=== PATIENT | female | born 1955 | race Caucasian/White ===

== ENCOUNTER → 2016-03-28 | Outpatient (CLI) | payer MEDICARE ==
[~2016-03-28] MED LIST: /MOM400 PO; /PANT40TA PO; ADV100INH INH; AUGM875T27 PO; CYCL5TAB PO; DIAZ5SOL PO; DOXE10CA2 PO; NAPR500T2 PO; NITR50CA2 PO; NORC5TAB PO; TOPA50TA PO; VICO5TA PO
--- NOTE | 2016-03-28 16:16 | REP ---
RIGHT TIBIA/FIBULA: REASON FOR EXAM: Pain after trauma. COMPARISON: 12/16/2010 FINDINGS: No acute fracture or destructive osseous lesion. Degenerative changes are again seen involving the knee and ankle, increased slightly from the prior exam. Signed by Nic Quinones DO 03/28/2016 04:41 P
--- NOTE | 2016-03-28 16:18 | REP ---
RIGHT KNEE: HISTORY: Pain after trauma. COMPARISON: None. There is tricompartmental marginal osteophytosis with tricompartmental narrowing rather symmetrically. There is no acute fracture. The bones appear somewhat demineralized. IMPRESSION: Chronic changes as described above. Signed by Nic Quinones DO 03/28/2016 04:41 P
== END ==
LOC: M WUC 15:14
PROVIDERS: ATTEND Physician Assistant
DX: S80.11XA Contusion of right lower leg, initial encounter (principal); S80.01XA Contusion of right knee, initial encounter; X58.XXXA Exposure to other specified factors, initial encounter; Y92.89 Other specified places as the place of occurrence of the external cause

== ENCOUNTER → 2016-04-08 | Outpatient (CLI) | payer OTHER, MEDICARE ==
--- NOTE | 2016-04-13 23:25 | ECWPNPC ---
PATIENT NAME: ADY KING : 1955 GENDER: FEMALE VISIT DATE: 04/08/2016 DISCHARGE DATE: 04/08/16 1251 VISIT LOCKED DATE TIME: PHYSICIAN: SHELBI GASTELUM RESOURCE: SHELBI GASTELUM REASON FOR APPOINTMENT 1. W/C BACK HISTORY OF PRESENT ILLNESS HISTORY OF PRESENT ILLNESS: PAIN THE PATIENT DESCRIBES THE PAIN... 60 YEAR OLD FEMALE PATIENT WITH HISTORY OF CHRONIC LOW BACK PAIN. PATIENT DESCRIBES THE PAIN TENDER, THROBBING, SORE, AND HAVING IT ALL THE TIME WITH A PAIN SCORE OF 8/10. PATIENT WAS INJURED IN A WORK RELATED INJURY ON 11/15/1991 WORKING FOR [employer], PATIENT WAS HELPING A PATIENT OFF A BUS WHEN SHE INJURED HER BACK. MRS. KING STATES THAT SHE ALSO WAS INJURED FROM LIFTING NUMEROUS PATIENTS AND IT ENDED UP BEING TOO MUCH FOR HER BACK. PATIENT INDICATES THE CURRENT MEDICATION REGIMEN INCREASES HER MOBILITY AND FUNCTIONALITY. PATIENT STATES THAT HEAT HELPS TO RELIEVE THE PAIN BUT WALKING AND SITTING INCREASES THE PAIN THE MOST IN HER LOWER BACK. PATIENT DENIES UNEXPLAINABLE WEIGHT LOSS, FEVER, CHILLS, NEW CHANGES ON HER URINARY OR BOWEL CONTROL. FALL RISK SCREENING: SCREENING :NO FALLS IN THE PAST YEAR CURRENT MEDICATIONS TAKING PROTONIX 40 MG TABLET DELAYED RELEASE DIRECTED ORALLY BID FOR STOMACH PAIN MDD2 TAKING CYMBALTA 30 MG CAPSULE DELAYED RELEASE PARTICLES 1 CAPSULE ORALLY WITH FOOD TWICE A DAY FOR PAIN MDD2 TAKING CYCLOBENZAPRINE HCL 10 MG TABLET 1 TABLET ORALLY BID NEEDED FOR SPASMS AND PAIN MDD2 TAKING ADVAIR DISKUS 100-50 MCG/DOSE MISCELLANEOUS 1 INHALATION EVERY 12 HRS TAKING TOPIRAMATE 50 50MG TABLET 1 TAB ORAL ONCE A DAY TAKING NITROFURANTOIN MACROCRYSTAL 100 MG CAPSULE 1 CAPSULE WITH FOOD OR MILK ORALLY EVERY 6 HRS TAKING ATORVASTATIN CALCIUM 20 MG TABLET 1 TABLET ORALLY ONCE A DAY TAKING DIAZEPAM 5 MG TABLET 2 TABLETS IN THE MORNING AND 1.5 TABLETS IN THE EVENING NEEDED FOR ANXIETY ORALLY DAILY TAKING DICYCLOMINE HCL 10 MG CAPSULE 1 CAPSULE ORALLY FOUR TIMES DAILY NEEDED TAKING VICODIN 5-300 MG TABLET 1 TABLET NEEDED FOR PAIN ORALLY Q12 PRN FOR PAIN PRN FOR PAIN MDD2 TAKING ALBUTEROL SULFATE HFA 108 (90 BASE) MCG/ACT AEROSOL SOLUTION 2 PUFFS NEEDED INHALATION EVERY 4 HRS NOT-TAKING SULFASALAZINE 500 MG TABLET 1 TABLET ORALLY TWO TIMES A DAY DISCONTINUED FLEXERIL 10 MG TABLET 1 CAP ORALLY BID NEEDED FOR SPASMS AND PAIN MEDICATION LIST REVIEWED AND RECONCILED WITH THE PATIENT PAST MEDICAL HISTORY SPONDYLOLITHESIS FIBROMYALGIA ASTHMA CHRONIC CYSTITIS KIDNEY STONES DEPRESSION LEFT INTERNAL CAROTID ANEURYSM - S/P COIL/STENT 01/2012; DR. HERNANDEZ IN [place] [facility] - DR. JACKSON ANXIETY DIVERTICULOSIS REFLUX ESOPHAGITIS CHEMICAL GASTRITIS ALLERGIES N.K.D.A. SURGICAL HISTORY LAMINECTOMY AND DISCECTOMY WITH REMOVAL OF DISC FAENT 05-20-1992 CEREBRAL ANEURYSM 2010 FAMILY HISTORY NO FAMILY HISTORY DOCUMENTED. SOCIAL HISTORY GENERAL: TOBACCO USE ARE YOU A:NONSMOKER LEARNING BARRIERS / SPECIAL NEEDS ORIENTED TO PLAN OF CARE: PATIENT, PAIN MANAGEMENT PATIENT, ORIENTED TO PLAN OF CARE: PATIENT, PAIN MANAGEMENT PATIENT. NEW PATIENT PAIN DIARY TODAY'S VISITNOTES FROM 0-10, WHAT LEVEL IS YOUR PAIN TODAY?0 PAIN CLINIC PFS, CLERGY, PUBLIC HEALTH REFERRALS PFS REFERRAL NEEDED?NO CLERGY REFERRAL NEEDED?NO PUBLIC HEALTH REFERRAL NEEDED?NO WAS THE PROVIDER NOTIFIED OF ANY PERTINENT INFO?NO PFS REFERRAL NEEDED?NO CLERGY REFERRAL NEEDED?NO PUBLIC HEALTH REFERRAL NEEDED?NO WAS THE PROVIDER NOTIFIED OF ANY PERTINENT INFO?NO HOSPITALIZATION/MAJOR DIAGNOSTIC PROCEDURE NO HOSPITALIZATION HISTORY. REVIEW OF SYSTEMS CONSTITUTIONAL: ANY CHANGE IN YOUR MEDICAL CONDITION? NO . CHILLS NO . FEVER NO . INFECTION: DO YOU HAVE NEW INFECTIONS? NO . DO YOU HAVE HISTORY OF MRSA? NO . MUSCULOSKELETAL: ANY NEW PATTERNS OF PAIN OR NUMBNESS? NO . GASTROENTEROLOGY: ANY NEW CHANGE IN BOWEL CONTROL? NO . GENITOURINARY: ANY NEW CHANGE IN BLADDER CONTROL? NO . IS THERE A CHANCE YOU COULD BE ? NO . HEMATOLOGY/LYMPH: DO YOU TAKE ANY BLOOD THINNERS? (FOR EXAMPLE- COUMADIN, PLAVIX, AGGRENOX, PLATEL, PRADAXA, OR XARELTO) NO . WHEN WAS YOUR LAST DOSE? DATE: TIME: . NEUROLOGY: HAVE YOU FALLEN IN THE PAST 6 MONTHS? YES. FELL 03/29/16 SEEN AT AND ORTHO-SPRAIN RIGHT LEG AND THUMB . ANY NEW EXTREMITY NUMBNESS OR WEAKNESS? NO . CARDIOLOGY: DO YOU HAVE A PACEMAKER OR DEFIBRILLATOR? NO . RESPIRATORY: HAVE YOU BEEN SICK IN THE PAST WEEK? NO . FEVER NO . FLU LIKE SYMPTOMS? NO . COUGH NO . INTEGUMENTARY: DO YOU HAVE ANY RASHES OR OPEN SORES? NO . ALLERGIC/IMMUNO: ARE YOU ALLERGIC TO SHELLFISH OR IV DYE? NO . ANY NEW ALLERGIES? NO . PSYCHIATRIC: DO YOU HAVE THOUGHTS OF HURTING YOURSELF OR SOMEONE ELSE? NO . ARE YOU ABUSED, NEGLECTED, OR IN AN UNSAFE ENVIRONMENT? NO . ENDOCRINOLOGY: ARE YOU DIABETIC? NO . OTHER: DO YOU NEED ANY PRESCRIPTIONS? YES, HYDROCODONE . IF YES, PLEASE LIST: ____ . ANY NEW PROBLEMS WITH YOUR MEDICATIONS? NO . WHEN DID YOU LAST EAT? ____ . WHEN DID YOU LAST DRINK? ____ . WHAT DID YOU LAST DRINK? ____ . NAME OF PERSON DRIVING YOU HOME? ____ . DO YOU HAVE ANY OTHER QUESTIONS OR CONCERNS NO . REVIEWED BY: PROVIDER: SHELBI GASTELUM MD . VITAL SIGNS WT 205 LBS, HT 66", BMI 33.08 INDEX, BP 138/77 MM HG, HR 100 /MIN, RR 16 /MIN, TEMP 99'1, OXYGEN SAT % 97%, NA INITIALS SC 11:17, REVIEWED BY: AD. EXAMINATION : PATIENT IS ALERT O X 3 AND COOPERATIVE. PATIENT AMBULATES SLOWLY WITH AN ANTALGIC GAIT. PATIENT'S RIGHT LEG IS WEAKER AT FLEXION AND EXTENSION COMPARED TO THE LEFT LEG. ASSESSMENTS OTHER CHRONIC PAIN - G89.29 (PRIMARY) MYALGIA - M79.1 TREATMENT OTHER CHRONIC PAIN REFILL VICODIN TABLET, 5-300 MG, 1 TABLET NEEDED FOR PAIN, ORALLY, TWICE DAILY NEEDED FOR PAIN MDD2, 30 DAYS, 60, REFILLS 0 NOTES: WE DISCUSSED SEVERAL ISSUES WITH MRS. KING'S PAIN MANAGEMENT CASE. AT THIS TIME THE PATIENT WILL CONTINUE WITH THE SAME MEDICATION REGIME. PATIENT WILL RECEIVE A REFILL OF VICODIN TODAY. PATIENT DENIES ABUSE OF ANY MEDICATION, DENIES USE OF ILLEGAL SUBSTANCES, AND STATES THAT SHE ONLY USES THE MEDICATION FOR PAIN MANAGEMENT. PATIENT EXPRESSED CONCERNS THAT MEDICATION MANAGEMENT IS THE ONLY THING THAT HELPS TO RELIEVE PAIN. MRS. KING DOES NOT WANT ANY INTERVENTIONS AND STATES THEY DO NOT WORK. URINE TOX DONE ON 01-29-2016 SHOWS CONSISTENT RESULTS. PATIENT DID NOT BRING IN HER MEDICATION BOTTLE TO TODAY'S VISIT, PATIENT INFORMED TO BRING THEM NEXT TIME. OPIOID RISK TOOL COMPLETED TODAY. PATIENT WILL FOLLOW UP IN 5 WEEKS. , INSTRUCTIONS WERE GIVEN, QUESTIONS WERE ANSWERED, PATIENT REPORTS UNDERSTANDING AND AGREES WITH THE PLAN. ICALLIE, DOCUMENTED THE ABOVE INFORMATION ACTING A SCRIBE FOR DR. GASTELUM. I HAVE REVIEWED THE ABOVE DOCUMENT, WRITTEN BY CALLIE ARORA SCRIBE AND I VERIFY THAT IT IS ACCURATE. PROCEDURES PN WORKMANS' COMP OPINION IN YOUR OPINION, WAS THE INCIDENT THAT THE PATIENT DESCRIBED THE COMPETENT MEDICAL CAUSE OF THIS INJURY/ILLNESS? YES ARE THE PATIENT'S COMPLAINTS CONSISTENT WITH HIS/HER HISTORY OF THE INJURY/ILLNESS? YES IS THE PATIENT'S HISTORY OF THE INJURY/ILLNESS CONSISTENT WITH YOUR OBJECTIVE FINDING? YES WHAT IS THE PERCENTAGE OF TEMPORARY IMPAIRMENT? MODERATE TO MARKED = 66.7% IS THE PATIENT WORKING? NO DOCTOR ON SITE: SHELBI ERAZO MD PROCEDURE CODES FA211 ESTABILISHED PATIENT [facility] FACILITY CHARGE G8730 PAIN ASSESS POS TOOL F/U PLAN DOC G8427 DOC MEDS VERIFIED W/PT OR RE FOLLOW UP 5 WEEKS ELECTRONICALLY SIGNED BY SHELBI GASTELUM MD ON 04/13/2016 AT 10:46 PM EST DISCLAIMER : THIS IS A VISIT SUMMARY EXTRACTED FROM THE [employer] CHART. IT IS NOT A COPY OF THE [employer] PROGRESS NOTE. MARCIAL
== END ==
LOC: M PAIN 11:20
PROVIDERS: ATTEND Anesthesiology
DX: G89.29 Other chronic pain (principal); M54.5 Low back pain; M79.7 Fibromyalgia; M43.10 Spondylolisthesis, site unspecified; J45.909 Unspecified asthma, uncomplicated; N30.20 Other chronic cystitis without hematuria; K21.9 Gastro-esophageal reflux disease without esophagitis; F32.9 Major depressive disorder, single episode, unspecified; F41.9 Anxiety disorder, unspecified; H40.9 Unspecified glaucoma; Z79.891 Long term (current) use of opiate analgesic; Z79.899 Other long term (current) drug therapy; Z86.79 Personal history of other diseases of the circulatory system; Z87.19 Personal history of other diseases of the digestive system

== ENCOUNTER → 2016-05-30 | Outpatient (CLI) | payer OTHER, MEDICARE ==
--- NOTE | 2016-06-08 23:49 | ECWPNPC ---
PATIENT NAME: ADY KING : 1955 GENDER: FEMALE VISIT DATE: 05/30/2016 DISCHARGE DATE: 05/30/16 1539 VISIT LOCKED DATE TIME: PHYSICIAN: SHELBI GASTELUM RESOURCE: SHELBI GASTELUM REASON FOR APPOINTMENT 1. W/C FOLLOW UP HISTORY OF PRESENT ILLNESS HISTORY OF PRESENT ILLNESS: PAIN THE PATIENT DESCRIBES THE PAIN... 60 YEAR OLD FEMALE PATIENT WITH HISTORY OF CHRONIC LOW BACK PAIN. PATIENT DESCRIBES THE PAIN SHARP WITH A PAIN SCORE OF 8/10 ON TODAY'S VISIT. PATIENT WAS INJURED IN A WORK RELATED INJURY ON 11/15/1991 WORKING FOR [employer], PATIENT WAS HELPING A PATIENT OFF A BUS WHEN SHE INJURED HER BACK. MRS. KING STATES THAT SHE ALSO WAS INJURED FROM LIFTING NUMEROUS PATIENTS AND IT ENDED UP BEING TOO MUCH FOR HER BACK. PATIENT REPORTS THAT SHE HAS TRIED PT IN THE PAST. PATIENT HAS RADIATING PAIN TO BOTH LEGS TODAY, LEFT HURTS MORE THAN THE RIGHT. PATIENT REPORTS THAT CYCLOBENZAPRINE HELPS HER SLEEP AT NIGHT AND STAY ASLEEP, WITHOUT IT SHE WOULD BE WAKING UP MULTIPLE TIMES DUE TO THE SPASMS AND PAIN. PATIENT DENIES UNEXPLAINABLE WEIGHT LOSS, FEVER, CHILLS, NEW CHANGES ON HER URINARY OR BOWEL CONTROL. FALL RISK SCREENING: SCREENING :NO FALLS IN THE PAST YEAR CURRENT MEDICATIONS TAKING ADVAIR DISKUS 100-50 MCG/DOSE MISCELLANEOUS 1 INHALATION EVERY 12 HRS TAKING TOPIRAMATE 50 50MG TABLET 1 TAB ORAL ONCE A DAY TAKING NITROFURANTOIN MACROCRYSTAL 100 MG CAPSULE 1 CAPSULE WITH FOOD OR MILK ORALLY EVERY 6 HRS TAKING ATORVASTATIN CALCIUM 20 MG TABLET 1 TABLET ORALLY ONCE A DAY TAKING DICYCLOMINE HCL 10 MG CAPSULE 1 CAPSULE ORALLY FOUR TIMES DAILY NEEDED TAKING ALBUTEROL SULFATE HFA 108 (90 BASE) MCG/ACT AEROSOL SOLUTION 2 PUFFS NEEDED INHALATION EVERY 4 HRS TAKING DIAZEPAM 5 MG TABLET 2 TABLETS IN THE MORNING AND 1.5 TABLETS IN THE EVENING NEEDED FOR ANXIETY ORALLY DAILY MDD#3.5 TAKING VICODIN 5-300 MG TABLET 1 TABLET NEEDED FOR PAIN ORALLY TWICE DAILY NEEDED FOR PAIN MDD2 TAKING CYMBALTA 30 MG CAPSULE DELAYED RELEASE PARTICLES 1 CAPSULE ORALLY WITH FOOD TWICE A DAY FOR PAIN MDD2 TAKING CYCLOBENZAPRINE HCL 10 MG TABLET 1 TABLET ORALLY BID NEEDED FOR SPASMS AND PAIN MDD2 TAKING PROTONIX 40 MG TABLET DELAYED RELEASE DIRECTED ORALLY BID FOR STOMACH PAIN MDD2 TAKING XALATAN 0.005 % SOLUTION 1 DROP INTO AFFECTED EYE IN THE EVENING OPHTHALMIC ONCE A DAY NOT-TAKING SULFASALAZINE 500 MG TABLET 1 TABLET ORALLY TWO TIMES A DAY MEDICATION LIST REVIEWED AND RECONCILED WITH THE PATIENT PAST MEDICAL HISTORY SPONDYLOLITHESIS FIBROMYALGIA ASTHMA CHRONIC CYSTITIS KIDNEY STONES DEPRESSION LEFT INTERNAL CAROTID ANEURYSM - S/P COIL/STENT 01/2012; DR. HERNANDEZ IN [place] [facility] - DR. JACKSON ANXIETY DIVERTICULOSIS REFLUX ESOPHAGITIS CHEMICAL GASTRITIS ALLERGIES N.K.D.A. SURGICAL HISTORY LAMINECTOMY AND DISCECTOMY WITH REMOVAL OF DISC FAGMENT 05-20-1992 CEREBRAL ANEURYSM 2010 FAMILY HISTORY NO FAMILY HISTORY DOCUMENTED. SOCIAL HISTORY GENERAL: TOBACCO USE ARE YOU A:NONSMOKER LEARNING BARRIERS / SPECIAL NEEDS ORIENTED TO PLAN OF CARE: PATIENT, PAIN MANAGEMENT PATIENT, ORIENTED TO PLAN OF CARE: PATIENT, PAIN MANAGEMENT PATIENT. NEW PATIENT PAIN DIARY TODAY'S VISITNOTES FROM 0-10, WHAT LEVEL IS YOUR PAIN TODAY?0 PAIN CLINIC PFS, CLERGY, PUBLIC HEALTH REFERRALS PFS REFERRAL NEEDED?NO CLERGY REFERRAL NEEDED?NO PUBLIC HEALTH REFERRAL NEEDED?NO WAS THE PROVIDER NOTIFIED OF ANY PERTINENT INFO?NO PFS REFERRAL NEEDED?NO CLERGY REFERRAL NEEDED?NO PUBLIC HEALTH REFERRAL NEEDED?NO WAS THE PROVIDER NOTIFIED OF ANY PERTINENT INFO?NO HOSPITALIZATION/MAJOR DIAGNOSTIC PROCEDURE NO HOSPITALIZATION HISTORY. REVIEW OF SYSTEMS CONSTITUTIONAL: ANY CHANGE IN YOUR MEDICAL CONDITION? YES PT INJURED MENISCUS RIGHT KNEE AND THUMB OF RIGHT HAND, BOTH WILL REQUIRE SURGERY . CHILLS NO . FEVER NO . INFECTION: DO YOU HAVE NEW INFECTIONS? NO . DO YOU HAVE HISTORY OF MRSA? NO . MUSCULOSKELETAL: ANY NEW PATTERNS OF PAIN OR NUMBNESS? NO . GASTROENTEROLOGY: ANY NEW CHANGE IN BOWEL CONTROL? NO . GENITOURINARY: ANY NEW CHANGE IN BLADDER CONTROL? NO . IS THERE A CHANCE YOU COULD BE ? NO . HEMATOLOGY/LYMPH: DO YOU TAKE ANY BLOOD THINNERS? (FOR EXAMPLE- COUMADIN, PLAVIX, AGGRENOX, PLATEL, PRADAXA, OR XARELTO) NO . WHEN WAS YOUR LAST DOSE? DATE: TIME: . NEUROLOGY: HAVE YOU FALLEN IN THE PAST 6 MONTHS? YES PT REPORTS SHE SLIPPED AND FELL, INJURING RIGHT KNEE. SEEN BY [facility], FOR UPCOMING SURGERY . ANY NEW EXTREMITY NUMBNESS OR WEAKNESS? NO . CARDIOLOGY: DO YOU HAVE A PACEMAKER OR DEFIBRILLATOR? NO . RESPIRATORY: HAVE YOU BEEN SICK IN THE PAST WEEK? NO . FEVER NO . FLU LIKE SYMPTOMS? NO . COUGH NO . INTEGUMENTARY: DO YOU HAVE ANY RASHES OR OPEN SORES? NO . ALLERGIC/IMMUNO: ARE YOU ALLERGIC TO SHELLFISH OR IV DYE? NO . ANY NEW ALLERGIES? NO . PSYCHIATRIC: DO YOU HAVE THOUGHTS OF HURTING YOURSELF OR SOMEONE ELSE? NO . ARE YOU ABUSED, NEGLECTED, OR IN AN UNSAFE ENVIRONMENT? NO . ENDOCRINOLOGY: ARE YOU DIABETIC? NO . OTHER: DO YOU NEED ANY PRESCRIPTIONS? NO . IF YES, PLEASE LIST: ____ . ANY NEW PROBLEMS WITH YOUR MEDICATIONS? NO . WHEN DID YOU LAST EAT? ____ . WHEN DID YOU LAST DRINK? ____ . WHAT DID YOU LAST DRINK? ____ . NAME OF PERSON DRIVING YOU HOME? ____ . DO YOU HAVE ANY OTHER QUESTIONS OR CONCERNS NO . REVIEWED BY: PROVIDER: SHELBI GASTELUM MD . VITAL SIGNS WT 198 LBS, HT 66", BMI 31.95 INDEX, BP 149/85 MM HG, HR 104 /MIN, RR 18 /MIN, TEMP 98.8 F, OXYGEN SAT % 97, SAFE IN ENV? (Y/N) YES, NA INITIALS TL 1429, REVIEWED BY: BO. EXAMINATION : PATIENT IS ALERT O X 3 AND COOPERATIVE. PATIENT AMBULATES SLOWLY WITH AN ANTALGIC GAIT. PATIENT'S RIGHT LEG IS WEAKER AT FLEXION AND EXTENSION COMPARED TO THE LEFT LEG. PATIENT HAS TENDERNESS IN THE SACROILIAC PARASPINAL MUSCLE GROUP. 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 KING'S PAIN MANAGEMENT CASE .AT THIS TIME THE PATIENT WILL CONTINUE WITH THE SAME MEDICATION REGIME. PATIENT WILL RECEIVE A REFILL OF VICODIN, PROTONIX, CYCLOBENZAPRINE, AND CYMBALTA. PATIENT BROUGHT HER MEDICATION BOTTLES TO TODAY'S VISIT INSTRUCTED TO DO FOR EVERY VISIT. PATIENT IS USING CYMBALTA FOR NEUROPATHIC PAIN DOWN THE LEGS, FLEXERIL FOR SPASTICITY, AND VICODIN FOR SOMATIC PAIN. PATIENT DENIES ABUSE OF ANY MEDICATION, DENIES USE OF ILLEGAL SUBSTANCES, AND STATES THAT SHE ONLY USES THE MEDICATION FOR PAIN MANAGEMENT. PATIENT INFORMED ME THAT SHE IS HAVING SURGERY FOR A NON COVERED BODY PART SOON. I DISCUSSED WITH THE PATIENT THAT I DO NOT COVER POST SURGICAL PAIN AND THAT SHE NEEDS TO DISCUSS THOSE PAIN NEEDS WITH HER SURGEON FOR THE SURGICAL PAIN. PATIENT IS A GOOD CANDIDATE FOR A [facility], BUT DUE TO THE UP COMING SURGERY I WILL FURTHER DISCUSS WITH THE PATIENT IF THIS IS SOMETHING THAT SHE WOULD LIKE TO PROCEED WITH. UTOX ORDERED ON 02-03-2016 SHOWS CONSISTENT RESULTS. PATIENT TO FOLLOW UP WITH ME IN 5 WEEKS. , INSTRUCTIONS WERE GIVEN, QUESTIONS WERE ANSWERED, PATIENT REPORTS UNDERSTANDING AND AGREES WITH THE PLAN. I, CALLIE ARORA, DOCUMENTED THE ABOVE INFORMATION ACTING A SCRIBE FOR DR. GASTELUM. I HAVE REVIEWED THE ABOVE DOCUMENT, WRITTEN BY CALLIE ARORA SCRIBGalina AND I VERIFY THAT IT IS ACCURATE. OTHERS REFILL CYMBALTA CAPSULE DELAYED RELEASE PARTICLES, 30 MG, 1 CAPSULE, ORALLY WITH FOOD, TWICE A DAY FOR PAIN MDD2, 30 DAY(S), 60, REFILLS 2 REFILL CYCLOBENZAPRINE HCL TABLET, 10 MG, 1 TABLET, ORALLY, BID NEEDED FOR SPASMS AND PAIN MDD2, 30 DAY(S), 60, REFILLS 2 REFILL VICODIN TABLET, 5-300 MG, 1 TABLET NEEDED FOR PAIN, ORALLY, TWICE DAILY NEEDED FOR PAIN MDD2, 30 DAYS, 55, REFILLS 0 REFILL PROTONIX TABLET DELAYED RELEASE, 40 MG, DIRECTED, ORALLY, BID FOR STOMACH PAIN MDD2, 30 DAY(S), 60, REFILLS 2 PROCEDURES PN WORKMANS' COMP OPINION IN YOUR OPINION, WAS THE INCIDENT THAT THE PATIENT DESCRIBED THE COMPETENT MEDICAL CAUSE OF THIS INJURY/ILLNESS? YES ARE THE PATIENT'S COMPLAINTS CONSISTENT WITH HIS/HER HISTORY OF THE INJURY/ILLNESS? YES IS THE PATIENT'S HISTORY OF THE INJURY/ILLNESS CONSISTENT WITH YOUR OBJECTIVE FINDING? YES WHAT IS THE PERCENTAGE OF TEMPORARY IMPAIRMENT? MODERATE TO MARKED = 66.7% IS THE PATIENT WORKING? NO DOCTOR ON SITE: SHELBI ERAZO MD PROCEDURE CODES FA211 ESTABILISHED PATIENT [facility] FACILITY CHARGE G8730 PAIN ASSESS POS TOOL F/U PLAN DOC G8427 DOC MEDS VERIFIED W/PT OR RE DISPOSITION & COMMUNICATION FOLLOW UP 5 WEEKS ELECTRONICALLY SIGNED BY SHELBI GASTELUM MD ON 06/08/2016 AT 08:36 PM EDT DISCLAIMER : THIS IS A VISIT SUMMARY EXTRACTED FROM THE [email or web address] CHART. IT IS NOT A COPY OF THE [email or web address] PROGRESS NOTE. MARCIAL
== END ==
LOC: M PAIN 14:40
PROVIDERS: ATTEND Anesthesiology
DX: M96.1 Postlaminectomy syndrome, not elsewhere classified (principal); M46.1 Sacroiliitis, not elsewhere classified; M79.7 Fibromyalgia; M54.42 Lumbago with sciatica, left side; M54.41 Lumbago with sciatica, right side; J45.909 Unspecified asthma, uncomplicated; F41.9 Anxiety disorder, unspecified; K20.8 Other esophagitis; N30.20 Other chronic cystitis without hematuria; Z79.891 Long term (current) use of opiate analgesic; Z79.899 Other long term (current) drug therapy

== ENCOUNTER → 2016-06-19 | Outpatient (CLI) | payer MEDICARE, OTHER ==
[2016-06-19 18:35] LABS: PLATELET COUNT, AUTOMATED 266 k/mm3 (150-450)
[2016-06-19 21:08] LABS: ERYTHROCYTE SEDIMENTATION RATE 23 mm/hr (0-30)
== END ==
LOC: M LAB 16:30
PROVIDERS: ATTEND Ophthalmology
DX: G93.81 Temporal sclerosis (principal)

== ENCOUNTER → 2016-06-26 | Outpatient (REF) | payer MEDICARE ==
[2016-06-26 15:37] LABS: MEAN CORPUSCULAR HEMOGLOBIN 26.7 pg (27.0-33.0); MEAN CORPUSCULAR HGB CONC 31.3 g/dl (32.0-36.5); MEAN CORPUSCULAR VOLUME 85.4 fl (80.0-96.0); RED CELL DISTRIBUTION WIDTH 14.7 % (11.5-14.5); WHITE BLOOD COUNT 8.5 K/mm3 (4.0-10.0)
[2016-06-26 15:46] LABS: ANION GAP 7 MEQ/L (8-16); BLOOD UREA NITROGEN 15 MG/DL (7-18); CALCIUM LEVEL 9.1 MG/DL (8.8-10.2); CARBON DIOXIDE LEVEL 26 MEQ/L (21-32); CHLORIDE LEVEL 109 MEQ/L (98-107); CREATININE FOR GFR 0.86 MG/DL (0.55-1.02); GLOMERULAR FILTRATION RATE > 60.0 (>45); GLUCOSE, FASTING 89 MG/DL (80-110); POTASSIUM SERUM 4.3 MEQ/L (3.5-5.1); SODIUM LEVEL 142 MEQ/L (136-145)
== END ==
LOC: M SFHCPLAZ 13:50
PROVIDERS: ATTEND Family Medicine
DX: Z01.810 Encounter for preprocedural cardiovascular examination (principal); M11.1 Familial chondrocalcinosis; M65.311 Trigger thumb, right thumb

== ENCOUNTER → 2016-06-27 | Outpatient (CLI) | payer MEDICARE ==
--- NOTE | 2016-07-08 01:38 | ECWPNPC ---
PATIENT NAME: ADY KING : 1955 GENDER: FEMALE VISIT DATE: 06/27/2016 DISCHARGE DATE: 06/27/16 1458 VISIT LOCKED DATE TIME: PHYSICIAN: SHELBI GASTELUM RESOURCE: SHELBI GASTELUM REASON FOR APPOINTMENT 1. W/C LOW BACK HISTORY OF PRESENT ILLNESS HISTORY OF PRESENT ILLNESS: PAIN THE PATIENT DESCRIBES THE PAIN... 60 YEAR OLD FEMALE PATIENT WITH HISTORY OF CHRONIC BACK PAIN. PATIENT DESCRIBES THE PAIN ACHING, SORE, SHOOTING, AND HAVING IT ALL THE TIME WITH A PAIN SCORE OF 8/10 ON TODAY'S VISIT. 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 MRS. KING STATES THAT SHE WAS ALSO INJURED FROM LIFTING NUMEROUS PATIENTS AND IT ENDED UP BEING TOO MUCH FOR HER BACK. PATIENT STATES THAT SHE HAS TRIED PT IN THE PAST AND IT DID NOT REALLY WORK FOR HER. PATIENT STATES THAT SHE HAS HAD ONE BACK SURGERY IN 05-20-1992. PATIENT HAS RADIATING PAIN TO BOTH LEGS TODAY, LEFT HURTS MORE THAN THE RIGHT. PATIENT REPORTS THAT SOMETIMES AT NIGHT SHE HAS DIFFICULTIES SLEEPING AND STAYING ASLEEP DUE TO THE PAIN. PATIENT DENIES UNEXPLAINABLE WEIGHT LOSS, FEVER, CHILLS, NEW CHANGES ON HER URINARY OR BOWEL CONTROL. FALL RISK SCREENING: SCREENING :NO FALLS IN THE PAST YEAR CURRENT MEDICATIONS TAKING TOPIRAMATE 50 50MG TABLET 1 TAB ORAL ONCE A DAY TAKING NITROFURANTOIN MACROCRYSTAL 100 MG CAPSULE 1 CAPSULE WITH FOOD OR MILK ORALLY EVERY 6 HRS TAKING ATORVASTATIN CALCIUM 20 MG TABLET 1 TABLET ORALLY ONCE A DAY TAKING DIAZEPAM 5 MG TABLET 2 TABLETS IN THE MORNING AND 1.5 TABLETS IN THE EVENING NEEDED FOR ANXIETY ORALLY DAILY MDD#3.5 TAKING PROTONIX 40 MG TABLET DELAYED RELEASE DIRECTED ORALLY BID FOR STOMACH PAIN MDD2 TAKING CYMBALTA 30 MG CAPSULE DELAYED RELEASE PARTICLES 1 CAPSULE ORALLY WITH FOOD TWICE A DAY FOR PAIN MDD2 TAKING CYCLOBENZAPRINE HCL 10 MG TABLET 1 TABLET ORALLY BID NEEDED FOR SPASMS AND PAIN MDD2 TAKING VICODIN 5-300 MG TABLET 1 TABLET NEEDED FOR PAIN ORALLY TWICE DAILY NEEDED FOR PAIN MDD2 TAKING XALATAN 0.005 % SOLUTION 1 DROP INTO AFFECTED EYE IN THE EVENING OPHTHALMIC ONCE A DAY TAKING ALBUTEROL SULFATE HFA 108 (90 BASE) MCG/ACT AEROSOL SOLUTION 2 PUFFS NEEDED INHALATION EVERY 4 HRS TAKING ADVAIR DISKUS 100-50 MCG/DOSE MISCELLANEOUS 1 INHALATION EVERY 12 HRS NOT-TAKING SULFASALAZINE 500 MG TABLET 1 TABLET ORALLY TWO TIMES A DAY NOT-TAKING DICYCLOMINE HCL 20 MG TABLET 1/2 TAB ORALLY FOUR TIMES DAILY NEEDED MEDICATION LIST REVIEWED AND RECONCILED WITH THE PATIENT PAST MEDICAL HISTORY SPONDYLOLITHESIS FIBROMYALGIA ASTHMA CHRONIC CYSTITIS KIDNEY STONES DEPRESSION LEFT INTERNAL CAROTID ANEURYSM - S/P COIL/STENT 01/2012; DR. HERNANDEZ IN [place] [facility] - DR. JACKSON ANXIETY DIVERTICULOSIS REFLUX ESOPHAGITIS CHEMICAL GASTRITIS ALLERGIES N.K.D.A. SURGICAL HISTORY LAMINECTOMY AND DISCECTOMY WITH REMOVAL OF DISC FAGMENT 05-20-1992 CEREBRAL ANEURYSM 2010 FAMILY HISTORY NO FAMILY HISTORY DOCUMENTED. SOCIAL HISTORY GENERAL: PAIN CLINIC PFS, CLERGY, PUBLIC HEALTH REFERRALS CLERGY REFERRAL NEEDED?NO WAS THE PROVIDER NOTIFIED OF ANY PERTINENT INFO?NO PFS REFERRAL NEEDED?NO PUBLIC HEALTH REFERRAL NEEDED?NO PATIENT: ____. HOSPITALIZATION/MAJOR DIAGNOSTIC PROCEDURE NO HOSPITALIZATION HISTORY. REVIEW OF SYSTEMS CONSTITUTIONAL: ANY CHANGE IN YOUR MEDICAL CONDITION? YES PT REPORTS SHE IS TO HAVE SURGERY 07/03 TO REPAIR TORN MENISCUS RIGHT KNEE AND SURGERY ON RIGHT THUMB. . CHILLS NO . FEVER NO . INFECTION: DO YOU HAVE NEW INFECTIONS? NO . DO YOU HAVE HISTORY OF MRSA? NO . MUSCULOSKELETAL: ANY NEW PATTERNS OF PAIN OR NUMBNESS? NO . GASTROENTEROLOGY: ANY NEW CHANGE IN BOWEL CONTROL? NO . GENITOURINARY: ANY NEW CHANGE IN BLADDER CONTROL? NO . IS THERE A CHANCE YOU COULD BE ? NO . HEMATOLOGY/LYMPH: DO YOU TAKE ANY BLOOD THINNERS? (FOR EXAMPLE- COUMADIN, PLAVIX, AGGRENOX, PLATEL, PRADAXA, OR XARELTO) NO . WHEN WAS YOUR LAST DOSE? DATE: TIME: . NEUROLOGY: HAVE YOU FALLEN IN THE PAST 6 MONTHS? NO . ANY NEW EXTREMITY NUMBNESS OR WEAKNESS? NO . CARDIOLOGY: DO YOU HAVE A PACEMAKER OR DEFIBRILLATOR? NO . RESPIRATORY: HAVE YOU BEEN SICK IN THE PAST WEEK? NO . FEVER NO . FLU LIKE SYMPTOMS? NO . COUGH NO . INTEGUMENTARY: DO YOU HAVE ANY RASHES OR OPEN SORES? NO . ALLERGIC/IMMUNO: ARE YOU ALLERGIC TO SHELLFISH OR IV DYE? NO . ANY NEW ALLERGIES? NO . PSYCHIATRIC: DO YOU HAVE THOUGHTS OF HURTING YOURSELF OR SOMEONE ELSE? NO . ARE YOU ABUSED, NEGLECTED, OR IN AN UNSAFE ENVIRONMENT? NO . ENDOCRINOLOGY: ARE YOU DIABETIC? NO . OTHER: DO YOU NEED ANY PRESCRIPTIONS? NO . IF YES, PLEASE LIST: ____ . ANY NEW PROBLEMS WITH YOUR MEDICATIONS? NO . WHEN DID YOU LAST EAT? ____ . WHEN DID YOU LAST DRINK? ____ . WHAT DID YOU LAST DRINK? ____ . NAME OF PERSON DRIVING YOU HOME? ____ . DO YOU HAVE ANY OTHER QUESTIONS OR CONCERNS YES PT REPORTS PRESCRIPTIONS ARE BEING QUESTIONED BY STATE INSURANCE, HER FITTER TYPE BAR AND SEGMENT WILL NEED A STATEMENT FROM DR. GASTELUM STATING NEED. . REVIEWED BY: PROVIDER: SHELBI GASTELUM MD . VITAL SIGNS WT 203 LBS, HT 66", BMI 32.76 INDEX, BP 150/74 MM HG, HR 105 /MIN, RR 18 /MIN, TEMP 96.6 F, OXYGEN SAT % 95, SAFE IN ENV? (Y/N) YES, NA INITIALS [id number], REVIEWED BY: BO. EXAMINATION : PATIENT IS ALERT O X 3 AND COOPERATIVE. PATIENT AMBULATES SLOWLY WITH AN ANTALGIC GAIT HOLDING A CANE ON THE LEFT HAND. PATIENT'S RIGHT LEG IS WEAKER AT FLEXION AND EXTENSION COMPARED TO THE LEFT LEG. PATIENT HAS TENDERNESS IN THE SACROILIAC PARASPINAL MUSCLE GROUP. ASSESSMENTS SACROILIITIS, NOT ELSEWHERE CLASSIFIED - M46.1 (PRIMARY) POSTLAMINECTOMY SYNDROME, NOT ELSEWHERE CLASSIFIED - M96.1 TREATMENT SACROILIITIS, NOT ELSEWHERE CLASSIFIED NOTES: WE DISCUSSED SEVERAL ISSUES WITH MRS. KING'S PAIN MANAGEMENT CASE .AT THIS TIME THE PATIENT WILL CONTINUE WITH THE SAME MEDICATION REGIME. PATIENT WILL RECEIVE A REFILL OF VICODIN, PROTONIX, CYCLOBENZAPRINE, AND CYMBALTA. PATIENT BROUGHT HER MEDICATION BOTTLES TO TODAY'S VISIT INSTRUCTED TO DO FOR EVERY VISIT. PATIENT IS TAKING VICODIN FOR SOMATIC PAIN IN THE BACK, PATIENT REPORTS THAT WITHOUT THIS MEDICATION SHE WILL NOT BE ABLE TO FUNCTION. PATIENT IS TAKING CYCLOBENZAPRINE FOR SPASTICITY, AND NOT TAKING THIS MEDICATION CAUSES SEVERE MUSCLE SPASMS IN HER BACK AND LEGS. PATIENT IS CYMBALTA FOR NEUROPATHIC PAIN DOWN THE LEGS. I DISCUSSED WITH THE PATIENT THAT SHE NEEDS TO DISCUSS WITH HER PRIMARY ABOUT PROTONIX, AND THAT SHE IS TAKING IS FOR STOMACH PAIN FROM TAKING PAIN MEDICATION AND TO RULE OUT AND GI PROBLEMS. I DISCUSSED WITH THE PATIENT I DO NOT DO REFILLS OVER THE PHONE. AFTER EXAMINING THE PATIENT IS A GOOD CANDIDATE FOR A SIJ, AND PATIENT REPORTS AT THIS TIME SHE DOES NOT WANT INTERVENTIONS AT THIS TIME. PATIENT TO FOLLOW UP WITH ME IN 10 WEEKS. INSTRUCTIONS WERE GIVEN, QUESTIONS WERE ANSWERED, PATIENT REPORTS UNDERSTANDING AND AGREES WITH THE PLAN. I, CALLIE ARORA, DOCUMENTED THE ABOVE INFORMATION ACTING A SCRIBE FOR DR. GASTELUM. I HAVE REVIEWED THE ABOVE DOCUMENT, WRITTEN BY CALLIE ARORA SCRIBE AND I VERIFY THAT IT IS ACCURATE. ,. OTHERS REFILL VICODIN TABLET, 5-300 MG, 1 TABLET NEEDED FOR PAIN, ORALLY (CODED FOR CHRONIC PAIN ), TWICE DAILY NEEDED FOR PAIN MDD2, 90 DAY(S), 150, REFILLS 0 REFILL CYMBALTA CAPSULE DELAYED RELEASE PARTICLES, 30 MG, 1 CAPSULE, ORALLY WITH FOOD, TWICE A DAY FOR PAIN MDD2, 30 DAY(S), 60, REFILLS 2 REFILL CYCLOBENZAPRINE HCL TABLET, 10 MG, 1 TABLET, ORALLY, BID NEEDED FOR SPASMS AND PAIN MDD2, 30 DAY(S), 60, REFILLS 2 REFILL PROTONIX TABLET DELAYED RELEASE, 40 MG, DIRECTED, ORALLY, BID FOR STOMACH PAIN MDD2, 30 DAY(S), 60, REFILLS 2 PROCEDURES PN WORKMANS' COMP OPINION IN YOUR OPINION, WAS THE INCIDENT THAT THE PATIENT DESCRIBED THE COMPETENT MEDICAL CAUSE OF THIS INJURY/ILLNESS? YES ARE THE PATIENT'S COMPLAINTS CONSISTENT WITH HIS/HER HISTORY OF THE INJURY/ILLNESS? YES IS THE PATIENT'S HISTORY OF THE INJURY/ILLNESS CONSISTENT WITH YOUR OBJECTIVE FINDING? YES WHAT IS THE PERCENTAGE OF TEMPORARY IMPAIRMENT? MODERATE TO MARKED = 66.7% IS THE PATIENT WORKING? NO DOCTOR ON SITE: SHELBI ERAZO MD PROCEDURE CODES FA211 ESTABILISHED PATIENT [facility] FACILITY CHARGE G8730 PAIN ASSESS POS TOOL F/U PLAN DOC G8427 DOC MEDS VERIFIED W/PT OR RE DISPOSITION & COMMUNICATION FOLLOW UP 10 WEEK ELECTRONICALLY SIGNED BY SHELBI GASTELUM MD ON 07/07/2016 AT 08:21 AM EDT DISCLAIMER : THIS IS A VISIT SUMMARY EXTRACTED FROM THE [employer] CHART. IT IS NOT A COPY OF THE [employer] PROGRESS NOTE. MTDD
== END ==
LOC: M PAIN 12:40
PROVIDERS: ATTEND Anesthesiology
DX: M46.1 Sacroiliitis, not elsewhere classified (principal); M96.1 Postlaminectomy syndrome, not elsewhere classified; M54.5 Low back pain; G89.29 Other chronic pain; Z79.891 Long term (current) use of opiate analgesic; Z79.899 Other long term (current) drug therapy; M79.7 Fibromyalgia; J45.20 Mild intermittent asthma, uncomplicated; N30.20 Other chronic cystitis without hematuria; F32.9 Major depressive disorder, single episode, unspecified; F41.9 Anxiety disorder, unspecified; K21.9 Gastro-esophageal reflux disease without esophagitis; K29.60 Other gastritis without bleeding; I67.1 Cerebral aneurysm, nonruptured; K57.90 Diverticulosis of intestine, part unspecified, without perforation or abscess without bleeding

== ENCOUNTER → 2016-07-21 | Outpatient (CLI) | payer OTHER, MEDICARE ==
--- NOTE | 2016-07-29 00:09 | ECWPNPC ---
PATIENT NAME: ADY KING : 1955 GENDER: FEMALE VISIT DATE: 07/21/2016 DISCHARGE DATE: 07/21/16 1721 VISIT LOCKED DATE TIME: PHYSICIAN: SHELBI GASTELUM RESOURCE: SHELBI GASTELUM REASON FOR APPOINTMENT 1. W/C LOW BACK PAIN HISTORY OF PRESENT ILLNESS HISTORY OF PRESENT ILLNESS: PAIN THE PATIENT DESCRIBES THE PAIN... 60 YEAR OLD FEMALE PATIENT WITH HISTORY OF CHRONIC LOW BACK PAIN. PATIENT DESCRIBES THE PAIN SHOOTING WITH A PAIN SCORE OF 9.5/10 AT TODAY'S VISIT. 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 MRS. KING STATES THAT SHE WAS ALSO INJURED FROM LIFTING NUMEROUS PATIENTS AND IT ENDED UP BEING TOO MUCH FOR HER BACK. PATIENT STATES THAT SHE HAS TRIED PT IN THE PAST AND IT DID NOT REALLY WORK FOR HER. PATIENT STATES THAT SHE HAS HAD ONE BACK SURGERY IN 05/20/1992. CURRENTLY THE PATIENT IS USING VICODIN, PROTONIX, CYCLOBENZAPRINE, AND CYMBALTA WHICH SHE STATES KEEPS HER MOBILE AND FUNCTIONAL. PATIENT REPORTS THAT SOMETIMES AT NIGHT SHE HAS DIFFICULTIES SLEEPING AND STAYING ASLEEP DUE TO THE PAIN. PATIENT DENIES UNEXPLAINABLE WEIGHT LOSS, FEVER, CHILLS, NEW CHANGES ON HER URINARY OR BOWEL CONTROL. FALL RISK SCREENING: SCREENING :NO FALLS IN THE PAST YEAR CURRENT MEDICATIONS TAKING TOPIRAMATE 50 50MG TABLET 1 TAB ORAL ONCE A DAY TAKING NITROFURANTOIN MACROCRYSTAL 100 MG CAPSULE 1 CAPSULE WITH FOOD OR MILK ORALLY EVERY 6 HRS TAKING ATORVASTATIN CALCIUM 20 MG TABLET 1 TABLET ORALLY ONCE A DAY TAKING XALATAN 0.005 % SOLUTION 1 DROP INTO AFFECTED EYE IN THE EVENING OPHTHALMIC ONCE A DAY TAKING ALBUTEROL SULFATE HFA 108 (90 BASE) MCG/ACT AEROSOL SOLUTION 2 PUFFS NEEDED INHALATION EVERY 4 HRS TAKING ADVAIR DISKUS 100-50 MCG/DOSE MISCELLANEOUS 1 INHALATION EVERY 12 HRS TAKING VICODIN 5-300 MG TABLET 1 TABLET NEEDED FOR PAIN ORALLY (CODED FOR CHRONIC PAIN ) TWICE DAILY NEEDED FOR PAIN MDD2 TAKING CYMBALTA 30 MG CAPSULE DELAYED RELEASE PARTICLES 1 CAPSULE ORALLY WITH FOOD TWICE A DAY FOR PAIN MDD2 TAKING CYCLOBENZAPRINE HCL 10 MG TABLET 1 TABLET ORALLY BID NEEDED FOR SPASMS AND PAIN MDD2 TAKING PROTONIX 40 MG TABLET DELAYED RELEASE DIRECTED ORALLY BID FOR STOMACH PAIN MDD2 TAKING DIAZEPAM 5 MG TABLET 2 TABLETS IN THE MORNING AND 1.5 TABLETS IN THE EVENING NEEDED FOR ANXIETY ORALLY DAILY MDD#3.5 NOT-TAKING SULFASALAZINE 500 MG TABLET 1 TABLET ORALLY TWO TIMES A DAY NOT-TAKING DICYCLOMINE HCL 20 MG TABLET 1/2 TAB ORALLY FOUR TIMES DAILY NEEDED MEDICATION LIST REVIEWED AND RECONCILED WITH THE PATIENT PAST MEDICAL HISTORY SPONDYLOLITHESIS FIBROMYALGIA ASTHMA CHRONIC CYSTITIS KIDNEY STONES DEPRESSION LEFT INTERNAL CAROTID ANEURYSM - S/P COIL/STENT 01/2012; DR. HERNANDEZ IN [place] [facility] - DR. JACKSON ANXIETY DIVERTICULOSIS REFLUX ESOPHAGITIS CHEMICAL GASTRITIS ALLERGIES N.K.D.A. SURGICAL HISTORY LAMINECTOMY AND DISCECTOMY WITH REMOVAL OF DISC FAGMENT 05-20-1992 CEREBRAL ANEURYSM 2010 FAMILY HISTORY NO FAMILY HISTORY DOCUMENTED. SOCIAL HISTORY GENERAL: PAIN CLINIC PFS, CLERGY, PUBLIC HEALTH REFERRALS CLERGY REFERRAL NEEDED?NO WAS THE PROVIDER NOTIFIED OF ANY PERTINENT INFO?NO PFS REFERRAL NEEDED?NO PUBLIC HEALTH REFERRAL NEEDED?NO PATIENT: ____. HOSPITALIZATION/MAJOR DIAGNOSTIC PROCEDURE NO HOSPITALIZATION HISTORY. REVIEW OF SYSTEMS CONSTITUTIONAL: ANY CHANGE IN YOUR MEDICAL CONDITION? NO . CHILLS NO . FEVER NO . INFECTION: DO YOU HAVE NEW INFECTIONS? NO . DO YOU HAVE HISTORY OF MRSA? NO . MUSCULOSKELETAL: ANY NEW PATTERNS OF PAIN OR NUMBNESS? NO . GASTROENTEROLOGY: ANY NEW CHANGE IN BOWEL CONTROL? NO . GENITOURINARY: ANY NEW CHANGE IN BLADDER CONTROL? NO . IS THERE A CHANCE YOU COULD BE ? NO . HEMATOLOGY/LYMPH: DO YOU TAKE ANY BLOOD THINNERS? (FOR EXAMPLE- COUMADIN, PLAVIX, AGGRENOX, PLATEL, PRADAXA, OR XARELTO) NO . WHEN WAS YOUR LAST DOSE? DATE: TIME: . NEUROLOGY: HAVE YOU FALLEN IN THE PAST 6 MONTHS? NO . ANY NEW EXTREMITY NUMBNESS OR WEAKNESS? NO . CARDIOLOGY: DO YOU HAVE A PACEMAKER OR DEFIBRILLATOR? NO . RESPIRATORY: HAVE YOU BEEN SICK IN THE PAST WEEK? NO . FEVER NO . FLU LIKE SYMPTOMS? NO . COUGH NO . INTEGUMENTARY: DO YOU HAVE ANY RASHES OR OPEN SORES? NO . ALLERGIC/IMMUNO: ARE YOU ALLERGIC TO SHELLFISH OR IV DYE? NO . ANY NEW ALLERGIES? NO . PSYCHIATRIC: DO YOU HAVE THOUGHTS OF HURTING YOURSELF OR SOMEONE ELSE? NO . ARE YOU ABUSED, NEGLECTED, OR IN AN UNSAFE ENVIRONMENT? NO . ENDOCRINOLOGY: ARE YOU DIABETIC? NO . OTHER: DO YOU NEED ANY PRESCRIPTIONS? NO . IF YES, PLEASE LIST: ____ . ANY NEW PROBLEMS WITH YOUR MEDICATIONS? NO . WHEN DID YOU LAST EAT? ____ . WHEN DID YOU LAST DRINK? ____ . WHAT DID YOU LAST DRINK? ____ . NAME OF PERSON DRIVING YOU HOME? ____ . DO YOU HAVE ANY OTHER QUESTIONS OR CONCERNS NO . REVIEWED BY: PROVIDER: SHELBI GASTELUM MD . VITAL SIGNS WT 201 LBS, HT 66", BMI 32.44 INDEX, BP 134/73 MM HG, HR 110 /MIN, RR 18 /MIN, TEMP 98.2 F, OXYGEN SAT % 97%, NA INITIALS AW 1454, REVIEWED BY: CM. EXAMINATION : PATIENT IS ALERT O X 3 AND COOPERATIVE. PATIENT AMBULATES SLOWLY WITH AN ANTALGIC GAIT. PATIENT'S RIGHT LEG IS WEAKER AT FLEXION AND EXTENSION COMPARED TO THE LEFT LEG. PATIENT HAS TENDERNESS IN THE SACROILIAC PARASPINAL MUSCLE GROUP. ASSESSMENTS POSTLAMINECTOMY SYNDROME, NOT ELSEWHERE CLASSIFIED - M96.1 (PRIMARY) OTHER CHRONIC PAIN - G89.29 MYALGIA - M79.1 TREATMENT POSTLAMINECTOMY SYNDROME, NOT ELSEWHERE CLASSIFIED NOTES: WE DISCUSSED SEVERAL ISSUES WITH MRS. KING PAIN MANAGEMENT CASE. AT THIS TIME THE PATIENT WILL CONTINUE TO USE THE SAME MEDICATION REGIME BEFORE. PATIENT IS USING THE CYCLOBENZAPRINE FOR THE MUSCLE SPASMS, PATIENT STATES IF SHE DOES NOT USE THIS MEDICATION TWO TIMES A DAY SHE WILL NOT BE ABLE TO FUNCTION. VICODIN IS USED FOR THE SOMATIC PAIN AND THE PATIENT WILL RECEIVE 50 TABLETS FOR THE MONTH TO BE USED NEEDED. PATIENT WILL CONTINUE WITH CYMBALTA FOR THE NEUROPATHIC PAIN BEFORE. I WOULD LIKE THE PATIENT TO SPEAK TO HER PRIMARY ABOUT PRESCRIBED THE PROTONIX. MRS. KING DENIES ABUSE OF ANY MEDICATION, DENIES USE OF ILLEGAL SUBSTANCES, AND STATES THAT SHE IS ONLY USING THE MEDICATION FOR PAIN MANAGEMENT. URINE TOXICOLOGY REPORT DONE ON 01/29/16 SHOWS CONSISTENT RESULTS WITH THE PATIENT'S MEDICATION LIST. PATIENT IS A CANDIDATE FOR A SACROILIAC JOINT BLOCK BUT MRS. KING REPORTS THAT INJECTIONS DO NOT WORK AND SHE DOES NOT WANT TO MOVE FORWARD WITH AN INTERVENTION THIS TIME. INSTRUCTIONS WERE GIVEN, QUESTIONS WERE ANSWERED, PATIENT REPORTS UNDERSTANDING AND AGREES WITH THE PLAN. I, HAIDER ELLIOTT, DOCUMENTED THE ABOVE INFORMATION ACTING A SCRIBE FOR DR. GASTELUM. I HAVE REVIEWED THE ABOVE DOCUMENT, WRITTEN BY HAIDER VENTURA AND I VERIFY THAT IT IS ACCURATE. OTHER CHRONIC PAIN REFILL CYCLOBENZAPRINE HCL TABLET, 10 MG, 1 TABLET, ORALLY, BID NEEDED FOR SPASMS AND PAIN MDD2, 30 DAY(S), 60, REFILLS 2 REFILL VICODIN TABLET, 5-300 MG, 1 TABLET NEEDED FOR PAIN, ORALLY (CODED FOR CHRONIC PAIN ), TWICE DAILY NEEDED FOR PAIN MDD2, 90 DAY(S), 150, REFILLS 0 REFILL CYMBALTA CAPSULE DELAYED RELEASE PARTICLES, 30 MG, 1 CAPSULE, ORALLY WITH FOOD, TWICE A DAY FOR PAIN MDD2, 30 DAY(S), 60, REFILLS 2 PROCEDURES PN WORKMANS' COMP OPINION IN YOUR OPINION, WAS THE INCIDENT THAT THE PATIENT DESCRIBED THE COMPETENT MEDICAL CAUSE OF THIS INJURY/ILLNESS? YES ARE THE PATIENT'S COMPLAINTS CONSISTENT WITH HIS/HER HISTORY OF THE INJURY/ILLNESS? YES IS THE PATIENT'S HISTORY OF THE INJURY/ILLNESS CONSISTENT WITH YOUR OBJECTIVE FINDING? YES WHAT IS THE PERCENTAGE OF TEMPORARY IMPAIRMENT? MODERATE TO MARKED = 66.7% IS THE PATIENT WORKING? NO DOCTOR ON SITE: SHELBI ERAZO MD PROCEDURE CODES FA211 ESTABILISHED PATIENT [facility] FACILITY CHARGE G8427 DOC MEDS VERIFIED W/PT OR RE G8730 PAIN ASSESS POS TOOL F/U PLAN DOC DISPOSITION & COMMUNICATION FOLLOW UP 3 WEEKS ELECTRONICALLY SIGNED BY SHELBI GASTELUM MD ON 07/28/2016 AT 08:22 PM EDT DISCLAIMER : THIS IS A VISIT SUMMARY EXTRACTED FROM THE [employer] CHART. IT IS NOT A COPY OF THE [employer] PROGRESS NOTE. MARCIAL
== END ==
LOC: M PAIN 14:40
PROVIDERS: ATTEND Anesthesiology
DX: M96.1 Postlaminectomy syndrome, not elsewhere classified (principal); G89.29 Other chronic pain; M79.1 Myalgia; Z79.891 Long term (current) use of opiate analgesic; Z79.899 Other long term (current) drug therapy

== ENCOUNTER → 2016-09-01 | Outpatient (CLI) | payer OTHER, MEDICARE ==
[~2016-09-01] MED LIST changes: +ATOR1TAB21 PO; +BENT10CA PO; +COUM2.5T17 PO; +CYCL10TA PO; +DIAZ1CON PO; +DIAZ2.5G PO; +DULO30CA PO; +PERC5TAB12 PO; +PROAAER10 INH; +PROM50TA4 PO; +PROT1TAB2 PO; +TOPI200T7 PO; +VICO5TAB16 PO; +XALA0.007 OU
--- NOTE | 2016-09-12 01:22 | ECWPNPC ---
PATIENT NAME: ADY KING : 1955 GENDER: FEMALE VISIT DATE: 09/01/2016 DISCHARGE DATE: 09/01/16 1331 VISIT LOCKED DATE TIME: PHYSICIAN: SHELBI GASTELUM RESOURCE: SHELBI GASTELUM REASON FOR APPOINTMENT 1. W/C LOW BACK PAIN HISTORY OF PRESENT ILLNESS GENERAL: 60 YEAR OLD FEMALE PATIENT WITH HISTORY OF CHRONIC LOW BACK PAIN. PATIENT DESCRIBES THE PAIN SHOOTING WITH A PAIN SCORE OF 8/10 AT TODAY'S VISIT. 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 MRS. KING STATES THAT SHE WAS ALSO INJURED FROM LIFTING NUMEROUS PATIENTS AND IT ENDED UP BEING TOO MUCH FOR HER BACK. PATIENT STATES THAT SHE HAS TRIED PT IN THE PAST AND IT DID NOT REALLY WORK FOR HER. PATIENT STATES THAT SHE HAS HAD ONE BACK SURGERY IN 05/20/1992. CURRENTLY THE PATIENT IS USING VICODIN, PROTONIX, CYCLOBENZAPRINE, AND CYMBALTA WHICH SHE STATES KEEPS HER MOBILE AND FUNCTIONAL. PATIENT REPORTS THAT SOMETIMES AT NIGHT SHE HAS DIFFICULTIES SLEEPING AND STAYING ASLEEP DUE TO THE PAIN. PATIENT DENIES UNEXPLAINABLE WEIGHT LOSS, FEVER, CHILLS, NEW CHANGES ON HER URINARY OR BOWEL CONTROL. CURRENT MEDICATIONS TAKING CYCLOBENZAPRINE HCL 10 MG TABLET 1 TABLET ORALLY BID NEEDED FOR SPASMS AND PAIN MDD2 TAKING VICODIN 5-300 MG TABLET 1 TABLET NEEDED FOR PAIN ORALLY (CODED FOR CHRONIC PAIN ) TWICE DAILY NEEDED FOR PAIN MDD2 TAKING CYMBALTA 30 MG CAPSULE DELAYED RELEASE PARTICLES 1 CAPSULE ORALLY WITH FOOD TWICE A DAY FOR PAIN MDD2 TAKING TOPIRAMATE 50 50MG TABLET 1 TAB ORAL ONCE A DAY TAKING NITROFURANTOIN MACROCRYSTAL 100 MG CAPSULE 1 CAPSULE WITH FOOD OR MILK ORALLY EVERY 6 HRS TAKING ATORVASTATIN CALCIUM 20 MG TABLET 1 TABLET ORALLY ONCE A DAY TAKING XALATAN 0.005 % SOLUTION 1 DROP INTO AFFECTED EYE IN THE EVENING OPHTHALMIC ONCE A DAY TAKING ALBUTEROL SULFATE HFA 108 (90 BASE) MCG/ACT AEROSOL SOLUTION 2 PUFFS NEEDED INHALATION EVERY 4 HRS TAKING ADVAIR DISKUS 100-50 MCG/DOSE MISCELLANEOUS 1 INHALATION EVERY 12 HRS TAKING PROTONIX 40 MG TABLET DELAYED RELEASE DIRECTED ORALLY BID FOR STOMACH PAIN MDD2 TAKING DIAZEPAM 5 MG TABLET 2 TABLETS IN THE MORNING AND 1.5 TABLETS IN THE EVENING NEEDED FOR ANXIETY ORALLY DAILY MDD#3.5 NOT-TAKING SULFASALAZINE 500 MG TABLET 1 TABLET ORALLY TWO TIMES A DAY NOT-TAKING DICYCLOMINE HCL 20 MG TABLET 1/2 TAB ORALLY FOUR TIMES DAILY NEEDED PAST MEDICAL HISTORY SPONDYLOLITHESIS FIBROMYALGIA ASTHMA CHRONIC CYSTITIS KIDNEY STONES DEPRESSION LEFT INTERNAL CAROTID ANEURYSM - S/P COIL/STENT 01/2012; DR. HERNANDEZ IN [place] [facility] - DR. JACKSON ANXIETY DIVERTICULOSIS REFLUX ESOPHAGITIS CHEMICAL GASTRITIS VITAL SIGNS WT 202.0 LBS, HT 66", BMI 32.60 INDEX, BP 131/93 R ARM, REPEAT BP 143/87 L ARM, HR 106 /MIN, RR 16 /MIN, TEMP 97.7 F, OXYGEN SAT % 96%, NA INITIALS TL 1254. EXAMINATION GENERAL: PATIENT IS ALERT O X 3 AND COOPERATIVE. PATIENT AMBULATES SLOWLY WITH AN ANTALGIC GAIT. PATIENT USING CRUTCHES TODAY DUE TO KNEE PAIN. PATIENT'S RIGHT LEG IS WEAKER AT FLEXION AND EXTENSION COMPARED TO THE LEFT LEG. PATIENT HAS TENDERNESS IN THE SACROILIAC PARASPINAL MUSCLE GROUP. ASSESSMENTS POSTLAMINECTOMY SYNDROME, NOT ELSEWHERE CLASSIFIED - M96.1 (PRIMARY) OTHER CHRONIC PAIN - G89.29 MYALGIA - M79.1 TREATMENT POSTLAMINECTOMY SYNDROME, NOT ELSEWHERE CLASSIFIED NOTES: WE DISCUSSED SEVERAL ISSUES WITH MRS. KING PAIN MANAGEMENT CASE. AT THIS TIME THE PATIENT WILL CONTINUE TO USE THE SAME MEDICATION REGIME BEFORE. PATIENT IS USING THE CYCLOBENZAPRINE FOR THE MUSCLE SPASMS, PATIENT STATES IF SHE DOES NOT USE THIS MEDICATION TWO TIMES A DAY SHE WILL NOT BE ABLE TO FUNCTION. VICODIN IS USED FOR THE SOMATIC PAIN AND CYMBALTA FOR THE NEUROPATHIC PAIN. MRS. KING DENIES ABUSE OF ANY MEDICATION, DENIES USE OF ILLEGAL SUBSTANCES, AND STATES THAT SHE IS ONLY USING THE MEDICATION FOR PAIN MANAGEMENT. PATIENT BROUGHT MEDICATIONS TO TODAY'S VISIT. URINE TOXICOLOGY REPORT DONE ON 01/29/16 SHOWS CONSISTENT RESULTS WITH THE PATIENT'S MEDICATION LIST. PATIENT GAVE INSUFFICIENT AMOUNT FOR A URINE SAMPLE TODAY. PATIENT IS A CANDIDATE FOR A SACROILIAC JOINT BLOCK BUT MRS. KING REPORTS THAT INJECTIONS DO NOT WORK AND SHE DOES NOT WANT TO MOVE FORWARD WITH AN INTERVENTION THIS TIME. INSTRUCTIONS WERE GIVEN, QUESTIONS WERE ANSWERED, PATIENT REPORTS UNDERSTANDING AND AGREES WITH THE PLAN. HAIDER Miller, DOCUMENTED THE ABOVE INFORMATION ACTING A SCRIBE FOR DR. GASTELUM. I HAVE REVIEWED THE ABOVE DOCUMENT, WRITTEN BY HAIDER VENTURA AND I VERIFY THAT IT IS ACCURATE. OTHER CHRONIC PAIN REFILL CYCLOBENZAPRINE HCL TABLET, 10 MG, 1 TABLET, ORALLY, BID NEEDED FOR SPASMS AND PAIN MDD2, 30 DAY(S), 50, REFILLS 2 REFILL VICODIN TABLET, 5-300 MG, 1 TABLET NEEDED FOR PAIN, ORALLY (CODE D FOR CHRONIC PAIN ), TWICE DAILY NEEDED FOR PAIN MDD2, 90 DAY(S), 150, REFILLS 0 REFILL CYMBALTA CAPSULE DELAYED RELEASE PARTICLES, 30 MG, 1 CAPSULE, ORALLY WITH FOOD, TWICE A DAY FOR PAIN MDD2, 30 DAY(S), 60, REFILLS 2 OTHERS REFILL PROTONIX TABLET DELAYED RELEASE, 40 MG, DIRECTED, ORALLY, BID FOR STOMACH PAIN MDD2, 30 DAY(S), 60, REFILLS 2 PROCEDURES PN WORKMANS' COMP OPINION IN YOUR OPINION, WAS THE INCIDENT THAT THE PATIENT DESCRIBED THE COMPETENT MEDICAL CAUSE OF THIS INJURY/ILLNESS? YES ARE THE PATIENT'S COMPLAINTS CONSISTENT WITH HIS/HER HISTORY OF THE INJURY/ILLNESS? YES IS THE PATIENT'S HISTORY OF THE INJURY/ILLNESS CONSISTENT WITH YOUR OBJECTIVE FINDING? YES WHAT IS THE PERCENTAGE OF TEMPORARY IMPAIRMENT? MODERATE TO MARKED = 66.7% IS THE PATIENT WORKING? NO DOCTOR ON SITE: SHELBI ERAZO MD PROCEDURE CODES FA211 ESTABILISHED PATIENT [facility] FACILITY CHARGE G8427 DOC MEDS VERIFIED W/PT OR RE G8730 PAIN ASSESS POS TOOL F/U PLAN DOC DISPOSITION & COMMUNICATION FOLLOW UP 6 WEEKS ELECTRONICALLY SIGNED BY SHELBI GASTELUM MD ON 09/11/2016 AT 12:20 PM EDT DISCLAIMER : THIS IS A VISIT SUMMARY EXTRACTED FROM THE [facility]ellar CHART. IT IS NOT A COPY OF THE [facility]ellar PROGRESS NOTE. MARCIAL
== END ==
LOC: M PAIN 13:00
PROVIDERS: ATTEND Anesthesiology
DX: M54.5 Low back pain (principal); G89.29 Other chronic pain; M96.1 Postlaminectomy syndrome, not elsewhere classified; M79.1 Myalgia; Z79.891 Long term (current) use of opiate analgesic; Z79.899 Other long term (current) drug therapy

== ENCOUNTER → 2016-10-03 | Outpatient (CLI) | payer MEDICARE ==
[2016-10-03 11:16] LABS: INR 0.94
[2016-10-03 11:20] LABS: MEAN CORPUSCULAR HEMOGLOBIN 28.1 pg (27.0-33.0); MEAN CORPUSCULAR HGB CONC 32.7 g/dl (32.0-36.5); MEAN CORPUSCULAR VOLUME 86.1 fl (80.0-96.0); RED CELL DISTRIBUTION WIDTH 14.6 % (11.5-14.5); WHITE BLOOD COUNT 6.6 K/mm3 (4.0-10.0)
[2016-10-03 11:30] LABS: ALBUMIN 3.8 GM/DL (3.2-5.2); ALBUMIN/GLOBULIN RATIO 1.15 (1.00-1.93); ALKALINE PHOSPHATASE 161 U/L (45-117); ALT/SGPT 26 U/L (12-78); ANION GAP 4 MEQ/L (8-16); AST/SGOT 15 U/L (15-37); BILIRUBIN,TOTAL 0.5 MG/DL (0.2-1.0); BLOOD UREA NITROGEN 14 MG/DL (7-18); CALCIUM LEVEL 9.1 MG/DL (8.8-10.2); CARBON DIOXIDE LEVEL 27 MEQ/L (21-32); CHLORIDE LEVEL 111 MEQ/L (98-107); CREATININE FOR GFR 0.74 MG/DL (0.55-1.02); GLOMERULAR FILTRATION RATE > 60.0 (>45); GLUCOSE, FASTING 88 MG/DL (80-110); POTASSIUM SERUM 4.3 MEQ/L (3.5-5.1); SODIUM LEVEL 142 MEQ/L (136-145); TOTAL PROTEIN 7.1 GM/DL (6.4-8.2)
--- NOTE | 2016-10-03 13:28 | REP ---
Chest two views HISTORY: Asthma Comparison: 07/16/2015 The lungs are clear. The heart is normal in size. The pulmonary vasculature is normal in appearance. The bony structure is intact. IMPRESSION: No acute disease. Signed by Yuan De MD 10/03/2016 11:18 A
== END ==
LOC: M ADMPAT 08:37
PROVIDERS: ATTEND Orthopaedic Surgery
DX: Z01.818 Encounter for other preprocedural examination (principal); M13.861 Other specified arthritis, right knee; Z79.899 Other long term (current) drug therapy

== ENCOUNTER → 2016-10-07 | Outpatient (CLI) | payer OTHER, MEDICARE ==
--- NOTE | 2016-10-23 01:27 | ECWPNPC ---
PATIENT NAME: ADY KING : 1955 GENDER: FEMALE VISIT DATE: 10/07/2016 DISCHARGE DATE: 10/07/16 1550 VISIT LOCKED DATE TIME: PHYSICIAN: SHELBI GASTELUM RESOURCE: SHELBI GASTELUM REASON FOR APPOINTMENT 1. LOW BACK PAIN HISTORY OF PRESENT ILLNESS HISTORY OF PRESENT ILLNESS: PAIN THE PATIENT DESCRIBES THE PAIN... 60 YEAR OLD FEMALE PATIENT WITH HISTORY OF CHRONIC LOW BACK PAIN. PATIENT DESCRIBES THE PAIN SHOOTING WITH A PAIN SCORE OF 8/10 AT TODAY'S VISIT. 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 MRS. KING STATES THAT SHE WAS ALSO INJURED FROM LIFTING NUMEROUS PATIENTS AND IT ENDED UP BEING TOO MUCH FOR HER BACK. PATIENT STATES THAT SHE HAS TRIED PT IN THE PAST AND IT DID NOT REALLY WORK FOR HER. PATIENT STATES THAT SHE HAS HAD ONE BACK SURGERY IN 05/20/1992. CURRENTLY THE PATIENT IS USING VICODIN, PROTONIX, CYCLOBENZAPRINE, AND CYMBALTA WHICH SHE STATES KEEPS HER MOBILE AND FUNCTIONAL. PATIENT HAS TRIED TO REDUCE THE AMOUNT OF CYCLOBENZAPRINE AND REPORTS NOT BEING ABLE TO FUNCTIONAL WHEN DOING SO. PATIENT DENIES UNEXPLAINABLE WEIGHT LOSS, FEVER, CHILLS, NEW CHANGES ON HER URINARY OR BOWEL CONTROL. FALL RISK SCREENING: SCREENING :NO FALLS IN THE PAST YEAR CURRENT MEDICATIONS TAKING TOPIRAMATE 50 50MG TABLET 1 TAB ORAL ONCE A DAY TAKING XALATAN 0.005 % SOLUTION 1 DROP INTO AFFECTED EYE IN THE EVENING OPHTHALMIC ONCE A DAY TAKING ALBUTEROL SULFATE HFA 108 (90 BASE) MCG/ACT AEROSOL SOLUTION 2 PUFFS NEEDED INHALATION EVERY 4 HRS TAKING ADVAIR DISKUS 100-50 MCG/DOSE MISCELLANEOUS 1 INHALATION EVERY 12 HRS TAKING PROTONIX 40 MG TABLET DELAYED RELEASE DIRECTED ORALLY BID FOR STOMACH PAIN MDD2 TAKING CYCLOBENZAPRINE HCL 10 MG TABLET 1 TABLET ORALLY BID NEEDED FOR SPASMS AND PAIN MDD2 TAKING VICODIN 5-300 MG TABLET 1 TABLET NEEDED FOR PAIN ORALLY (CODE D FOR CHRONIC PAIN ) TWICE DAILY NEEDED FOR PAIN MDD2 TAKING CYMBALTA 30 MG CAPSULE DELAYED RELEASE PARTICLES 1 CAPSULE ORALLY WITH FOOD TWICE A DAY FOR PAIN MDD2 TAKING DIAZEPAM 5 MG TABLET 2 TABLETS IN THE MORNING AND 1.5 TABLETS IN THE EVENING NEEDED FOR ANXIETY ORALLY TWICE DAILY DIRECTED MDD#3.5 TAKING NITROFURANTOIN MACROCRYSTAL 100 MG CAPSULE 1 CAPSULE WITH FOOD OR MILK ORALLY EVERY 6 HRS TAKING ATORVASTATIN CALCIUM 20 MG TABLET 1 TABLET ORALLY ONCE A DAY NOT-TAKING SULFASALAZINE 500 MG TABLET 1 TABLET ORALLY TWO TIMES A DAY NOT-TAKING DICYCLOMINE HCL 20 MG TABLET 1/2 TAB ORALLY FOUR TIMES DAILY NEEDED PAST MEDICAL HISTORY SPONDYLOLITHESIS FIBROMYALGIA ASTHMA CHRONIC CYSTITIS KIDNEY STONES DEPRESSION LEFT INTERNAL CAROTID ANEURYSM - S/P COIL/STENT 01/2012; DR. HERNANDEZ IN [place] [facility] - DR. JACKSON ANXIETY DIVERTICULOSIS REFLUX ESOPHAGITIS CHEMICAL GASTRITIS ALLERGIES N.K.D.A. REVIEW OF SYSTEMS REVIEWED BY: PROVIDER: SHELBI GASTELUM MD . CONSTITUTIONAL: ANY CHANGE IN YOUR MEDICAL CONDITION? NO . CHILLS NO . FEVER NO . INFECTION: DO YOU HAVE NEW INFECTIONS? NO . DO YOU HAVE HISTORY OF MRSA? NO . MUSCULOSKELETAL: ANY NEW PATTERNS OF PAIN OR NUMBNESS? NO . GASTROENTEROLOGY: ANY NEW CHANGE IN BOWEL CONTROL? NO . GENITOURINARY: ANY NEW CHANGE IN BLADDER CONTROL? NO . IS THERE A CHANCE YOU COULD BE ? NO . HEMATOLOGY/LYMPH: DO YOU TAKE ANY BLOOD THINNERS? (FOR EXAMPLE- COUMADIN, PLAVIX, AGGRENOX, PLATEL, PRADAXA, OR XARELTO) NO . WHEN WAS YOUR LAST DOSE? DATE: TIME: . NEUROLOGY: HAVE YOU FALLEN IN THE PAST 6 MONTHS? YES . ANY NEW EXTREMITY NUMBNESS OR WEAKNESS? NO . CARDIOLOGY: DO YOU HAVE A PACEMAKER OR DEFIBRILLATOR? NO . RESPIRATORY: HAVE YOU BEEN SICK IN THE PAST WEEK? NO . FEVER NO . FLU LIKE SYMPTOMS? NO . COUGH NO . INTEGUMENTARY: DO YOU HAVE ANY RASHES OR OPEN SORES? NO . ALLERGIC/IMMUNO: ARE YOU ALLERGIC TO SHELLFISH OR IV DYE? NO . ANY NEW ALLERGIES? NO . PSYCHIATRIC: DO YOU HAVE THOUGHTS OF HURTING YOURSELF OR SOMEONE ELSE? NO . ARE YOU ABUSED, NEGLECTED, OR IN AN UNSAFE ENVIRONMENT? NO . ENDOCRINOLOGY: ARE YOU DIABETIC? NO . OTHER: DO YOU NEED ANY PRESCRIPTIONS? YES . IF YES, PLEASE LIST: ____ . ANY NEW PROBLEMS WITH YOUR MEDICATIONS? NO . WHEN DID YOU LAST EAT? ____ . WHEN DID YOU LAST DRINK? ____ . WHAT DID YOU LAST DRINK? ____ . NAME OF PERSON DRIVING YOU HOME? ____ . DO YOU HAVE ANY OTHER QUESTIONS OR CONCERNS YES, HAVING RIGHT KNEE SURGERY OCTOBER 09 AND WILL BE HOMEBOUND FOR A BIT . VITAL SIGNS WT 203 LBS, HT 66", BMI 32.76 INDEX, BP 153/80 MM HG, HR 91 /MIN, RR 18 /MIN, TEMP 98.2 F, OXYGEN SAT % 97%, NA INITIALS SC 14:27, REVIEWED BY: NL. EXAMINATION : PATIENT IS ALERT O X 3 AND COOPERATIVE. PATIENT AMBULATES SLOWLY WITH AN ANTALGIC GAIT. PATIENT USING CRUTCHES TODAY DUE TO KNEE PAIN. PATIENT'S RIGHT LEG IS WEAKER AT FLEXION AND EXTENSION COMPARED TO THE LEFT LEG. PATIENT HAS TENDERNESS IN THE SACROILIAC PARASPINAL MUSCLE GROUP. ASSESSMENTS POSTLAMINECTOMY SYNDROME, NOT ELSEWHERE CLASSIFIED - M96.1 (PRIMARY) MYALGIA - M79.1 TREATMENT POSTLAMINECTOMY SYNDROME, NOT ELSEWHERE CLASSIFIED NOTES: WE DISCUSSED SEVERAL ISSUES WITH MRS. KING PAIN MANAGEMENT CASE. AT THIS TIME THE PATIENT WILL CONTINUE TO USE THE SAME MEDICATION REGIME BEFORE. PATIENT IS USING THE CYCLOBENZAPRINE FOR THE MUSCLE SPASMS BUT WILL TRY TO WEAN FROM THE MEDICATION. VICODIN IS USED FOR THE SOMATIC PAIN AND CYMBALTA FOR THE NEUROPATHIC PAIN. MRS. KING DENIES ABUSE OF ANY MEDICATION, DENIES USE OF ILLEGAL SUBSTANCES, AND STATES THAT SHE IS ONLY USING THE MEDICATION FOR PAIN MANAGEMENT. PATIENT BROUGHT MEDICATIONS TO TODAY'S VISIT. URINE TOXICOLOGY REPORT DONE ON 01/29/16 SHOWS CONSISTENT RESULTS WITH THE PATIENT'S MEDICATION LIST. PATIENT WILL PERFORM A URINE TOXICOLOGY REPORT TODAY. PATIENT WILL TALK TO HER PRIMARY ABOUT USING THE PROTONIX. PATIENT REPORTS HAVING A KNEE SURGERY IN THE FUTURE SO WE WILL NOT HOLD ANY INTERVENTIONS AT THIS TIME. PATIENT WILL RETURN TO THE CLINIC IN 10 WEEKS. INSTRUCTIONS WERE GIVEN, QUESTIONS WERE ANSWERED, PATIENT REPORTS UNDERSTANDING AND AGREES WITH THE PLAN. I, HAIDER ELLIOTT, DOCUMENTED THE ABOVE INFORMATION ACTING A SCRIBE FOR DR. GASTELUM. I HAVE REVIEWED THE ABOVE DOCUMENT, WRITTEN BY HAIDER VENTURA AND I VERIFY THAT IT IS ACCURATE. OTHERS REFILL PROTONIX TABLET DELAYED RELEASE, 40 MG, DIRECTED, ORALLY, BID FOR STOMACH PAIN MDD2, 30 DAY(S), 60, REFILLS 2 REFILL CYMBALTA CAPSULE DELAYED RELEASE PARTICLES, 30 MG, 1 CAPSULE, ORALLY WITH FOOD, TWICE A DAY FOR PAIN MDD2, 30 DAY(S), 60, REFILLS 2 REFILL VICODIN TABLET, 5-300 MG, 1 TABLET NEEDED FOR PAIN, ORALLY (CODE D FOR CHRONIC PAIN ), TWICE DAILY NEEDED FOR PAIN MDD2, 90 DAY(S), 150, REFILLS 0 REFILL CYCLOBENZAPRINE HCL TABLET, 10 MG, 1 TABLET, ORALLY, BID NEEDED FOR SPASMS AND PAIN MDD2, 30 DAY(S), 50, REFILLS 0 PROCEDURES PN WORKMANS' COMP OPINION IN YOUR OPINION, WAS THE INCIDENT THAT THE PATIENT DESCRIBED THE COMPETENT MEDICAL CAUSE OF THIS INJURY/ILLNESS? YES ARE THE PATIENT'S COMPLAINTS CONSISTENT WITH HIS/HER HISTORY OF THE INJURY/ILLNESS? YES IS THE PATIENT'S HISTORY OF THE INJURY/ILLNESS CONSISTENT WITH YOUR OBJECTIVE FINDING? YES WHAT IS THE PERCENTAGE OF TEMPORARY IMPAIRMENT? MODERATE TO MARKED = 66.7% IS THE PATIENT WORKING? NO DOCTOR ON SITE: SHELBI ERAZO MD PROCEDURE CODES FA211 ESTABILISHED PATIENT [facility] FACILITY CHARGE G8427 DOC MEDS VERIFIED W/PT OR RE G8730 PAIN ASSESS POS TOOL F/U PLAN DOC DISPOSITION & COMMUNICATION FOLLOW UP 3 WEEKS ELECTRONICALLY SIGNED BY SHELBI GASTELUM MD ON 10/20/2016 AT 11:40 AM EDT DISCLAIMER : THIS IS A VISIT SUMMARY EXTRACTED FROM THE [employer] CHART. IT IS NOT A COPY OF THE [employer] PROGRESS NOTE. MARCIAL
== END ==
LOC: M PAIN 14:20
PROVIDERS: ATTEND Anesthesiology
DX: M96.1 Postlaminectomy syndrome, not elsewhere classified (principal); M79.1 Myalgia; G89.29 Other chronic pain; Z79.899 Other long term (current) drug therapy

== ENCOUNTER 2016-10-13 06:40 | Inpatient (IN) | payer MEDICARE ==
[2016-10-03 09:14] VITALS: BP 128/82
--- NOTE | 2016-10-10 09:52 | HPE ---
DATE OF ADMISSION: 10/13/2016 ATTENDING PHYSICIAN: Dr. Heraclio Bazan CHIEF COMPLAINT: Right knee pain and stiffness. HISTORY: This is a pleasant, 61-year-old female patient with progressively worsening right knee pain and stiffness. She has failed to improve conservative management. She has elected for surgery for continued symptoms. She has consented for right total knee arthroplasty. X-rays are notable for tricompartmental degenerative changes of the right knee. Medical optimization, Dr. Kitchen, not present for review today. ALLERGIES: NO KNOWN DRUG ALLERGIES. CURRENT MEDICATIONS: - Vicodin 5/500 1-2 as needed for pain - Cymbalta 60 mg 1 tablet once per day - atorvastatin 20 mg 1 tablet once per day - Macrodantin 100 mg 1 tablet once per day - Protonix 40 mg 1 tablet once per day - valium 5 mg 2 tablets in the morning and 1-1/2 tablets in the evening - Flexeril 10 mg 1 tablet once per day - Advair Diskus 100/50 mcg 1 puff twice a day, - topiramate 50 mg 1 tablet twice per day as needed - dicyclomine 10 mg 1 tablet every 6 hours as needed - albuterol rescue inhaler - eye drops Xalatan as directed Medical history includes elevated cholesterol, fibromyalgia, chronic cystitis, obesity, gastric reflux disease, gastritis, anxiety, hyperlipidemia, chronic back pain with sciatica, chronic pain, paresthesia in both hands, 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 Surgery includes knee scope, appendectomy, right ankle surgery, and lumbar spine surgery. FAMILY HISTORY: Noncontributory. SOCIAL HISTORY: She does not smoke. She does not use alcohol. REVIEW OF SYSTEMS: Denies fever or chills. Denies chest pain, shortness breath or cough. Denies difficulty breathing. Denies abdominal pain. Denies nausea or vomiting. Notes persistent pain in her right knee with weightbearing activities and activities of daily living. PHYSICAL EXAMINATION: Today reveals a well-nourished, well-developed, alert female patient. She walks with a slight limping gait favoring the right side. Height 5 foot 6, weight 207 pounds. Temperature 98.6, blood pressure 148/88, pulse 76, respirations 12. Exam of the right knee does reveal the skin to be intact. No erythema, edema or ecchymosis. Tenderness mainly over the medial joint line with some suprapatellar tenderness as well. The calf is soft, nontender to palpation. She is able to appreciate light touch on examination today. Neck is supple without adenopathy or jugular venous distention (JVD). Lungs are clear to auscultation without rales or wheeze. Heart: Regular rate and rhythm. Abdomen: Bowel sounds are present. IMPRESSION: Symptomatic osteoarthritis of the right knee. LABORATORY DATA: Her nasal and sinus culture were positive for Staphylococcus aureus. She was treated per the protocol. Prothrombin time 12.6, INR 0.94. Glucose 88. BUN 14, creatinine 0.74. Sodium 142, potassium 4.3, sedimentation rate is 7. WBC count 6.6, RBC count of 5.1, hemoglobin 14.4, hematocrit 44.0. Urinalysis within normal limits. Urine culture: No clinically significant growth. Chest x-ray: No acute cardiopulmonary process noted. EKG is not present for review. Medical optimization is not present for review today. PLAN: She has consented for a right total knee arthroplasty by Dr. Bazan.
[2016-10-13] VITALS (10 sets, daily range): BP systolic 125–149; BP diastolic 62–90; O2SAT 94–96
[~2016-10-13] VITALS: Ht 167.6 cm; Wt 93.0 kg
[~2016-10-13 06:40] MED LIST changes: -COUM2.5T17 PO; -PERC5TAB12 PO
[2016-10-13] MEDS ORDERED: ACETAMINOPHEN 500 MG TAB PO ONE (07:00)
[2016-10-13] MEDS ORDERED: LR 1,000 ML IV ONE (07:00)
[2016-10-13] MEDS ORDERED: LR 1,000 ML IV SCH ×2 (07:00→11:30)
[2016-10-13] MEDS ORDERED: ceFAZolin 1GM INJ (J0690) As Ordered ONE (07:33)
[2016-10-13] MEDS ORDERED: BUPIVACAINE LIPOSOME/PF 1.3% 20 ML VIAL (13.3MG/ML)(EXPAREL) As Ordered ONE ×2 (07:34→10:10)
[2016-10-13] MEDS ORDERED: TRANEXAMIC ACID 100 MG/ML 10ML VIAL As Ordered ONE (07:34)
[2016-10-13] MEDS ORDERED: MIDAZOLAM INJ 2 MG/2 ML VIAL (J2250) As Ordered ONE ×3 (08:04→10:16)
[2016-10-13] MEDS ORDERED: fentaNYL 100 MCG/2 ML INJECTION (J3010) As Ordered ONE ×2 (08:04→10:58)
[2016-10-13] MEDS ORDERED: EPINEPHrine INJ 1 MG/ML 1ML AMP As Ordered ONE (08:51)
[2016-10-13] MEDS ORDERED: MIDAZOLAM INJ 2 MG/2 ML VIAL (J2250) IV ONE (09:15)
[2016-10-13] MEDS ORDERED: fentaNYL 100 MCG/2 ML INJECTION (J3010) IV ONE (09:15)
[2016-10-13] MEDS ORDERED: PROPOFOL 500 MG/50 ML VIAL As Ordered ONE (09:34)
[2016-10-13] MEDS ORDERED: ONDANSETRON 4MG/2ML VIAL (J2405) As Ordered ONE (10:03)
[2016-10-13] MEDS ORDERED: METOCLOPRAMIDE INJ 10MG/2ML VIAL (J2765) As Ordered ONE (10:03)
[2016-10-13] MEDS ORDERED: MORPHINE 1MG/ML IN 0.9% NACL 100ML IV BAG As Ordered ONE (10:56)
[2016-10-13] MEDS ORDERED: MORPHINE 1MG/ML IN 0.9% NACL 100ML IV BAG IV PRN (11:30)
[2016-10-13] MEDS ORDERED: EPIDURAL/PCA KEYS XX PRN (11:30)
[2016-10-13] MEDS ORDERED: ONDANSETRON 4MG/2ML VIAL (J2405) IV PRN ×2 (11:30)
[2016-10-13] MEDS ORDERED: NALBUPHINE HCL 10 MG/ML AMP (J2300) IV PRN (11:30)
[2016-10-13] MEDS ORDERED: diphenhydrAMINE INJ 50MG/ML VIAL (J1200) IV PRN (11:30)
[2016-10-13] MEDS ORDERED: NALOXONE INJ 0.4 MG/1 ML VIAL (J2310) IV PRN (11:30)
[2016-10-13] MEDS ORDERED: fentaNYL 100 MCG/2 ML INJECTION (J3010) IV PRN (11:30)
[2016-10-13] MEDS: LR 1,000 ML IV SCH (12:00)
[2016-10-13] MEDS ORDERED: FLEET ENEMA PR PRN (12:00)
[2016-10-13] MEDS ORDERED: ACETAMINOPHEN TAB 650MG DOSE (2X325MG) PO PRN (12:00)
[2016-10-13] MEDS ORDERED: ROPIvacaine 0.5% 30 ML INJECTION (J2795) ONE (13:34)
[2016-10-13] MEDS ORDERED: EPINEPHrine 1MG/10ML SYRINGE 1.5IN ONE (13:34)
[2016-10-13] MEDS ORDERED: dexameTHASONE 10 MG/1 ML VIAL PRES.FREE (J1100) ONE (13:34)
[2016-10-13] MEDS ORDERED: DICYCLOMINE 10 MG CAP PO PRN (15:45)
[2016-10-13] MEDS ORDERED: ALBUTEROL 90 MCG/ACT 8GM HFA INHALER INH PRN (15:45)
[2016-10-13] MEDS ORDERED: CYCLOBENZAPRINE 10 MG TAB PO PRN (15:45)
[2016-10-13] MEDS ORDERED: WARFARIN SOD 5 MG TAB PO ONE (17:00)
[2016-10-13] MEDS: ADVAIR HFA 45/21MCG INHALER INH SCH (19:45)
[2016-10-13] MEDS: DULoxetine 30 MG CAP (CYMBALTA) PO SCH (20:56)
[2016-10-13] MEDS: diazePAM 5 MG TAB PO SCH (20:56)
[2016-10-13] MEDS: LATANOPROST 0.005% OPHTH SOLN 2.5 ML OU SCH (20:57)
[2016-10-13] MEDS: DORZOLAMIDE 2% OPHTH SOLN 10 ML BTL OU SCH (20:57)
[2016-10-13] MEDS: TOPIRAMATE (TopAMAX) 25 MG TAB PO SCH (20:57)
[2016-10-13] MEDS: ATORVASTATIN 20 MG TAB PO SCH (20:57)
[2016-10-13] MEDS: PANTOPRAZOLE 40MG TAB (PROTONIX) PO SCH (20:57)
[2016-10-13] MEDS ORDERED: DIAZEPAM 2.5 MG RECTAL GEL (DIASTAT) XX SCH (21:00)
[2016-10-14] MEDS: LR 1,000 ML IV SCH (00:48)
[2016-10-14 02:00] VITALS: BP 130/66
[2016-10-14 06:00] VITALS: BP 123/62
--- NOTE | 2016-10-14 06:58 | IPN ---
DATE: 10/13/2016 CONSULTATION FOR: Dr. Contreras Bazan. HISTORY: The patient was admitted for right total knee replacement on today. The surgery has gone well. She is comfortable postoperatively. No cough. No wheezing, no exacerbation of underlying asthma. Her chronic medical problems include asthma, fibromyalgia, chronic cystitis. She had a left internal carotid aneurysm and had a coil placed and a stent placed in January [address] Mcdonald in [place]. She has glaucoma and chronic anxiety, history of acid reflux and gastritis associated with non-steroidal anti-inflammatory drug use medications. MEDICATIONS BEFORE ADMISSION: Include: - topiramate 50 mg daily - Xalatan 0.005% drops into both eyes daily - dorzolamide 2% one drop three times daily both eyes - artificial tears that she uses three times daily - albuterol HFA two puffs every 4 hours as needed - Advair discus 100/50 one inhalation every 12 - diazepam 5 mg two tablets in the morning and 1-1/2 tablets in the evening as needed anxiety - nitrofurantoin microcrystals 100 mg daily in the evening - atorvastatin 20 mg daily - Protonix 40 mg daily - Cymbalta 30 mg by mouth twice daily - hydrocodone/acetaminophen 5/300 one tablet by mouth twice daily for pain - cyclobenzaprine 10 mg twice daily for pain or spasms REVIEW OF SYSTEMS: She is not having headache, dizziness, trouble swallowing or nausea at this time. No abdominal pain. No cough, no shortness of breath, nausea or other symptoms. No gastrointestinal (GI), genitourinary () symptoms reported at this time. No numbness or tingling. Vital signs: Blood pressure 115/57, pulse 80, respiratory rate 18, oxygen saturation 98%. Note that her STOP-BANG screening test was scored 2 before surgery. EXAMINATION: She is alert, pleasant, oriented. Extraocular movements are normal. Speech is clear. Faces symmetric. Oropharynx unremarkable. No neck masses noted. Lungs: Clear to auscultation. Heart: Regular rhythm without murmurs, gallops or rubs. Abdomen: Soft. No mass, guarding, rebound or tenderness. Extremities: No edema. Pulses are symmetrical. Neuro: She is alert and oriented. Moves all extremities normally. EKG showed incomplete intraventricular conduction delay with left axis deviation, possible left anterior hemiblock. ASSESSMENT: Patient with chronic problems related to fibromyalgia and pain and anxiety, history of recurrent urinary tract infection (UTI) and osteoarthritis involving the left knee who is status post total knee replacement. She seems to doing well at this time. Her usual medications for inhalant therapies will be resumed. She is on a significant dose of diazepam which she has been taking chronically she says. This will be a long-term concern for safety with respect to falls, etc., but at this point seems most prudent to continue rather than precipitate acute withdrawal.
[2016-10-14 07:07] LABS: MEAN CORPUSCULAR HEMOGLOBIN 28.5 pg (27.0-33.0); MEAN CORPUSCULAR HGB CONC 32.4 g/dl (32.0-36.5); MEAN CORPUSCULAR VOLUME 88.1 fl (80.0-96.0); WHITE BLOOD COUNT 10.3 K/mm3 (4.0-10.0)
[2016-10-14 07:10] LABS: INR 1.08
[2016-10-14 07:32] LABS: ANION GAP 7 MEQ/L (8-16); BLOOD UREA NITROGEN 15 MG/DL (7-18); CALCIUM LEVEL 8.5 MG/DL (8.8-10.2); CARBON DIOXIDE LEVEL 27 MEQ/L (21-32); CHLORIDE LEVEL 104 MEQ/L (98-107); CREATININE FOR GFR 0.76 MG/DL (0.55-1.02); GLOMERULAR FILTRATION RATE > 60.0 (>45); GLUCOSE, FASTING 111 MG/DL (80-110); POTASSIUM SERUM 3.7 MEQ/L (3.5-5.1); SODIUM LEVEL 138 MEQ/L (136-145)
[2016-10-14] MEDS: ADVAIR HFA 45/21MCG INHALER INH SCH ×2 (07:55→19:50)
--- NOTE | 2016-10-14 08:54 | REP ---
The right knee two views postoperative study: There is a total knee arthroplasty. The components are tightly applied and in satisfactory positions alignment both projections. Skin rich are incidentally identified. Signed by Patrice Topete MD 10/14/2016 08:46 A
--- NOTE | 2016-10-14 09:43 | IPNPDOC ---
Subjective Date Seen The patient was seen on 10/14/16. Subjective Chief Complaint/HPI The patient is a 61-year-old female admitted with a reason for visit of Right Knee Arthritis. Events since last encounter No complaints. Pain controlled. Eating. No BM yet Constitutional: Denies: Chills, Fever Pulmonary: Denies: Dyspnea, Cough Cardiovascular: Denies: Chest Pain, Palpitations Gastrointestinal: Denies: Nausea, Vomiting, Abdominal Pain, Diarrhea, Constipation Objective Physical Examination General Exam: Positive: Alert Chest Exam: Positive: Clear to auscultation, Normal air movement Heart Exam: Positive: Rate Normal, Regular Rhythm, Negative: Murmurs Abdomen Exam: Positive: Normal bowel sounds, Soft, Negative: Tenderness Extremity Exam: Negative: Edema Assessment /Plan Problems (1) Chronic pain Status: Chronic Response to Treatment: Stable Problem Text: Normally on Vicodin, Cymbalta and Topiramate for chronic pain related to Fibromyalgia and Spondylolisthesis (2) Anxiety Status: Chronic Response to Treatment: Stable Problem Text: Uses Valium q hs chronically - continue this to prevent withdrawal (3) Asthma Status: Chronic Response to Treatment: Stable (4) Chronic cystitis Status: Chronic Response to Treatment: Stable Problem Text: on Nitrofurantoin chronically (5) GERD (gastroesophageal reflux disease) Status: Chronic Response to Treatment: Stable (6) Fibromyalgia Plan/VTE VTE Prophylaxis Ordered?: Yes (coumadin per ortho) Plan/Urinary Catheter Reason for insertion/continuin: Acute obstruct/retention VS, I&O, 24H, Fishbone Vital Signs/I&O Vital Signs Date Time Temp Pulse Resp B/P (MAP) Pulse Ox O2 Delivery O2 Flow Rate FiO2 10/14/16 06:00 97.2 95 18 123/62 (82) 98 Room Air 10/13/16 20:55 2.0 I&O- Last 24 Hours up to 6 AM 10/14/16 06:00 Intake Total 3620 ml Output Total 4375 ml Balance -755 ml Laboratory Data 24H LABS Laboratory Tests 2 10/14/16 06:54: Prothrombin Time 14.2, Prothromb Time International Ratio 1.08, Anion Gap 7L, Glomerular Filtration Rate > 60.0, Blood Urea Nitrogen 15, Creatinine 0.76, Sodium Level 138, Potassium Level 3.7, Chloride Level 104, Carbon Dioxide Level 27, Calcium Level 8.5L CBC/BMP Laboratory Tests 10/14/16 06:54 Red Blood Count 4.10, Mean Corpuscular Volume 88.1, Mean Corpuscular Hemoglobin 28.5, Mean Corpuscular Hemoglobin Concent 32.4, Red Cell Distribution Width 15.0 H, Calcium Level 8.5 L Attending Note Attending Note Patient seen. Comfortable. Agree with Note by PA with regard to plan and findings. Likely discharge tomorrow, per Ortho attending. ERIN FERNANDES PA-C Oct 14, 2016 09:43 Jhonatan Duarte MD Oct 14, 2016 18:12
[2016-10-14] MEDS: MOM 30ML SUSPENSION UDC PO SCH (09:55)
[2016-10-14] MEDS: NITROFURANTOIN (MACROBID) 100 MG CAP PO SCH (09:56)
[2016-10-14] MEDS: PANTOPRAZOLE 40MG TAB (PROTONIX) PO SCH ×2 (09:56→20:48)
[2016-10-14] MEDS: DORZOLAMIDE 2% OPHTH SOLN 10 ML BTL OU SCH ×3 (09:56→20:50)
[2016-10-14] MEDS: diazePAM 10 MG TAB PO SCH (09:56)
[2016-10-14] MEDS: DULoxetine 30 MG CAP (CYMBALTA) PO SCH ×2 (09:56→20:49)
[2016-10-14] MEDS: SENOKOT S TAB PO SCH ×2 (09:56→20:49)
[2016-10-14] MEDS: MIRALAX *UNIT DOSE* 17GM PACKET PO SCH (09:56)
[2016-10-14 10:00] VITALS: BP 128/64
[2016-10-14] MEDS ORDERED: PERCOCET 5MG/325MG TAB PO PRN (10:30)
[2016-10-14] MEDS ORDERED: ONDANSETRON 4 MG ORAL DISINTEGRATING TAB (S0181) PO PRN (10:30)
[2016-10-14] MEDS: PERCOCET 5MG/325MG TAB PO PRN ×3 (11:04→20:49)
[2016-10-14 13:40] VITALS: O2SAT 94
[2016-10-14] MEDS ORDERED: WARFARIN SOD 5 MG TAB PO ONE (17:00)
[2016-10-14] MEDS: diazePAM 5 MG TAB PO SCH (20:48)
[2016-10-14] MEDS: ATORVASTATIN 20 MG TAB PO SCH (20:48)
[2016-10-14] MEDS: TOPIRAMATE (TopAMAX) 25 MG TAB PO SCH (20:48)
[2016-10-14 20:50] VITALS: O2SAT 94
[2016-10-14] MEDS: LATANOPROST 0.005% OPHTH SOLN 2.5 ML OU SCH (20:50)
[2016-10-14 22:00] VITALS: BP 143/78
--- NOTE | 2016-10-14 23:38 | RO ---
DATE OF PROCEDURE: 10/13/2016 PREPROCEDURE DIAGNOSIS: Right knee degenerative arthritis. POSTPROCEDURE DIAGNOSIS: Right knee degenerative arthritis. PROCEDURE: Right total knee arthroplasty using a size 4 narrow cruciate retaining femoral component with a size 3 tibial tray with a 10 mm rotating platform polyethylene insert and a 35 mm polyethylene button. Prosthesis was made by [employer]. It was a PFC knee. SURGEON: Contreras Bazan MD TOOL DESIGN CHECKER: Fantasma Mace PA-C ANESTHESIA: Spinal with Exparel injection. COMPLICATIONS: None. ESTIMATED BLOOD LOSS: Less than 20 mL. SPECIMENS: Joint surface. DESCRIPTION OF PROCEDURE: Antibiotics were given intravenously preoperatively and then a successful spinal anesthetic was induced. Flores catheter was attempted but we were unsuccessful. The tourniquet was placed on the right upper thigh and not inflated. The right lower extremity was then prepped and draped in the usual sterile fashion. The leg was elevated. Then, after the appropriate time-out, the tourniquet was inflated to 250 mmHg for 49 minutes. A longitudinal incision was made for a medial parapatellar approach to the knee. Bovie cautery was used to coagulate the crossing vessels. The medial parapatellar arthrotomy was then performed. Limited subperiosteal dissected along the proximal medial portion of the tibia and the proximal lateral portion of the tibia was performed. We then everted the patella and flexed the knee and removed the anterior cruciate ligament, drilled down the center of the femoral canal, followed by the intramedullary sunita with the distal femoral jig set at 5 degree valgus cut for a right knee at 10 mm resection level. The block was pinned into position. Distal femoral cut performed. The AP sizing jig measured for a size 4. That was pinned into position. Then we performed the anterior and posterior chamfer cuts were then performed, taking great care to protect the surrounding soft tissues. The 4 in 1 block was applied after we placed the 3 degree internet marketing strategist rotation block. We then exposed the proximal tibia, used the extramedullary alignment jig to be sure that we were parallel to the mechanical axis of the tibia. We referenced off the medial tibial condyle at 4 mm resection level. It was pinned into position and the secondary check was done with the extramedullary sunita. We still appeared to be parallel. We then performed the proximal tibial osteotomy. The lamina l tacker was then placed medially and we performed a completion lateral meniscectomy with debridement of the posterior and lateral osteophytes. We then placed the lamina l tacker laterally, performed medial meniscectomy and debridement of posterior medial osteophytes. We then placed the spacer blocks and a 10 mm actually gave her great stability with good symmetry between flexion and extension gaps, thus this was chosen. We then exposed the proximal tibia, sized for a #3 tibial tray. The tray was then pinned, reamed and broached into position, followed by the polyethylene and then the femoral component was applied and brought the knee into extension. Everted the patella, performed a patellar osteotomy and sized for a 35 button. The lug holes were drilled, as well as the lug holes for the femur. Trial of patellofemoral tracking was anatomic. At this point, we removed the trial components. My painter assistant, Mr. Fantasma Mace, mixed the cement on the back table. He was also critical to the success of the procedure by helping with appropriate soft tissue retraction, helping to close the wound, prepare the patient for surgery, manipulate the knee as needed throughout the operation so I could perform the operating smoothly and efficiently. The Exparel was then instilled in the periosteum along the posterior aspect of the femur, as well as along the medial and lateral periosteal sleeves, as well as into either side of the capsule arthrotomy. .The pulsatile lavage irrigant solution was instilled into the knee to thoroughly dry all the bony surfaces. We then cemented the tibial tray, removed excess cement, placed the polyethylene. Then we cemented femoral component, removed excess cement, brought the knee into extension, cemented the patellar component and removed the excess cement, brought the knee into extension and then copiously pulsatile lavage irrigated out the knee joint as we were waiting for the cement to harden. Then we placed the tranexamic acid in the knee. Some additional Exparel was placed along the capsular edges and then we began closing the arthrotomy at the apex with two #1 polydioxanone suture (PDS) sutures, and then a medial parapatellar was closed with a single #1 PDS stitch and then the double armed #1 PDS Stratafix was placed in the capsule and then the tourniquet was released. We irrigated between layers and closed the deep subdermal tissues with interrupted #2-0 PDS sutures. The skin was closed with rich covered by Adaptic dry sterile bulky dressing. She was then transferred to the recovery room in stable condition. There were no intraoperative complications.
[2016-10-15 06:00] VITALS: BP 158/74
[2016-10-15] MEDS: PERCOCET 5MG/325MG TAB PO PRN (06:16)
[2016-10-15 06:44] LABS: MEAN CORPUSCULAR HEMOGLOBIN 28.3 pg (27.0-33.0); MEAN CORPUSCULAR HGB CONC 32.6 g/dl (32.0-36.5); MEAN CORPUSCULAR VOLUME 86.7 fl (80.0-96.0); WHITE BLOOD COUNT 10.3 K/mm3 (4.0-10.0)
[2016-10-15 06:46] LABS: INR 1.25
[2016-10-15 07:00] LABS: ANION GAP 8 MEQ/L (8-16); BLOOD UREA NITROGEN 17 MG/DL (7-18); CALCIUM LEVEL 8.6 MG/DL (8.8-10.2); CARBON DIOXIDE LEVEL 26 MEQ/L (21-32); CHLORIDE LEVEL 105 MEQ/L (98-107); CREATININE FOR GFR 0.67 MG/DL (0.55-1.02); GLOMERULAR FILTRATION RATE > 60.0 (>45); GLUCOSE, FASTING 127 MG/DL (80-110); POTASSIUM SERUM 3.9 MEQ/L (3.5-5.1); SODIUM LEVEL 139 MEQ/L (136-145)
[2016-10-15] MEDS ORDERED: MAALOX 30 ML SUSP *UDC PO PRN (07:30)
[2016-10-15] MEDS ORDERED: NORCO, ANEXSIA 5/325MG TABLET (HYDROcodone/ACETAMINOPHEN) PO PRN ×2 (07:30)
[2016-10-15] MEDS: ADVAIR HFA 45/21MCG INHALER INH SCH (07:44)
[2016-10-15] MEDS ORDERED: COUM2.5T17 PO (07:46)
[2016-10-15] MEDS ORDERED: PERC5TAB12 PO (07:46)
--- NOTE | 2016-10-15 08:05 | IPNPDOC ---
Subjective Date Seen The patient was seen on 10/15/16. Subjective Chief Complaint/HPI The patient is a 61-year-old female admitted with a reason for visit of Right Knee Arthritis. Events since last encounter c/o severe pain in her right knee when she woke this morning and the pain med made her nauseated. Med adjusted by ortho and Zofran given. Constitutional: Denies: Chills, Fever Pulmonary: Denies: Dyspnea, Cough Cardiovascular: Denies: Chest Pain, Palpitations Gastrointestinal: Reports: Nausea, Vomiting (x 1 this am), Denies: Abdominal Pain, Diarrhea, Constipation Objective Physical Examination General Exam: Positive: Alert Chest Exam: Positive: Clear to auscultation, Normal air movement Heart Exam: Positive: Rate Normal, Regular Rhythm, Negative: Murmurs Abdomen Exam: Positive: Normal bowel sounds, Soft, Negative: Tenderness Extremity Exam: Negative: Edema Assessment /Plan Problems (1) Chronic pain Status: Chronic Response to Treatment: Stable Problem Text: Normally on Vicodin, Cymbalta and Topiramate for chronic pain related to Fibromyalgia and Spondylolisthesis Vicodin switched to Percocet post op for better control of knee pain for now. F/U with Pain management as outpatient (2) Anxiety Status: Chronic Response to Treatment: Stable Problem Text: Uses Valium q hs chronically - continue this to prevent withdrawal (3) Asthma Status: Chronic Response to Treatment: Stable (4) Chronic cystitis Status: Chronic Response to Treatment: Stable Problem Text: on Nitrofurantoin chronically (5) GERD (gastroesophageal reflux disease) Status: Chronic Response to Treatment: Stable (6) Fibromyalgia Plan/VTE VTE Prophylaxis Ordered?: Yes Plan/Urinary Catheter Reason for insertion/continuin: Acute obstruct/retention Disposition medically stable for d/c home today VS, I&O, 24H, Fishbone Vital Signs/I&O Vital Signs Date Time Temp Pulse Resp B/P (MAP) Pulse Ox O2 Delivery O2 Flow Rate FiO2 10/15/16 06:52 16 10/15/16 06:00 97.8 83 158/74 (102) 93 Room Air 10/14/16 20:50 1.0 I&O- Last 24 Hours up to 6 AM 10/15/16 06:00 Intake Total 1320 ml Output Total 2900 ml Balance -1580 ml Laboratory Data 24H LABS Laboratory Tests 2 10/15/16 06:17: Prothrombin Time 15.9H, Prothromb Time International Ratio 1.25, Anion Gap 8, Glomerular Filtration Rate > 60.0, Blood Urea Nitrogen 17, Creatinine 0.67, Sodium Level 139, Potassium Level 3.9, Chloride Level 105, Carbon Dioxide Level 26, Calcium Level 8.6L CBC/BMP Laboratory Tests 10/15/16 06:17 Red Blood Count 4.14, Mean Corpuscular Volume 86.7, Mean Corpuscular Hemoglobin 28.3, Mean Corpuscular Hemoglobin Concent 32.6, Red Cell Distribution Width 15.0 H, Calcium Level 8.6 L ERIN FERNANDES PA-C Oct 15, 2016 08:05
[2016-10-15] MEDS: MIRALAX *UNIT DOSE* 17GM PACKET PO SCH (09:23)
[2016-10-15] MEDS: SENOKOT S TAB PO SCH (09:24)
[2016-10-15] MEDS: DULoxetine 30 MG CAP (CYMBALTA) PO SCH (09:24)
[2016-10-15] MEDS: MOM 30ML SUSPENSION UDC PO SCH (09:24)
[2016-10-15] MEDS: diazePAM 10 MG TAB PO SCH (09:25)
[2016-10-15] MEDS: NITROFURANTOIN (MACROBID) 100 MG CAP PO SCH (09:25)
[2016-10-15] MEDS: PANTOPRAZOLE 40MG TAB (PROTONIX) PO SCH (09:25)
[2016-10-15] MEDS: DORZOLAMIDE 2% OPHTH SOLN 10 ML BTL OU SCH (09:25)
[2016-10-15 10:33] VITALS: O2SAT 95
[2016-10-15] MEDS ORDERED: WARFARIN SOD 7.5 MG TAB PO ONE (17:00)
--- NOTE | 2016-10-22 07:28 | DSES ---
DATE OF ADMISSION: 10/13/2016 DATE OF DISCHARGE: 10/15/2016 ADMITTING DIAGNOSIS: 1. Osteoarthritis right knee. OTHER DIAGNOSES: 1. Elevated cholesterol. 2. Fibromyalgia. 3. Chronic cystitis. 4. Obesity. 5. Gastric reflux disease. 6. Gastritis. 7. Anxiety 8. Elevated lipids. 9. Chronic back pain. DISCHARGE DIAGNOSIS: 1. Osteoarthritis right knee, status post right total knee arthroplasty. ATTENDING PHYSICIAN: Heraclio Bazan M.D. HISTORY: This is a pleasant 61-year-old female patient with progressively worsening right knee pain and stiffness. She failed to improve with conservative management. She was admitted for elective knee replacement on the right side. OPERATION PERFORMED: Right total knee arthroplasty. HOSPITAL COURSE: The patient was admitted on day of surgery, underwent a right total knee arthroplasty, which was uneventful. She did well in the postoperative period and her hospital course was without complications. She was up with physical therapy per their protocol. Her pain was controlled on day of discharge. She was doing well. Weightbearing as tolerated on the right lower extremity. She will move her right knee to prevent stiffness. She will use adjusted dose Coumadin and ADRIANA stockings for deep vein thrombosis (DVT) prophylaxis. She will use oral pain medications for pain control. She will resume her preoperative medications and diet. She was given instructions to include but not limited to wound monitoring and activity limitations. She will follow up in our office in 10-14 days for surgical followup. She will use oral pain medications for pain control. Please refer the medical record for further details.
== END 2016-10-15 13:15 | disposition home health service (06) | DRG 470 ==
LOC: M OR 06:40 → M MS5PR 13:15
PROVIDERS: ADMIT Orthopaedic Surgery; ATTEND Orthopaedic Surgery
PROC: 0SRC0JZ Replacement of Right Knee Joint with Synthetic Substitute, Open Approach (ICD-10-PCS; principal; 2016-10-13 09:30)
DX: M17.11 Unilateral primary osteoarthritis, right knee (principal); E78.00 Pure hypercholesterolemia, unspecified; M79.7 Fibromyalgia; E66.9 Obesity, unspecified; K21.9 Gastro-esophageal reflux disease without esophagitis; N30.20 Other chronic cystitis without hematuria; F41.9 Anxiety disorder, unspecified; E78.5 Hyperlipidemia, unspecified; M54.40 Lumbago with sciatica, unspecified side; R26.89 Other abnormalities of gait and mobility; J45.909 Unspecified asthma, uncomplicated; H40.9 Unspecified glaucoma; Z79.899 Other long term (current) drug therapy; Z68.33 Body mass index [BMI] 33.0-33.9, adult

== ENCOUNTER → 2016-10-16 | Outpatient (REF) | payer MEDICARE ==
[~2016-10-16] MED LIST changes: +COUM2.5T17 PO; +PERC5TAB12 PO
[2016-10-16 15:38] LABS: INR 1.77
== END ==
LOC: M SHH 15:15
PROVIDERS: ATTEND Nurse Practitioner Family
DX: Z79.01 Long term (current) use of anticoagulants (principal)

== ENCOUNTER → 2016-10-20 | Outpatient (REF) | payer MEDICARE ==
[2016-10-20 13:12] LABS: INR 2.3
== END ==
LOC: M SHH 12:15
PROVIDERS: ATTEND Nurse Practitioner Family
DX: Z79.01 Long term (current) use of anticoagulants (principal)

== ENCOUNTER → 2016-10-23 | Outpatient (REF) | payer MEDICARE ==
[2016-10-23 12:41] LABS: INR 1.77
== END ==
LOC: M SHH 11:40
PROVIDERS: ATTEND Nurse Practitioner Family
DX: Z79.01 Long term (current) use of anticoagulants (principal)

== ENCOUNTER → 2016-10-27 | Outpatient (REF) | payer MEDICARE ==
[2016-10-27 11:19] LABS: INR 1.82
== END ==
LOC: M LABDRAW1 11:06
PROVIDERS: ATTEND Orthopaedic Surgery
DX: Z79.01 Long term (current) use of anticoagulants (principal)

== ENCOUNTER → 2016-10-30 | Outpatient (REF) | payer MEDICARE ==
[2016-10-30 12:49] LABS: INR 1.31
== END ==
LOC: M SHH 12:20
PROVIDERS: ATTEND Nurse Practitioner Family
DX: Z79.01 Long term (current) use of anticoagulants (principal)

== ENCOUNTER → 2016-11-03 | Outpatient (REF) | payer MEDICARE ==
[2016-11-03 11:33] LABS: INR 1.28
== END ==
LOC: M SHH 11:04
PROVIDERS: ATTEND Nurse Practitioner Family
DX: Z79.01 Long term (current) use of anticoagulants (principal)

== ENCOUNTER → 2016-11-06 | Outpatient (REF) | payer MEDICARE ==
[2016-11-06 13:30] LABS: INR 1.22
== END ==
LOC: M SHH 13:01
PROVIDERS: ATTEND Nurse Practitioner Family
DX: Z79.01 Long term (current) use of anticoagulants (principal)

== ENCOUNTER → 2016-11-10 | Outpatient (REF) | payer MEDICARE ==
[2016-11-10 13:52] LABS: INR 1.31
== END ==
LOC: M SHH 13:01
PROVIDERS: ATTEND Nurse Practitioner Family
DX: Z79.01 Long term (current) use of anticoagulants (principal)

== ENCOUNTER → 2016-12-11 | Outpatient (REF) | payer MEDICARE | LOC: M LABDRAW1 11:04 | PROVIDERS: ATTEND Ophthalmology | DX: G93.81 Temporal sclerosis (principal) ==

== ENCOUNTER → 2017-01-09 | Outpatient (CLI) | payer OTHER, MEDICARE ==
--- NOTE | 2017-01-24 23:58 | ECWPNPC ---
PATIENT NAME: ADY KING : 1955 GENDER: FEMALE VISIT DATE: 01/09/2017 DISCHARGE DATE: 01/09/17 1401 VISIT LOCKED DATE TIME: PHYSICIAN: SHELBI GASTELUM RESOURCE: SHELBI GASTELUM REASON FOR APPOINTMENT 1. MEDS W/C HISTORY OF PRESENT ILLNESS HISTORY OF PRESENT ILLNESS: PAIN THE PATIENT DESCRIBES THE PAIN... 60 YEAR OLD FEMALE PATIENT WITH HISTORY OF CHRONIC LOW BACK PAIN. PATIENT DESCRIBES THE PAIN SHOOTING WITH A PAIN SCORE OF 8/10 AT TODAY'S VISIT. 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 MRS. KING STATES THAT SHE WAS ALSO INJURED FROM LIFTING NUMEROUS PATIENTS AND IT ENDED UP BEING TOO MUCH FOR HER BACK. PATIENT STATES THAT SHE HAS TRIED PT IN THE PAST AND IT DID NOT REALLY WORK FOR HER. PATIENT STATES THAT SHE HAS HAD ONE BACK SURGERY IN 05/20/1992. CURRENTLY THE PATIENT IS USING VICODIN, PROTONIX, CYCLOBENZAPRINE, AND CYMBALTA WHICH SHE STATES KEEPS HER MOBILE AND FUNCTIONAL. PATIENT HAS TRIED TO REDUCE THE AMOUNT OF CYCLOBENZAPRINE AND REPORTS NOT BEING ABLE TO FUNCTIONAL WHEN DOING SO. PATIENT REPORTS SHE DOES NOT LIKE TO USE NSAIDS DUE TO CAUSING GASTROINTESTINAL PAIN. MRS. KING REPORTS A NEW PAIN THAT GOES DOWN BOTH LEGS AND BECOMES VERY SEVERE BELOW THE KNEES AND IS UNSURE WHAT IS CAUSING THIS PAIN. PATIENT DENIES UNEXPLAINABLE WEIGHT LOSS, FEVER, CHILLS, NEW CHANGES ON HER URINARY OR BOWEL CONTROL. FALL RISK SCREENING: SCREENING :NO FALLS IN THE PAST YEAR CURRENT MEDICATIONS TAKING PROTONIX 40 MG TABLET DELAYED RELEASE DIRECTED ORALLY BID FOR STOMACH PAIN MDD2 TAKING ALBUTEROL SULFATE HFA 108 (90 BASE) MCG/ACT AEROSOL SOLUTION 2 PUFFS NEEDED INHALATION EVERY 4 HRS TAKING TOPIRAMATE 50 50MG TABLET 1 TAB ORAL ONCE A DAY TAKING XALATAN 0.005 % SOLUTION 1 DROP INTO AFFECTED EYE IN THE EVENING OPHTHALMIC ONCE A DAY TAKING ATORVASTATIN CALCIUM 20 MG TABLET 1 TABLET ORALLY ONCE A DAY TAKING CYMBALTA 30 MG CAPSULE DELAYED RELEASE PARTICLES 1 CAPSULE ORALLY WITH FOOD TWICE A DAY FOR PAIN MDD2 TAKING VICODIN 5-300 MG TABLET 1 TABLET NEEDED FOR PAIN ORALLY (CODE D FOR CHRONIC PAIN ) TWICE DAILY NEEDED FOR PAIN MDD2 TAKING NITROFURANTOIN MACROCRYSTAL 100 MG CAPSULE 1 CAPSULE WITH FOOD OR MILK ORALLY DAILY TAKING ADVAIR DISKUS 100-50 MCG/DOSE MISCELLANEOUS 1 INHALATION EVERY 12 HRS TAKING CYCLOBENZAPRINE HCL 10 MG TABLET 1 TABLET ORALLY BID NEEDED FOR SPASMS AND PAIN MDD2 TAKING DIAZEPAM 5 MG TABLET 2 TABLETS IN THE MORNING AND 1.5 TABLETS IN THE EVENING NEEDED FOR ANXIETY ORALLY TWICE DAILY DIRECTED MDD#3.5 MEDICATION LIST REVIEWED AND RECONCILED WITH THE PATIENT PAST MEDICAL HISTORY SPONDYLOLITHESIS FIBROMYALGIA ASTHMA CHRONIC CYSTITIS KIDNEY STONES DEPRESSION LEFT INTERNAL CAROTID ANEURYSM - S/P COIL/STENT 01/2012; DR. HERNANDEZ IN [place] [facility] - DR. JACKSON ANXIETY DIVERTICULOSIS REFLUX ESOPHAGITIS CHEMICAL GASTRITIS ALLERGIES N.K.D.A. SURGICAL HISTORY LAMINECTOMY AND DISCECTOMY WITH REMOVAL OF DISC FAGMENT 05-20-1992 CEREBRAL ANEURYSM [address] JOSE INIGUEZ 09/2016 APPENDECTOMY SOCIAL HISTORY GENERAL: TOBACCO USE ARE YOU A:FORMER SMOKER HOW LONG HAS IT BEEN SINCE YOU LAST SMOKED?> 10 YEARS BMI CARE GOAL FOLLOW-UP ABOVE NORMAL BMI FOLLOW-UPGIVING ENCOURAGEMENT TO EXERCISE ALCOHOL SCREENING DID YOU HAVE A DRINK CONTAINING ALCOHOL IN THE PAST YEAR?NO POINTS0 INTERPRETATIONNEGATIVE RECREATIONAL DRUG USE DRUG USE?NO CAFFEINE CAFFEINE USE?NO SEXUAL HX HAD SEX IN THE LAST 12 MONTHS (VAGINAL, ORAL, OR ANAL)?NO HAVE YOU EVER HAD AN STD?NO HIV / HEP-C SCREENING HIV TEST OFFERED TO PATIENT:YES DATE OFFERED:10/09/2016 TEST ACCEPTED:NO REASON:PATIENT DECLINED HEP-C TEST OFFERED TO PATIENT:YES DATE OFFERED:10/09/2016 TEST ACCEPTED:NO REASON:PATIENT DECLINED TAOIST [id number] CONGREGATION LANGUAGE LANGUAGES SPOKEN:CONGOLESE EDUCATION LEVEL OF EDUCATION:NOT FINISHED COLLEGE LEARNING BARRIERS / SPECIAL NEEDS CHANGE FROM LAST VISIT?NO BARRIERS TO LEARNING?NO HEARING IMPAIRED?NO VISION IMPAIRED?YES :CORRECTIVE LENSES COGNITIVELY IMPAIRED?NO READINESS TO LEARN?YES LEARNING PREFERENCES?NO LEARNING CAPABILITIES PRESENT?YES EMOTIONAL BARRIERS?NO SPECIAL DEVICES?YES :OTHER CRUTCH CAR RECORD CLERK NEEDED?NO PAIN CLINIC PFS, CLERGY, PUBLIC HEALTH REFERRALS PFS REFERRAL NEEDED?NO CLERGY REFERRAL NEEDED?NO PUBLIC HEALTH REFERRAL NEEDED?NO WAS THE PROVIDER NOTIFIED OF ANY PERTINENT INFO?NO HAS THE PATIENT BEEN EDUCATED REGARDING HIS/HER PLAN OF CARE?YES HAS THE PATIENT BEEN EDUCATED REGARDING PAIN, THE RISK FOR PAIN, THE IMPORTANCE OF EFFECTIVE PAIN MANAGEMENT, AND THE PAIN ASSESSMENT PROCESS?YES PATIENT: ____. HOSPITALIZATION/MAJOR DIAGNOSTIC PROCEDURE SURGERY RELATED REVIEW OF SYSTEMS REVIEWED BY: PROVIDER: SHELBI GASTELUM MD . CONSTITUTIONAL: ANY CHANGE IN YOUR MEDICAL CONDITION? YES, PT REPORTS RIGHT KNEE REPLACEMENT 09/2016. . CHILLS NO . FEVER NO . INFECTION: DO YOU HAVE NEW INFECTIONS? NO . DO YOU HAVE HISTORY OF MRSA? NO . MUSCULOSKELETAL: ANY NEW PATTERNS OF PAIN OR NUMBNESS? NO . GASTROENTEROLOGY: ANY NEW CHANGE IN BOWEL CONTROL? NO, PT REPORTS RECENT DX OF DIVERTICULOSIS . GENITOURINARY: ANY NEW CHANGE IN BLADDER CONTROL? NO . IS THERE A CHANCE YOU COULD BE ? NO . HEMATOLOGY/LYMPH: DO YOU TAKE ANY BLOOD THINNERS? (FOR EXAMPLE- COUMADIN, PLAVIX, AGGRENOX, PLATEL, PRADAXA, OR XARELTO) NO . WHEN WAS YOUR LAST DOSE? DATE: TIME: . NEUROLOGY: HAVE YOU FALLEN IN THE PAST 6 MONTHS? NO . ANY NEW EXTREMITY NUMBNESS OR WEAKNESS? NO . CARDIOLOGY: DO YOU HAVE A PACEMAKER OR DEFIBRILLATOR? NO . RESPIRATORY: HAVE YOU BEEN SICK IN THE PAST WEEK? NO . FEVER NO . FLU LIKE SYMPTOMS? NO . COUGH NO . INTEGUMENTARY: DO YOU HAVE ANY RASHES OR OPEN SORES? NO . ALLERGIC/IMMUNO: ARE YOU ALLERGIC TO SHELLFISH OR IV DYE? NO . ANY NEW ALLERGIES? NO . PSYCHIATRIC: DO YOU HAVE THOUGHTS OF HURTING YOURSELF OR SOMEONE ELSE? NO . ARE YOU ABUSED, NEGLECTED, OR IN AN UNSAFE ENVIRONMENT? NO . ENDOCRINOLOGY: ARE YOU DIABETIC? NO . OTHER: DO YOU NEED ANY PRESCRIPTIONS? NO . IF YES, PLEASE LIST: ____ . ANY NEW PROBLEMS WITH YOUR MEDICATIONS? NO . WHEN DID YOU LAST EAT? ____ . WHEN DID YOU LAST DRINK? ____ . WHAT DID YOU LAST DRINK? ____ . NAME OF PERSON DRIVING YOU HOME? ____ . DO YOU HAVE ANY OTHER QUESTIONS OR CONCERNS YES, PAIN IN LOWER LEGS . VITAL SIGNS WT 207 LBS, HT 66", BMI 33.41 INDEX, BP 153/80 MM HG, HR 100 /MIN, RR 18 /MIN, TEMP 97.1 F, OXYGEN SAT % 100%, REVIEWED BY: EM. EXAMINATION : PATIENT IS ALERT O X 3 AND COOPERATIVE. ANTALGIC GAIT. LIMPING FROM THE RIGHT LEG. PATIENT'S RIGHT LEG IS WEAKER AT FLEXION AND EXTENSION COMPARED TO THE LEFT LEG. PATIENT HAS TENDERNESS IN THE SACROILIAC PARASPINAL MUSCLE GROUP. ASSESSMENTS POSTLAMINECTOMY SYNDROME, NOT ELSEWHERE CLASSIFIED - M96.1 (PRIMARY) SACROILIITIS, NOT ELSEWHERE CLASSIFIED - M46.1 MYALGIA - M79.1 TREATMENT POSTLAMINECTOMY SYNDROME, NOT ELSEWHERE CLASSIFIED REFILL CYMBALTA CAPSULE DELAYED RELEASE PARTICLES, 30 MG, 1 CAPSULE, ORALLY WITH FOOD, TWICE A DAY FOR PAIN MDD2, 30 DAY(S), 60, REFILLS 1 REFILL VICODIN TABLET, 5-300 MG, 1 TABLET NEEDED FOR PAIN, ORALLY FOR PAIN, EVERY 8 HRS NEEDED FOR PAIN MDD2, 30 DAY(S), 60, REFILLS 0 REFILL CYCLOBENZAPRINE HCL TABLET, 10 MG, 1 TABLET, ORALLY, BID NEEDED FOR SPASMS AND PAIN MDD2, 30 DAYS, 50, REFILLS 1 START GABAPENTIN CAPSULE, 300 MG, 1 CAPSULE, ORALLY FOR PAIN, BEFORE BEDTIME, 30 DAY(S), 30, REFILLS 1 REFILL PROTONIX TABLET DELAYED RELEASE, 40 MG, DIRECTED, ORALLY, BID FOR STOMACH PAIN MDD2, 30 DAY(S), 60, REFILLS 1 NOTES: WE DISCUSSED SEVERAL ISSUES WITH MRS. KING PAIN MANAGEMENT CASE. AT THIS TIME THE PATIENT WILL CONTINUE TO USE THE SAME MEDICATION REGIME BEFORE. PATIENT IS USING THE CYCLOBENZAPRINE FOR THE MUSCLE SPASMS BUT WILL TRY TO WEAN FROM THE MEDICATION. VICODIN IS USED FOR THE SOMATIC PAIN AND CYMBALTA FOR THE NEUROPATHIC PAIN. I WOULD LIKE THE PATIENT TO START GABAPENTIN TO SEE IF IT WILL AID IN RELIEF FROM THIS NEW NEUROPATHIC PAIN THAT IS GOING DOWN THE LEGS. AFTER RECEIVING A LETTER FROM THE PRIMARY CARE ON 10/10/16 I FEEL COMFORTABLE PRESCRIBING THIS MEDICATION AT THIS TIME. PATIENT IS USING THE PROTONIX FOR THE STOMACH ISSUES FROM THE MEDICATIONS. PATIENT WAS ADVISED TO SLOWLY INCREASE THIS MEDICATION AND TO STOP IF SHE HAS ANY ADVERSE SIDE EFFECTS. MRS. KING DENIES ABUSE OF ANY MEDICATION, DENIES USE OF ILLEGAL SUBSTANCES, AND STATES THAT SHE IS ONLY USING THE MEDICATION FOR PAIN MANAGEMENT. PATIENT BROUGHT MEDICATIONS TO TODAY'S VISIT. URINE TOXICOLOGY REPORT DONE ON 10/07/16 SHOWS CONSISTENT RESULTS WITH THE PATIENT'S MEDICATION LIST. WE PERFORMED A RANDOM PILL COUNTING AT TODAY'S VISIT. DUE TO THE NEW PATTERN OF PAIN I WOULD LIKE THE PATIENT TO RECEIVE AN UPDATED MRI ALONG WITH A BUN AND CREATINE TEST TO MAKE SURE THAT HER KIDNEYS ARE FUNCTIONING PROPERLY. PATIENT WILL FOLLOW UP AFTER THE MRI TO DISCUSS HER CASE FURTHER. INSTRUCTIONS WERE GIVEN, QUESTIONS WERE ANSWERED, PATIENT REPORTS UNDERSTANDING AND AGREES WITH THE PLAN. I, HAIDER ELLIOTT, DOCUMENTED THE ABOVE INFORMATION ACTING A SCRIBE FOR DR. GASTELUM. I HAVE REVIEWED THE ABOVE DOCUMENT, WRITTEN BY HAIDER VENTURA AND I VERIFY THAT IT IS ACCURATE. PROCEDURES PN WORKMANS' COMP OPINION IN YOUR OPINION, WAS THE INCIDENT THAT THE PATIENT DESCRIBED THE COMPETENT MEDICAL CAUSE OF THIS INJURY/ILLNESS? YES ARE THE PATIENT'S COMPLAINTS CONSISTENT WITH HIS/HER HISTORY OF THE INJURY/ILLNESS? YES IS THE PATIENT'S HISTORY OF THE INJURY/ILLNESS CONSISTENT WITH YOUR OBJECTIVE FINDING? YES WHAT IS THE PERCENTAGE OF TEMPORARY IMPAIRMENT? MODERATE TO MARKED = 66.7% IS THE PATIENT WORKING? NO DOCTOR ON SITE: SHELBI ERAZO MD PROCEDURE CODES FA211 ESTABILISHED PATIENT [facility] FACILITY CHARGE G8427 DOC MEDS VERIFIED W/PT OR RE G8730 PAIN ASSESS POS TOOL F/U PLAN DOC DISPOSITION & COMMUNICATION FOLLOW UP 3 WEEKS ELECTRONICALLY SIGNED BY SHELBI GASTELUM MD ON 01/22/2017 AT 01:27 PM EDT DISCLAIMER : THIS IS A VISIT SUMMARY EXTRACTED FROM THE [employer] CHART. IT IS NOT A COPY OF THE [employer] PROGRESS NOTE. MTDKirit
== END ==
LOC: M PAIN 13:00
PROVIDERS: ATTEND Anesthesiology
DX: G89.29 Other chronic pain (principal); M96.1 Postlaminectomy syndrome, not elsewhere classified; M46.1 Sacroiliitis, not elsewhere classified; M79.1 Myalgia; F32.9 Major depressive disorder, single episode, unspecified; H40.9 Unspecified glaucoma; N30.20 Other chronic cystitis without hematuria; J45.909 Unspecified asthma, uncomplicated; F41.9 Anxiety disorder, unspecified; K57.90 Diverticulosis of intestine, part unspecified, without perforation or abscess without bleeding; K21.0 Gastro-esophageal reflux disease with esophagitis; Z96.651 Presence of right artificial knee joint; Z87.442 Personal history of urinary calculi; Z87.891 Personal history of nicotine dependence; Z79.891 Long term (current) use of opiate analgesic; Z79.899 Other long term (current) drug therapy

== ENCOUNTER → 2017-01-22 | Outpatient (REF) | payer MEDICARE | LOC: M LAB REF 12:36 | PROVIDERS: ATTEND Family Medicine | DX: L82.1 Other seborrheic keratosis (principal) ==

== ENCOUNTER → 2017-02-06 | Outpatient (CLI) | payer OTHER | LOC: M PAIN 09:15 | PROVIDERS: ATTEND Nurse Practitioner Family | DX: M96.1 Postlaminectomy syndrome, not elsewhere classified (principal); M46.1 Sacroiliitis, not elsewhere classified; M79.1 Myalgia; M54.5 Low back pain; G89.29 Other chronic pain; J45.909 Unspecified asthma, uncomplicated; F41.9 Anxiety disorder, unspecified; Z79.891 Long term (current) use of opiate analgesic; Z79.899 Other long term (current) drug therapy; Z86.79 Personal history of other diseases of the circulatory system ==

== ENCOUNTER → 2017-02-25 | Outpatient (REF) | payer OTHER ==
[2017-02-25 13:38] LABS: BLOOD UREA NITROGEN 18 MG/DL (7-18); CREATININE FOR GFR 0.69 MG/DL (0.55-1.02); GLOMERULAR FILTRATION RATE > 60.0 (>45)
== END ==
LOC: M LABDRAW1 11:17
PROVIDERS: ATTEND Anesthesiology
DX: Z01.812 Encounter for preprocedural laboratory examination (principal)

== ENCOUNTER → 2017-04-10 | Outpatient (CLI) | payer OTHER | LOC: M PAIN 09:45 | DX: G89.29 Other chronic pain (principal); M96.1 Postlaminectomy syndrome, not elsewhere classified; M46.1 Sacroiliitis, not elsewhere classified; M79.1 Myalgia; J45.909 Unspecified asthma, uncomplicated; F32.9 Major depressive disorder, single episode, unspecified; F41.9 Anxiety disorder, unspecified; K21.9 Gastro-esophageal reflux disease without esophagitis; Z79.899 Other long term (current) drug therapy; Z87.891 Personal history of nicotine dependence; Z96.651 Presence of right artificial knee joint | CPT/HCPCS: G0463 ==

== ENCOUNTER → 2017-04-27 | Outpatient (REF) | payer MEDICARE ==
[2017-04-27 11:45] LABS: BASO # 0.1 10^3/uL (0.0-0.2); BASO % 1.4 % (0.0-1.0); EOS # 0.2 10^3/uL (0.0-0.50); IMMATURE GRANULOCYTE % 0.2 % (0-0); LYMPH # 1.9 10^3/uL (1.5-4.5); LYMPH % 28.4 % (24.0-44.0); MEAN CORPUSCULAR HEMOGLOBIN 22.4 pg (27.0-33.0); MEAN CORPUSCULAR HGB CONC 28.9 g/dl (32.0-36.5); MEAN CORPUSCULAR VOLUME 77.6 fl (80.0-96.0); MONO # 0.6 10^3/uL (0.0-0.8); MONO % 8.7 % (0.0-5.0); NEUTROPHILS # 3.8 10^3/uL (1.8-7.7); NEUTROPHILS % 58.3 % (36.0-66.0); PLATELET COUNT, AUTOMATED 324 10^3/uL (150-450); RED CELL DISTRIBUTION WIDTH 17.6 % (11.5-14.5); WHITE BLOOD COUNT 6.6 10^3/uL (4.0-10.0)
[2017-04-27 12:11] LABS: ALBUMIN 3.8 GM/DL (3.2-5.2); ALBUMIN/GLOBULIN RATIO 1.23 (1.00-1.93); ALKALINE PHOSPHATASE 160 U/L (45-117); ALT/SGPT 31 U/L (12-78); ANION GAP 7 MEQ/L (8-16); AST/SGOT 24 U/L (7-37); BILIRUBIN,TOTAL 0.6 MG/DL (0.2-1.0); BLOOD UREA NITROGEN 15 MG/DL (7-18); CALCIUM LEVEL 9.1 MG/DL (8.8-10.2); CARBON DIOXIDE LEVEL 28 MEQ/L (21-32); CHLORIDE LEVEL 108 MEQ/L (98-107); CREATININE FOR GFR 0.79 MG/DL (0.55-1.30); GLOMERULAR FILTRATION RATE > 60.0 (>45); GLUCOSE, FASTING 99 MG/DL (70-100); LIPASE 114 U/L (73-393); POTASSIUM SERUM 4.6 MEQ/L (3.5-5.1); SODIUM LEVEL 143 MEQ/L (136-145); TOTAL PROTEIN 6.9 GM/DL (6.4-8.2)
== END ==
LOC: M SFHCPLAZ 08:54
DX: R10.13 Epigastric pain (principal)
CPT/HCPCS: 83690

== ENCOUNTER → 2017-04-30 | Outpatient (REF) | payer MEDICARE ==
[2017-04-30 12:43] LABS: FERRITIN 6 NG/ML (8-252); IRON (FE) 30 UG/DL (50-170); PERCENT SATURATION 8.4 % (13.2-45.0); TOTAL IRON BINDING CAPACITY 359 UG/DL (250-450)
[2017-05-01 11:47] LABS: PRETREATED FOLATE FOR RBCFOL 14.1 NG/ML; RBC FOLATE 800.3 NG/ML (280-791)
[2017-05-03 08:06] LABS: TRANSFERRIN 310 mg/dL (200-370)
== END ==
LOC: M SFHCPLAZ 09:53
DX: D64.9 Anemia, unspecified (principal)
CPT/HCPCS: 83550

== ENCOUNTER → 2017-05-15 | Outpatient (REF) | payer MEDICARE ==
[2017-05-15 11:53] LABS: BASO # 0.1 10^3/uL (0.0-0.2); BASO % 0.8 % (0.0-1.0); EOS # 0.3 10^3/uL (0.0-0.50); EOS % 4.5 % (0.0-3.0); HEMOGLOBIN 11.4 g/dl (12.0-16.0); IMMATURE GRANULOCYTE % 0.3 % (0-3.0); LYMPH # 1.4 10^3/uL (1.5-4.5); LYMPH % 22.1 % (24.0-44.0); MEAN CORPUSCULAR HEMOGLOBIN 23.6 pg (27.0-33.0); MEAN CORPUSCULAR VOLUME 78.5 fl (80.0-96.0); MONO # 0.6 10^3/uL (0.0-0.8); MONO % 8.7 % (0.0-5.0); NEUTROPHILS % 63.6 % (36.0-66.0); PLATELET COUNT, AUTOMATED 277 10^3/uL (150-450); RED BLOOD COUNT 4.84 10^6/uL (4.00-5.40); RED CELL DISTRIBUTION WIDTH 20.5 % (11.5-14.5); WHITE BLOOD COUNT 6.3 10^3/uL (4.0-10.0)
[2017-05-15 12:09] LABS: FERRITIN 26 NG/ML (8-252); IRON (FE) 196 UG/DL (50-170); PERCENT SATURATION 63.8 % (13.2-45.0); TOTAL IRON BINDING CAPACITY 307 UG/DL (250-450)
== END ==
LOC: M LABDRAW1 08:40
DX: R10.13 Epigastric pain (principal)
CPT/HCPCS: 83550

== ENCOUNTER 2017-05-25 11:05 | Day surgery (SDC) | payer MEDICARE ==
[2017-05-25] MEDS: NS 1,000 ML IV (11:44)
[2017-05-25] MEDS ORDERED: LIDOCAINE 2% INJ 100 MG/5 ML SDV (FOR ANES.) As Ordered (12:44)
[2017-05-25] MEDS ORDERED: PROPOFOL 200 MG/20 ML VIAL As Ordered ×2 (12:44→13:27)
[2017-05-25] MEDS ORDERED: fentaNYL 100 MCG/2 ML INJECTION (J3010) As Ordered (12:55)
== END 2017-05-25 15:11 | disposition home or self-care (01) ==
LOC: M SDC 15:11
DX: K29.70 Gastritis, unspecified, without bleeding (principal); K31.7 Polyp of stomach and duodenum; R10.13 Epigastric pain; R11.2 Nausea with vomiting, unspecified; D12.2 Benign neoplasm of ascending colon; K64.4 Residual hemorrhoidal skin tags; K64.8 Other hemorrhoids; J45.909 Unspecified asthma, uncomplicated; M79.7 Fibromyalgia; D64.9 Anemia, unspecified; H40.9 Unspecified glaucoma; K57.90 Diverticulosis of intestine, part unspecified, without perforation or abscess without bleeding; M43.10 Spondylolisthesis, site unspecified; F41.9 Anxiety disorder, unspecified; K21.0 Gastro-esophageal reflux disease with esophagitis; E78.00 Pure hypercholesterolemia, unspecified; K58.9 Irritable bowel syndrome, unspecified; K59.00 Constipation, unspecified; I67.1 Cerebral aneurysm, nonruptured; Z87.891 Personal history of nicotine dependence; Z79.899 Other long term (current) drug therapy; Z79.51 Long term (current) use of inhaled steroids; Z79.82 Long term (current) use of aspirin
CPT/HCPCS: 43239

== ENCOUNTER → 2017-06-09 | Outpatient (CLI) | payer OTHER, MEDICARE | LOC: M PAIN 09:00 | DX: M96.1 Postlaminectomy syndrome, not elsewhere classified (principal); M46.1 Sacroiliitis, not elsewhere classified; M79.1 Myalgia; J45.909 Unspecified asthma, uncomplicated; F32.9 Major depressive disorder, single episode, unspecified; F41.9 Anxiety disorder, unspecified; K21.9 Gastro-esophageal reflux disease without esophagitis; Z79.899 Other long term (current) drug therapy; Z95.828 Presence of other vascular implants and grafts; Z96.651 Presence of right artificial knee joint; Z86.79 Personal history of other diseases of the circulatory system; Z87.891 Personal history of nicotine dependence | CPT/HCPCS: G0463 ==

== ENCOUNTER → 2017-07-27 | Outpatient (REF) | payer MEDICARE ==
[2017-07-27 12:55] LABS: HEMATOCRIT 40.5 % (36.0-47.0); HEMOGLOBIN 12.4 g/dl (12.0-15.5); MEAN CORPUSCULAR HEMOGLOBIN 26.1 pg (27.0-33.0); MEAN CORPUSCULAR HGB CONC 30.6 g/dl (32.0-36.5); MEAN CORPUSCULAR VOLUME 85.1 fl (80.0-96.0); PLATELET COUNT, AUTOMATED 261 10^3/uL (150-450); RED BLOOD COUNT 4.76 10^6/uL (4.00-5.40); RED CELL DISTRIBUTION WIDTH 17.6 % (11.5-14.5); WHITE BLOOD COUNT 5.9 10^3/uL (4.0-10.0)
== END ==
LOC: M SFHCPLAZ 07:30
DX: D50.8 Other iron deficiency anemias (principal)
CPT/HCPCS: 85027

== ENCOUNTER → 2017-08-18 | Outpatient (CLI) | payer OTHER | LOC: M PAIN 08:45 | DX: M96.1 Postlaminectomy syndrome, not elsewhere classified (principal); M46.1 Sacroiliitis, not elsewhere classified; M79.1 Myalgia; J45.909 Unspecified asthma, uncomplicated; F32.9 Major depressive disorder, single episode, unspecified; Z79.899 Other long term (current) drug therapy; Z95.828 Presence of other vascular implants and grafts; Z96.651 Presence of right artificial knee joint; Z98.84 Bariatric surgery status; Z87.891 Personal history of nicotine dependence | CPT/HCPCS: G0463 ==

== ENCOUNTER → 2017-08-26 | Outpatient (REF) | payer MEDICARE ==
[2017-08-26 16:26] LABS: BASO # 0.1 10^3/uL (0.0-0.2); BASO % 0.8 % (0.0-1.0); EOS # 0.2 10^3/uL (0.0-0.50); EOS % 1.8 % (0.0-3.0); HEMOGLOBIN 13.6 g/dl (12.0-15.5); IMMATURE GRANULOCYTE % 0.2 % (0-3.0); LYMPH # 2.4 10^3/uL (1.5-4.5); LYMPH % 26.7 % (24.0-44.0); MEAN CORPUSCULAR HEMOGLOBIN 26.4 pg (27.0-33.0); MEAN CORPUSCULAR HGB CONC 30.9 g/dl (32.0-36.5); MEAN CORPUSCULAR VOLUME 85.3 fl (80.0-96.0); MONO # 0.7 10^3/uL (0.0-0.8); MONO % 7.5 % (0.0-5.0); NEUTROPHILS # 5.7 10^3/uL (1.8-7.7); PLATELET COUNT, AUTOMATED 274 10^3/uL (150-450); RED BLOOD COUNT 5.16 10^6/uL (4.00-5.40); RED CELL DISTRIBUTION WIDTH 15.1 % (11.5-14.5)
[2017-08-26 16:44] LABS: ALBUMIN 3.9 GM/DL (3.2-5.2); ALBUMIN/GLOBULIN RATIO 1.39 (1.00-1.93); ALKALINE PHOSPHATASE 157 U/L (45-117); ALT/SGPT 29 U/L (12-78); ANION GAP 4 MEQ/L (8-16); AST/SGOT 16 U/L (7-37); BILIRUBIN,TOTAL 0.4 MG/DL (0.2-1.0); BLOOD UREA NITROGEN 18 MG/DL (7-18); CARBON DIOXIDE LEVEL 29 MEQ/L (21-32); CHLORIDE LEVEL 111 MEQ/L (98-107); CREATININE FOR GFR 0.89 MG/DL (0.55-1.30); GLOMERULAR FILTRATION RATE > 60.0 (>45); GLUCOSE, FASTING 97 MG/DL (70-100); POTASSIUM SERUM 4.3 MEQ/L (3.5-5.1); SODIUM LEVEL 144 MEQ/L (136-145); TOTAL PROTEIN 6.7 GM/DL (6.4-8.2)
[2017-08-26 16:58] LABS: APPEARANCE, URINE MANUAL CLEAR (CLEAR); COLOR, URINE MANUAL DK YELLOW (YELLOW)
[2017-08-26 16:59] LABS: BILIRUBIN, URINE MANUAL NEGATIVE (NEGATIVE); BLOOD URINE MANUAL NEGATIVE (NEGATIVE); GLUCOSE, URINE (UA) MANUAL NEGATIVE (NEGATIVE); KETONE, URINE MANUAL NEGATIVE (NEGATIVE); LEUKOCYTE ESTERASE, URINE MAN TRACE (NEGATIVE); MICROSCOPIC INDICATED? MAN YES (NO); NITRITE, URINE MANUAL NEGATIVE (NEGATIVE); PROTEIN, URINE MANUAL NEGATIVE (NEGATIVE); SPECIFIC GRAVITY,URINE MANUAL 1.022 (1.002-1.035); UROBILINOGEN, URINE MANUAL NORMAL (NORMAL)
[2017-08-26 17:17] LABS: AMORPHOUS SEDIMENT, URINE LARGE AMOUNT (NEGATIVE); BACTERIA, URINE NONE SEEN; RBC, URINE NONE SEEN /hpf (0-3); SQUAMOUS EPITHELIAL CELL URINE SMALL AMOUNT /hpf (SMALL AMT); TRANSITIONAL EPI CELLS, URINE SMALL AMOUNT /hpf
[2017-08-26 17:18] LABS: HYALINE CAST, URINE NONE SEEN /lpf (0-1); MICROSCOPIC EXAM PERFORMED
== END ==
LOC: M SFHCPLAZ 15:01
DX: R10.31 Right lower quadrant pain (principal); M54.6 Pain in thoracic spine
CPT/HCPCS: 80053

== ENCOUNTER → 2017-09-10 | Outpatient (REF) | payer MEDICARE | LOC: M SFHCPLAZ 09:07 | DX: R30.0 Dysuria (principal) | CPT/HCPCS: 87086 ==

== ENCOUNTER → 2017-11-27 | Outpatient (CLI) | payer OTHER, MEDICARE | LOC: M PAIN 08:45 | DX: M96.1 Postlaminectomy syndrome, not elsewhere classified (principal); M46.1 Sacroiliitis, not elsewhere classified; M79.1 Myalgia; J45.909 Unspecified asthma, uncomplicated; F32.9 Major depressive disorder, single episode, unspecified; H40.9 Unspecified glaucoma; F41.9 Anxiety disorder, unspecified; K21.0 Gastro-esophageal reflux disease with esophagitis; M43.16 Spondylolisthesis, lumbar region; D50.9 Iron deficiency anemia, unspecified; Z87.891 Personal history of nicotine dependence; Z79.891 Long term (current) use of opiate analgesic; Z79.899 Other long term (current) drug therapy; Z96.651 Presence of right artificial knee joint; N30.20 Other chronic cystitis without hematuria; Z86.010 Personal history of colon polyps | CPT/HCPCS: G0463 ==

== ENCOUNTER → 2018-04-02 | Outpatient (CLI) | payer OTHER ==
[~2018-04-02] MED LIST changes: +ALPH0.156 OU; +DORZ2OPD OU; +MECL1CHW2 PO; +NITR50CA34 PO; +NITR50CA40 PO; +THERSOL2 OU; +TOPA50TA8 PO; +TRUS1SOL OU; +VALI10TA PO; +VALI5TAB PO; +VENTAER INH
--- NOTE | 2018-04-20 02:00 | ECWPNPC ---
PATIENT NAME: ADY KING : 1955 GENDER: FEMALE VISIT DATE: 04/02/2018 DISCHARGE DATE: 04/02/18 1158 VISIT LOCKED DATE TIME: PHYSICIAN: NASIM GUILLEN RESOURCE: NASIM GUILLEN REASON FOR APPOINTMENT 1. W/C BACK HISTORY OF PRESENT ILLNESS HISTORY OF PRESENT ILLNESS: PAIN THE PATIENT DESCRIBES THE PAIN... THE PATIENT DESCRIBES THE PAIN... THE PATIENT DESCRIBES THE PAIN... THE PATIENT DESCRIBES THE PAIN... THE PATIENT DESCRIBES THE PAIN... THE PATIENT DESCRIBES THE PAIN... THE PATIENT DESCRIBES THE PAIN... 62 YEAR OLD FEMALE PATIENT WITH HISTORY OF CHRONIC LOW BACK PAIN. PATIENT DESCRIBES THE PAIN SHOOTING WITH A PAIN SCORE OF 7/10 AT TODAY'S VISIT. PATIENT WAS INJURED IN A WORK RELATED INJURY. PATIENT STATES THAT SHE HAS TRIED PT IN THE PAST AND IT DID NOT REALLY WORK FOR HER. PATIENT STATES THAT SHE HAS HAD ONE BACK SURGERY IN 05/20/1992. CURRENTLY THE PATIENT IS USING VICODIN, PROTONIX, , AND CYMBALTA WHICH SHE STATES KEEPS HER MOBILE AND FUNCTIONAL.REVIEWED MRI L/S SPINE 03-03-17 WITH PATIENT.SHOWING DEGENERATIVE SPONDYLOSIS CHANGES AT L4/5-L5/S1.DISCUSSED MEDICATION AND TREATMENT OPTIONS. FALL RISK SCREENING: SCREENING :NO FALLS IN THE PAST YEAR CURRENT MEDICATIONS TAKING TOPIRAMATE 50 50MG TABLET 1 TAB ORAL ONCE A DAY TAKING ALBUTEROL SULFATE HFA 108 (90 BASE) MCG/ACT AEROSOL SOLUTION 2 PUFFS NEEDED INHALATION EVERY 4 HRS TAKING ADVAIR DISKUS 100-50 MCG/DOSE MISCELLANEOUS 1 INHALATION DAILY TAKING FERROUS SULFATE 325 (65 FE) MG TABLET 1 TABLET ORALLY ONCE A DAY, NOTES: TAKING QOD TAKING CYCLOBENZAPRINE HCL 10 MG TABLET TAKE ONE TABLET BY MOUTH TWICE A DAY NEEDED FOR SPASM AND PAIN TAKING VICODIN 5-300 MG TABLET 1 TABLET NEEDED FOR PAIN ORALLY FOR PAIN EVERY 8 HRS NEEDED FOR PAIN MDD2 TAKING ATORVASTATIN CALCIUM 20 MG TABLET 1 TABLET ORALLY ONCE A DAY TAKING XALATAN 0.005 % SOLUTION 1 DROP INTO AFFECTED EYE IN THE EVENING OPHTHALMIC ONCE A DAY TAKING PROTONIX 40 MG TABLET DELAYED RELEASE DIRECTED ORALLY BID FOR STOMACH PAIN MDD2 TAKING NITROFURANTOIN MACROCRYSTAL 100 MG CAPSULE 1 CAPSULE WITH FOOD OR MILK ORALLY DAILY TAKING CYMBALTA 30 MG CAPSULE DELAYED RELEASE PARTICLES 1 CAPSULE ORALLY WITH FOOD TWICE A DAY FOR PAIN MDD2 TAKING NORCO 5-325 MG TABLET 1 TABLET NEEDED ORALLY Q8H PRN MDD2 TAKING ADVAIR DISKUS 100-50 MCG/DOSE AEROSOL POWDER BREATH ACTIVATED INHALE ONE PUFF BY MOUTH EVERY 12 HOURS TAKING TOPIRAMATE 50 MG TABLET TAKE ONE TABLET BY MOUTH EVERY DAY TAKING DIAZEPAM 5 MG TABLET 2 TABLETS IN THE MORNING AND 1.5 TABLETS IN THE EVENING NEEDED FOR ANXIETY ORALLY TWICE DAILY DIRECTED MDD#3.5 MEDICATION LIST REVIEWED AND RECONCILED WITH THE PATIENT PAST MEDICAL HISTORY SPONDYLOLITHESI/CHRONIC LOW BACK PAIN - DR. GASTELUM FOR FIBROMYALGIA ASTHMA CHRONIC CYSTITIS HISTORY OF KIDNEY STONES DEPRESSION LEFT INTERNAL CAROTID ANEURYSM - S/P COIL/STENT 01/2012; DR. BURKS GLAUCOMA - DR. GRIGGS ANXIETY WITH DIAZEPAM DEPENDENCE DIVERTICULOSIS REFLUX ESOPHAGITIS CHEMICAL GASTRITIS COLON POLYPS - TUBULAR ADENOMAS IRON DEFICIENCY ANEMIA ALLERGIES N.K.D.A. SURGICAL HISTORY LAMINECTOMY AND DISCECTOMY WITH REMOVAL OF DISC FRAGMENT 05-20-1992 EGD WITH ESOPHAGUS AND STOMACH BIOPSIES 01/2002 CEREBRAL ANEURYSM 2010 APPENDECTOMY COLONOSCOPY - SHOWED INTERNAL/EXTERNAL HEMORRHOIDS, DIVERTICULOSIS; DR. ENGEL; REPEAT Q5Y 07/[address] JOSE INIGUEZ 09/2016 COLONOSCOPY - 2 TUBULAR ADNOMAS - DR. WILLARD; R/P IN 1 YEAR 05/25/2017 EGD - BENIGN GASTRIC POLYPS RESECTED, H. PYLORI NEGATIVE - DR. WILLARD 05/25/2017 FAMILY HISTORY FATHER: , DIAGNOSED WITH HEART DISEASE MOTHER: ALIVE 2 BROTHER(S) , 2 SISTER(S) . 2 SIBLINGS WITH HYPERTENSION. SOCIAL HISTORY GENERAL: TOBACCO USE ARE YOU A:FORMER SMOKER HOW LONG HAS IT BEEN SINCE YOU LAST SMOKED?> 10 YEARS BMI CARE GOAL FOLLOW-UP ABOVE NORMAL BMI FOLLOW-UPGIVING ENCOURAGEMENT TO EXERCISE ALCOHOL SCREENING DID YOU HAVE A DRINK CONTAINING ALCOHOL IN THE PAST YEAR?NO POINTS0 INTERPRETATIONNEGATIVE RECREATIONAL DRUG USE DRUG USE?NO CAFFEINE CAFFEINE USE?NO SEXUAL HX HAD SEX IN THE LAST 12 MONTHS (VAGINAL, ORAL, OR ANAL)?NO HAVE YOU EVER HAD AN STD?NO HIV / HEP-C SCREENING HIV TEST OFFERED TO PATIENT:YES DATE OFFERED:10/09/2016 TEST ACCEPTED:NO HEP-C TEST OFFERED TO PATIENT:YES DATE OFFERED:10/09/2016 REASON:PATIENT DECLINED TEST ACCEPTED:NO REASON:PATIENT DECLINED TEMPLE [id number] CHRISTIAN LANGUAGE LANGUAGES SPOKEN:DANISH EDUCATION LEVEL OF EDUCATION:NOT FINISHED COLLEGE LEARNING BARRIERS / SPECIAL NEEDS CHANGE FROM LAST VISIT?NO BARRIERS TO LEARNING?NO HEARING IMPAIRED?NO VISION IMPAIRED?YES COGNITIVELY IMPAIRED?NO :CORRECTIVE LENSES READINESS TO LEARN?YES LEARNING PREFERENCES?NO LEARNING CAPABILITIES PRESENT?YES EMOTIONAL BARRIERS?NO SPECIAL DEVICES?NO DISPENSING OPTICIAN APPRENTICE NEEDED?NO DOMESTIC VIOLENCE DO YOU FEEL SAFE IN YOUR ENVIRONMENT?YES PAIN CLINIC PFS, CLERGY, PUBLIC HEALTH REFERRALS PFS REFERRAL NEEDED?NO CLERGY REFERRAL NEEDED?NO PUBLIC HEALTH REFERRAL NEEDED?NO WAS THE PROVIDER NOTIFIED OF ANY PERTINENT INFO?NO N/A HAS THE PATIENT BEEN EDUCATED REGARDING HIS/HER PLAN OF CARE?YES HAS THE PATIENT BEEN EDUCATED REGARDING PAIN, THE RISK FOR PAIN, THE IMPORTANCE OF EFFECTIVE PAIN MANAGEMENT, AND THE PAIN ASSESSMENT PROCESS?YES ADVANCE DIRECTIVE ADVANCE DIRECTIVE DISCUSSED WITH PATIENT:YES PT HAS NO HEALTH CARE PROXY, DECLINES ASSISTANCE OR INFORMATION AT THIS TIME REVIEWED WITH PT 08/18/17 0912 BVREVIEWED WITH PT 04/02/18 1121 LAS. HOSPITALIZATION/MAJOR DIAGNOSTIC PROCEDURE SURGERY RELATED REVIEW OF SYSTEMS REVIEWED BY: PROVIDER: NASIM HUYNH . CONSTITUTIONAL: ANY CHANGE IN YOUR MEDICAL CONDITION? PT REPORTS SHE WILL BE HAVING A LEFT KNEE REPLACEMENT 05/12 . CHILLS NO . FEVER NO . INFECTION: DO YOU HAVE NEW INFECTIONS? NO . DO YOU HAVE HISTORY OF MRSA? NO . MUSCULOSKELETAL: ANY NEW PATTERNS OF PAIN OR NUMBNESS? NO . GASTROENTEROLOGY: ANY NEW CHANGE IN BOWEL CONTROL? NO . GENITOURINARY: ANY NEW CHANGE IN BLADDER CONTROL? NO . IS THERE A CHANCE YOU COULD BE ? NO . HEMATOLOGY/LYMPH: DO YOU TAKE ANY BLOOD THINNERS? (FOR EXAMPLE- COUMADIN, PLAVIX, AGGRENOX, PLATEL, PRADAXA, OR XARELTO) NO . WHEN WAS YOUR LAST DOSE? DATE: TIME: . NEUROLOGY: HAVE YOU FALLEN IN THE PAST 6 MONTHS? NO . ANY NEW EXTREMITY NUMBNESS OR WEAKNESS? NO . CARDIOLOGY: DO YOU HAVE A PACEMAKER OR DEFIBRILLATOR? NO . RESPIRATORY: HAVE YOU BEEN SICK IN THE PAST WEEK? NO . FEVER NO . FLU LIKE SYMPTOMS? NO . COUGH NO . INTEGUMENTARY: DO YOU HAVE ANY RASHES OR OPEN SORES? NO . ALLERGIC/IMMUNO: ARE YOU ALLERGIC TO SHELLFISH OR IV DYE? NO . ANY NEW ALLERGIES? NO . PSYCHIATRIC: DO YOU HAVE THOUGHTS OF HURTING YOURSELF OR SOMEONE ELSE? NO . ARE YOU ABUSED, NEGLECTED, OR IN AN UNSAFE ENVIRONMENT? NO . ENDOCRINOLOGY: ARE YOU DIABETIC? NO . OTHER: DO YOU NEED ANY PRESCRIPTIONS? YES . IF YES, PLEASE LIST: ____HYDROCODONE,PROTONIX . ANY NEW PROBLEMS WITH YOUR MEDICATIONS? NO . WHEN DID YOU LAST EAT? ____ . WHEN DID YOU LAST DRINK? ____ . WHAT DID YOU LAST DRINK? ____ . NAME OF PERSON DRIVING YOU HOME? ____ . DO YOU HAVE ANY OTHER QUESTIONS OR CONCERNS NO . VITAL SIGNS WT 205 LBS, HT 66", BMI 33.08 INDEX, BP 120/68 MM HG, HR 100 /MIN, RR 16 /MIN, TEMP 97.2 F, OXYGEN SAT % 96%, NA INITIALS AW 1108, REVIEWED BY: BO. EXAMINATION GENERAL EXAMINATION: GENERAL APPEARANCE:GOOD COLOR, INTERACTING APPROPRIATELY. PSYCHAFFECT NORMAL. LUNGS:LUNG SINHA ARE CLEAR TO AUSCULTATION BILATERALLY. GOOD MOVEMENT OF AIR. HEART:S1, S2 IN A REGULAR RATE AND RHYTHM. NO SIGNIFICANT MURMURS, RUBS OR GALLOPS NOTED. BACK:LUMBAR PARASPINAL TENDERNESS,L/S AXIAL SCAR. MUSCULOSKELETAL:MUSCLE STRENGTH TESTING 5/5 BILATERAL.NORMAL SENSATION BILATERAL LOWER EXTREMITIES. ASSESSMENTS POSTLAMINECTOMY SYNDROME, NOT ELSEWHERE CLASSIFIED - M96.1 (PRIMARY) SACROILIITIS, NOT ELSEWHERE CLASSIFIED - M46.1 MYALGIA - M79.1 TREATMENT POSTLAMINECTOMY SYNDROME, NOT ELSEWHERE CLASSIFIED REFILL NORCO TABLET, 5-325 MG, 1 TABLET NEEDED, ORALLY, Q8H PRN MDD2, 30 DAY(S), 60, REFILLS 0 CONTINUE CYMBALTA CAPSULE DELAYED RELEASE PARTICLES, 30 MG, 1 CAPSULE, ORALLY WITH FOOD, TWICE A DAY FOR PAIN MDD2 REFILL PROTONIX TABLET DELAYED RELEASE, 40 MG, DIRECTED, ORALLY, BID FOR STOMACH PAIN MDD2, 30 DAY(S), 60, REFILLS 2 NOTES: ISTOP REGISTRY REVIEWED AND DEMONSTRATES COMPLLIANCE. (REF #[id number] ) BRINGS IN MEDICATIONS WHICH IS APPROPRIATE FOR WHAT WAS DISPENSED. RECENT URINE TOXICOLOGY REVIEWED. NO UNAUTHORIZED MEDICATIONS. NO ILLICIT SUBSTANCES AND PRESCRIBED MEDICATIONS WERE PRESENT. FORMAL PILL COUNT/ID, RISKS AND BENEFITS OF NARCOTIC/OPIOD MEDICATIONS WERE REVIEWED WITH PATIENT - THIS INCLUDES BUT IS NOT LIMITED TO RISK OF DEPENDANCE/DEVELOPMENT OF ADDICTION, MOOD DISTURBANCE AND DEPRESSION, OSTEOPOROSIS, HORMONAL AND LABIDAL CHANGES, RESPIRATORY DEPRESSION AND . PATIENT IS ADVISED NOT TO DRIVE OR DRINK ALCOHOL WHILE ON THESE MEDICATIONS. PROCEDURES PN WORKMANS' COMP OPINION IN YOUR OPINION, WAS THE INCIDENT THAT THE PATIENT DESCRIBED THE COMPETENT MEDICAL CAUSE OF THIS INJURY/ILLNESS? YES ARE THE PATIENT'S COMPLAINTS CONSISTENT WITH HIS/HER HISTORY OF THE INJURY/ILLNESS? YES IS THE PATIENT'S HISTORY OF THE INJURY/ILLNESS CONSISTENT WITH YOUR OBJECTIVE FINDING? YES WHAT IS THE PERCENTAGE OF TEMPORARY IMPAIRMENT? MODERATE TO MARKED = 66.7% IS THE PATIENT WORKING? NO DOCTOR ON SITE: SHELBI ERAZO MD PROCEDURE CODES FA211 ESTABILISHED PATIENT [facility] CHARGE DISPOSITION & COMMUNICATION FOLLOW UP 3 MONTHS ELECTRONICALLY SIGNED BY LINO WALTON ON 04/19/2018 AT 10:16 AM EST DISCLAIMER : THIS IS A VISIT SUMMARY EXTRACTED FROM THE [employer] CHART. IT IS NOT A COPY OF THE [employer] PROGRESS NOTE. MARCIAL
== END ==
LOC: M PAIN 11:15
PROVIDERS: ATTEND Nurse Practitioner Family
DX: M96.1 Postlaminectomy syndrome, not elsewhere classified (principal); M46.1 Sacroiliitis, not elsewhere classified; M79.7 Fibromyalgia; J45.909 Unspecified asthma, uncomplicated; K21.9 Gastro-esophageal reflux disease without esophagitis; F32.9 Major depressive disorder, single episode, unspecified; F41.9 Anxiety disorder, unspecified; Z79.899 Other long term (current) drug therapy; Z96.651 Presence of right artificial knee joint; Z86.2 Personal history of diseases of the blood and blood-forming organs and certain disorders involving the immune mechanism; Z86.79 Personal history of other diseases of the circulatory system; Z87.891 Personal history of nicotine dependence

== ENCOUNTER → 2018-04-14 | Outpatient (CLI) | payer MEDICARE ==
[2018-04-14 07:44] LABS: HEMATOCRIT 36.9 % (36.0-47.0); HEMOGLOBIN 11.3 g/dl (12.0-15.5); MEAN CORPUSCULAR HGB CONC 30.6 g/dl (32.0-36.5); MEAN CORPUSCULAR VOLUME 78.3 fl (80.0-96.0); PLATELET COUNT, AUTOMATED 286 10^3/uL (150-450); RED BLOOD COUNT 4.71 10^6/uL (4.00-5.40)
[2018-04-14 07:58] LABS: INR 0.95; PROTHROMBIN TIME 12.8 SECONDS (12.1-14.4)
[2018-04-14 08:18] LABS: ALBUMIN 3.6 GM/DL (3.2-5.2); ALT/SGPT 24 U/L (12-78); BILIRUBIN,TOTAL 0.5 MG/DL (0.2-1.0); BLOOD UREA NITROGEN 23 MG/DL (7-18); CALCIUM LEVEL 8.6 MG/DL (8.8-10.2); CARBON DIOXIDE LEVEL 26 MEQ/L (21-32); CHLORIDE LEVEL 109 MEQ/L (98-107); CREATININE FOR GFR 0.74 MG/DL (0.55-1.30); GLOMERULAR FILTRATION RATE > 60.0 (>45); GLUCOSE, FASTING 92 MG/DL (70-100); POTASSIUM SERUM 4.4 MEQ/L (3.5-5.1); SODIUM LEVEL 142 MEQ/L (136-145); TOTAL PROTEIN 6.4 GM/DL (6.4-8.2)
[2018-04-14 08:46] LABS: ERYTHROCYTE SEDIMENTATION RATE 24 mm/hr (0-30)
--- NOTE | 2018-04-14 09:15 | REP ---
Chest two views HISTORY: Left knee arthritis Comparison: 10/03/2016 The lungs are clear. The heart is normal in size. The pulmonary vasculature is normal in appearance. The bony structure is intact. IMPRESSION: No acute disease. Electronically Signed by Yuan De MD 04/14/2018 09:08 A
--- NOTE | 2018-04-15 17:04 | ECGEPIP ---
Stationary ECG Study [facility] Test Date: 2018-04-14 Pat Name: ADY KING Department: Room: - Gender: F Technical Lead: : 1955 Requested By: Contreras Pulliam @ [facility] Order Number: [id number] Reading MD: Janes Calhoun Measurements Intervals [place] Rate: 87 P: 53 W[place]: 160 QRS: -32 QRSD: 109 T: 12 QT: 356 QTc: 430 Interpretive Statements Normal sinus rhythm Left axis deviation Cannot exclude prior inferior wall myocardial infarction Nonspecific T-wave abnormality No significant change since prior tracing of 07/16/2015 Electronically Signed On 04-15-2018 17:04:01 EST by Janes Calhoun
== END ==
LOC: M LAB 07:07
PROVIDERS: ATTEND Orthopaedic Surgery
DX: Z01.818 Encounter for other preprocedural examination (principal); M17.12 Unilateral primary osteoarthritis, left knee; J45.909 Unspecified asthma, uncomplicated; K21.9 Gastro-esophageal reflux disease without esophagitis; R94.31 Abnormal electrocardiogram [ECG] [EKG]

== ENCOUNTER 2018-05-12 06:10 | Inpatient (IN) | payer MEDICARE ==
--- NOTE | 2018-04-26 14:10 | HPE ---
DATE OF ADMISSION: 05/12/2018 HISTORY OF PRESENT ILLNESS: This is a pleasant female with continuing symptomatic left knee osteoarthritis. She has consented for left total knee arthroplasty per Dr. Heraclio Bazan. Medical optimization is scheduled with Dr. Kitchen on 04/21/2018. X-rays are consistent with advanced osteoarthritis. ALLERGIES: None known to drugs. CURRENT MEDICATION LIST: Includes: - Cymbalta 60 mg - atorvastatin calcium 20 mg - nitrofurantoin 100 mg - Protonix 40 mg - diazepam 5 mg - cyclobenzaprine HCL 10 mg - Advair Diskus 100-50 mcg/dose - topiramate 50 mg - albuterol sulfate - Xalatan 0.005% - [place] 5/325 mg - Vicodin 5/300 mg MEDICAL PROBLEM LIST: Symptomatic left knee osteoarthritis. Chronic low back pain with degenerative disc disease. Hypercholesteremia. Fibromyalgia. Chronic interstitial cystitis. Obesity. Gastroesophageal reflux disease. Gastritis. Anxiety. Hyperlipidemia. Lumbago with sciatica. Chronic pain. Paresthesias of both hands. Aneurysm of left internal carotid artery. PAST SURGICAL HISTORY: Knee arthroscopic. Appendectomy. Right ankle. Lumbar spine. FAMILY HISTORY: Hypertension. SOCIAL HISTORY: Former smoker. Denies ethanol intake or illicit drugs. REVIEW OF SYSTEMS: Denies chest pain, shortness of breath, dyspnea on exertion, fever, chills, malaise, upper respiratory or urinary tract symptoms. PHYSICAL EXAMINATION: Blood pressure 137/80. Temperature 99.0. Height 66 inches. Weight 207. Body mass index (BMI) 33.4. Respirations 16. This is a pleasant well-developed, well-nourished obese female in no acute distress. Alert and oriented times three. Mood and affect are appropriate. She is ambulating slow steady favoring of the right lower extremity with crutches. Normocephalic. Neck supple. Negative JVD or bruits. Lungs clear to auscultation. Chest regular rate and rhythm, rises symmetrically. Bowel sounds times four, soft, nontender. Bilateral lower extremities are benign, noninfectious looking supple. Skin is intact. Left knee positive medial joint line tenderness with crepitance about the knee through flexion and extension. PFJ is congruent static and dynamic. Negative popliteal fossa, mass or pain. Labs were reviewed. Showed hemoglobin 11.3, mean corpuscular volume 78.3. Mean corpuscular hemoglobin of 24.0. Mean corpuscular hemoglobin concentration is 30.6. Red cell distribution width 15.3. BUN is 23. Chloride level was 109. Anion gap 7. Calcium level is 8.6. Alk phosphatase 149. Chest x-ray no acute disease as read by Dr. De. EKG normal sinus rhythm, left axis deviation as read by Dr. Janes Calhoun. IMPRESSION: 1. Symptomatic left knee osteoarthritis. 2. Patient consented for left total knee arthroplasty per Dr. Heraclio Bazan. 3. Medical optimization scheduled with Dr. Kitchen 04/21/2018. 4. inbound call center agent to OR 2 grams IV Kefzol in OR. 5. Sequential compression devices (SCD) and thromboembolic deterrent stockings (TEDS) in OR. MTDD
[~2018-05-12] VITALS: Ht 167.6 cm; Wt 101.2 kg
[2018-05-12] VITALS (7 sets, daily range): BP systolic 128–155; BP diastolic 60–78
[2018-05-12] MEDS ORDERED: TRANEXAMIC ACID 100 MG/ML 10ML VIAL As Ordered ONE (06:49)
[2018-05-12] MEDS ORDERED: ceFAZolin 1GM INJ (J0690 PER 500MG) As Ordered ONE (06:50)
[2018-05-12] MEDS ORDERED: BUPIVACAINE LIPOSOME/PF 1.3% 20ML VIAL (13.3MG/ML)(EXPAREL)(C9290 PER1MG) As Ordered ONE (06:50)
[2018-05-12] MEDS ORDERED: EPINEPHrine INJ 1 MG/ML 1ML AMP As Ordered ONE (06:50)
[2018-05-12] MEDS ORDERED: ceFAZolin 2 GM/D5W 50 ML IV BAG (J0690 PER 500MG) As Ordered ONE (06:50)
[2018-05-12] MEDS ORDERED: BUPIVACAINE HCL 0.25% 10 ML VIAL As Ordered ONE ×2 (06:50→07:07)
[2018-05-12] MEDS ORDERED: ACETAMINOPHEN 500 MG TAB As Ordered ONE (06:51)
[2018-05-12] MEDS ORDERED: LIDOCAINE 2% INJ 100 MG/5 ML SDV (FOR ANES.) As Ordered ONE (06:55)
[2018-05-12] MEDS ORDERED: ONDANSETRON 4MG/2ML VIAL (J2405) As Ordered ONE (06:55)
[2018-05-12] MEDS ORDERED: PROPOFOL 200 MG/20 ML VIAL As Ordered ONE (06:55)
[2018-05-12] MEDS ORDERED: fentaNYL 100 MCG/2 ML INJECTION (J3010) As Ordered ONE ×2 (06:56→07:30)
[2018-05-12] MEDS ORDERED: MIDAZOLAM INJ 2 MG/2 ML VIAL (J2250) As Ordered ONE ×3 (06:56→07:54)
[2018-05-12] MEDS ORDERED: ACETAMINOPHEN 500 MG TAB PO ONE (07:00)
[2018-05-12] MEDS ORDERED: LR 1,000 ML IV SCH ×2 (07:15→10:00)
[2018-05-12] MEDS ORDERED: BUPIVACAINE HCL 0.25% 30 ML VIAL As Ordered ONE (07:30)
[2018-05-12] MEDS ORDERED: MIDAZOLAM INJ 2 MG/2 ML VIAL (J2250) IV ONE (07:45)
[2018-05-12] MEDS ORDERED: fentaNYL 100 MCG/2 ML INJECTION (J3010) IV ONE (07:45)
[2018-05-12] MEDS ORDERED: LIDOCAINE 1% MDV 20ML VIAL ONE (08:10)
[2018-05-12] MEDS ORDERED: fentaNYL 100 MCG/2 ML INJECTION (J3010) IV PRN (10:00)
[2018-05-12] MEDS ORDERED: ACETAMINOPHEN TAB 650MG DOSE (2X325MG) PO PRN (10:00)
[2018-05-12] MEDS ORDERED: FLEET ENEMA PR PRN (10:00)
[2018-05-12] MEDS ORDERED: HYDROMORPHONE HCL 0.5 MG/ 0.5 ML SYRINGE (J1170 PER 1) IV PRN ×3 (10:00)
--- NOTE | 2018-05-12 10:44 | REP ---
AP LATERAL LEFT KNEE: 05/12/2018. Clinical history: Postoperative evaluation for total knee arthroplasty. Findings: Two-view show skin rich anteriorly with a left total knee arthroplasty showing all three components aligned in normal relationship to each other and the [place] bone. Typical immediate postoperative findings with some air and fluid in the suprapatellar bursa and subcutaneous edema around the knee. No other finding. Electronically Signed by Oswaldo Duffy MD 05/12/2018 09:15 P
[2018-05-12] MEDS ORDERED: ALBUTEROL 90 MCG/ACT 8GM HFA INHALER INH STA (11:55)
[2018-05-12] MEDS: LR 1,000 ML IV SCH ×2 (13:43→23:51)
[2018-05-12] MEDS ORDERED: ONDANSETRON 4 MG TAB (S0181) PO PRN (14:45)
[2018-05-12] MEDS ORDERED: KETOROLAC 30 MG/ML VIAL (J1885) IV PRN (14:45)
[2018-05-12] MEDS ORDERED: DIAZ5TAB PO (14:47)
--- NOTE | 2018-05-12 14:52 | IPNPDOC ---
Date Seen The patient was seen on 05/12/18. Progress Note SUBJECTIVE: Patient reports feeling well at this time she doesn't she cannot feel her knee had she has no specific complaints OBJECTIVE PHYSICAL EXAMINATION: VITAL SIGNS: Please see below. GENERAL: Morbidly obese female lying flat in bed examined in the PACU she is in no acute distress HEENT: Cranial nerves grossly intact CARDIOVASCULAR: Is 1 S2 regular. RESPIRATORY: Clear to auscultation bilaterally. ABDOMINAL: Obese bowel sounds are present abdomen soft EXTREMITIES: Left knee dressing is Jem bandage clean dry and intact good peripheral pulses distally LABORATORY DATA, IMAGING STUDIES, MICROBIOLOGY: Please see below. DVT prophylaxis ordered?: As per orthopedic surgery ASSESSMENT AND PLAN: This is a 62-year-old female with status post left elective total knee repair arthroplasty postop day 0. PROBLEMS: 1. Elective left total knee arthroplasty postop day 0:. Control DVT prophylaxis physical therapy disposition as per orthopedic surgery. 2. Dyslipidemia: Continue with her home statin. 3. Anxiety and fibromyalgia: Continue with her home Valium would avoid abrupt discontinuation of this continue with her Cymbalta and Topamax. 4. Asthma continue with her home Advair 5. Glaucoma continue with her home Trusopt Alphagan and Xalatan 6. Chronic cystitis: Continue with her home nitrofurantoin dose 7. Chronic pain: Pain management as per orthopedic surgery continue with her Flexeril if okay with orthopedic surgery Thank you for involving us in this interesting patient's care we will continue to follow along with you please call with any specific questions VS, I&O, 24H, Fishbone Vital Signs/I&O Vital Signs Date Time Temp Pulse Resp B/P (MAP) Pulse Ox O2 Delivery O2 Flow Rate FiO2 05/12/18 13:25 18 05/12/18 12:30 84 97 Room Air 05/12/18 11:30 97.1 119/62 (81) 05/12/18 07:13 2 RADHA BENITEZ MD May 12, 2018 14:52
[2018-05-12] MEDS ORDERED: PILL CRUSHER/CUTTER 1 EACH XX PRN (15:15)
[2018-05-12] MEDS ORDERED: traMADol 50 MG TAB PO PRN (16:15)
[2018-05-12] MEDS: traMADol 50 MG TAB PO PRN ×2 (17:38→23:52)
[2018-05-12] MEDS: PANTOPRAZOLE 40MG TAB (PROTONIX) PO SCH (20:07)
[2018-05-12] MEDS: CYCLOBENZAPRINE 10 MG TAB PO SCH (20:07)
[2018-05-12] MEDS: DULoxetine 30 MG CAP (CYMBALTA) PO SCH (20:07)
[2018-05-12] MEDS: BRIMONIDINE 0.15% OPHTH SOLN 5 ML OU SCH (20:08)
[2018-05-12] MEDS ORDERED: diazePAM 5 MG TAB PO SCH (21:00)
[2018-05-12] MEDS ORDERED: LATANOPROST 0.005% OPHTH SOLN 2.5 ML OU SCH (21:00)
[2018-05-12] MEDS ORDERED: MORPHINE 15 MG SA TAB PO SCH (21:00)
[2018-05-12] MEDS ORDERED: diazePAM 10 MG TAB PO SCH (21:00)
[2018-05-12] MEDS: ADVAIR HFA 45/21MCG INHALER INH SCH (21:25)
[2018-05-12] MEDS: ACETAMINOPHEN 500 MG TAB PO SCH (21:51)
[2018-05-13] MEDS: ACETAMINOPHEN 500 MG TAB PO SCH (05:04)
[2018-05-13 06:00] VITALS: BP 137/67
[2018-05-13] MEDS ORDERED: TRAM50TA2 PO (06:06)
[2018-05-13] MEDS ORDERED: XARE10TA PO (06:06)
[2018-05-13 06:19] LABS: HEMATOCRIT 36.4 % (36.0-47.0); HEMOGLOBIN 10.6 g/dl (12.0-15.5); MEAN CORPUSCULAR HGB CONC 29.1 g/dl (32.0-36.5); MEAN CORPUSCULAR VOLUME 79.1 fl (80.0-96.0); PLATELET COUNT, AUTOMATED 240 10^3/uL (150-450); WHITE BLOOD COUNT 8.1 10^3/uL (4.0-10.0)
[2018-05-13 06:33] LABS: BLOOD UREA NITROGEN 16 MG/DL (7-18); CALCIUM LEVEL 8.3 MG/DL (8.8-10.2); CARBON DIOXIDE LEVEL 26 MEQ/L (21-32); CHLORIDE LEVEL 107 MEQ/L (98-107); CREATININE FOR GFR 0.79 MG/DL (0.55-1.30); GLOMERULAR FILTRATION RATE > 60.0 (>45); GLUCOSE, FASTING 106 MG/DL (70-100); SODIUM LEVEL 140 MEQ/L (136-145)
[2018-05-13] MEDS: DULoxetine 30 MG CAP (CYMBALTA) PO SCH (08:40)
[2018-05-13] MEDS: PANTOPRAZOLE 40MG TAB (PROTONIX) PO SCH (08:40)
[2018-05-13] MEDS: traMADol 50 MG TAB PO PRN (08:41)
[2018-05-13] MEDS: CYCLOBENZAPRINE 10 MG TAB PO SCH (08:41)
[2018-05-13] MEDS: BRIMONIDINE 0.15% OPHTH SOLN 5 ML OU SCH (08:42)
[2018-05-13] MEDS ORDERED: diazePAM 5 MG TAB PO SCH (09:00)
[2018-05-13] MEDS ORDERED: MIRALAX *UNIT DOSE* 17GM PACKET PO SCH (09:00)
[2018-05-13] MEDS ORDERED: ATORVASTATIN 20 MG TAB PO SCH (09:00)
[2018-05-13] MEDS ORDERED: TOPIRAMATE (TopAMAX) 25 MG TAB PO SCH (09:00)
[2018-05-13] MEDS ORDERED: MOM 30ML SUSPENSION UDC PO SCH (09:00)
[2018-05-13] MEDS: ADVAIR HFA 45/21MCG INHALER INH SCH (09:15)
--- NOTE | 2018-05-13 09:36 | RO ---
DATE OF PROCEDURE: 05/12/2018 PREPROCEDURE DIAGNOSIS: Left knee degenerative arthritis. POSTPROCEDURE DIAGNOSIS: Left knee degenerative arthritis. PROCEDURE: Left total knee arthroplasty using a size 6 cemented cruciate retaining femoral component with size 6 tibial tray and a 6 mm rotating platform, polyethylene insert, and a 35 mm polyethylene button. All components were cemented. Prosthesis made by [employer]. It was an Attune knee. SURGEON: Contreras Bazan MD SAFETY SITTER: NAE Mares ANESTHESIA: Spinal with left femoral nerve block. COMPLICATIONS: None. ESTIMATED BLOOD LOSS: 20 mL. SPECIMENS: Joint surface. DESCRIPTION OF PROCEDURE: Antibiotics were given intravenously preoperatively and a successful left femoral nerve block, then spinal anesthetic was induced. Tourniquet placed on the left upper thigh and not inflated. Left lower extremity was carefully prepped and draped in the usual sterile fashion. The leg was elevated, and after appropriate time-out, the tourniquet was inflated. A longitudinal incision was made for a medial parapatellar approach to the knee. Bovie cautery used to coagulate the crossing vessels. Subperiosteal dissection around the proximal, medial and lateral tibia plateau was performed. The patella was everted. The anterior cruciate ligament (ACL) was debrided. The knee was flexed. A drill placed down the center of the femoral canal with the intramedullary sunita and the distal femoral cutting jig set at 9 mm resection level at 5 degree valgus for a left knee. The block was pinned into position. Distal femoral cut performed. AP sizing jig measured for a size 6, 3 degrees of rotation was dialed in. Pins were placed. 4-in-1 block applied. The anterior, posterior and chamfer cuts were performed, taking great care to protect the surrounding soft tissues. The notch jig was then applied and the notch osteotomy performed and checked. We then exposed the proximal tibia. Used the extramedullary alignment jig to estimate being parallel to the mechanical axis, referencing off the medial tibial condyle at 4 mm resection level. A secondary check was made with the extramedullary sunita. We confirmed that we appeared to be parallel to the mechanical axis. We then performed the proximal tibial osteotomy. Lamina radio interference expert was then placed laterally and we performed a completion medial meniscectomy with debridement of the posterior medial osteophytes. We then placed the lamina radio interference expert medially and performed a completion lateral meniscectomy with debridement of posterior and lateral. Spacer block was placed and it was a bit snug at 6 mm, both in flexion and in extension. Thus, I reapplied the tibial block and resected 2 more millimeters and this allowed excellent symmetrical stability in flexion and in extension. We then exposed the proximal tibia and sized for a #6 tibial tray, which was pinned into position, followed by the reamer and broach. Trial polyethylene was placed. Trial femoral component fit nicely. Brought the knee into the extension. Everted the patella. Performed patellar osteotomy. Sized for a 35 button. Lug holes drilled. Trial placed. Patellofemoral tracking was anatomic. We drilled the lug holes for the femur. Removed all the trial components and then applied Exparel into the subperiosteal tissues around the distal femur and the proximal tibia. Ms. Amelia Mccall mixed the cement on the back table as I prepared the bony surfaces for cementing with a copious amount of pulsatile lavage irrigant solution. Yazmin Magañashelby was also critical to the success of this difficult surgery by helping to manipulate the knee, help with appropriate soft tissue retraction, helped to close the wound, helped to prepare the patient otherwise, helped to mix the cement, amongst many other tasks to allow me to perform the operation smoothly and efficiently. We then cemented the tibial tray. Removed excess cement. Placed the polyethylene. Cemented the femoral component. Removed excess cement. Brought the knee into extension. Cemented the patellar button. Removed excess cement. Held it with a clamp and held the knee in extension until the cement hardened, as we were awaiting this, we copiously pulsatile lavage, irrigated out the knee joint once again. I then applied tranexamic acid. I then began closing the apex of the arthrotomy with two apex #1 PDS sutures. Medial parapatellar was closed with a #1 PDS suture. We then used a double armed running #1 Stratafix to close the capsule. Tourniquet was released. We copiously irrigated again. Closed the deep subdermal tissues with interrupted #2-0 PDS suture. Skin was closed with rich covered by Optifoam, dry sterile bulky dressing. She was then transferred to the recovery room in stable condition. There were no intraoperative complications.
[2018-05-13] MEDS ORDERED: RIVAROXABAN 10 MG TAB (XARELTO) PO SCH (18:00)
--- NOTE | 2018-05-17 15:00 | DSES ---
DATE OF ADMISSION: 05/12/2018 DATE OF DISCHARGE: 05/13/2018 ATTENDING PHYSICIAN: Dr. Bazan ADMISSION DIAGNOSIS: Osteoarthritis, left knee. OTHER DIAGNOSES: 1. Elevated lipids. 2. Anxiety. 3. Fibromyalgia. 4. Asthma. 5. Glaucoma. 6. Chronic cystitis. 7. Chronic pain. DISCHARGE DIAGNOSIS: Osteoarthritis, left knee status post left total knee arthroplasty. OPERATION PERFORMED: Left total knee arthroplasty. HISTORY: This is a 62-year-old female patient with progressively worsening left knee pain and stiffness. She failed to improve with conservative management. She was admitted for elective knee replacement on the left side. HOSPITAL COURSE: The patient was admitted on the day of surgery and underwent a left total knee arthroplasty which was uneventful. She did well in the postoperative period and her hospital course was without complications. She was up with physical therapy per the protocol and her pain was controlled. On the day of discharge, she was doing well. She was weightbearing as tolerated on the left lower extremity. She will move her left knee to prevent stiffness. She will use oral pain medications for pain control. She will use thromboembolic-deterrent (ADRIANA) stockings for 30 days postoperatively for deep vein thrombosis (DVT) prophylaxis. She will also use Xarelto 10 mg per the protocol for DVT prophylaxis. She will resume her preoperative medications and diet. She will followup in our office in 10-14 days for surgical followup. She was given instructions to include but not limited to wound monitoring and activity limitations. Please refer to the medical record for further details.
== END 2018-05-13 10:20 | disposition home or self-care (01) | DRG 470 ==
LOC: M OR 06:10 → M MS5PR 12:55
PROVIDERS: ADMIT Orthopaedic Surgery; ATTEND Orthopaedic Surgery
PROC: 0SRD0J9 Replacement of Left Knee Joint with Synthetic Substitute, Cemented, Open Approach (ICD-10-PCS; principal; 2018-05-12 09:10)
DX: M17.12 Unilateral primary osteoarthritis, left knee (principal); F13.20 Sedative, hypnotic or anxiolytic dependence, uncomplicated; M51.36 Other intervertebral disc degeneration, lumbar region; E78.00 Pure hypercholesterolemia, unspecified; M79.7 Fibromyalgia; N30.10 Interstitial cystitis (chronic) without hematuria; E66.9 Obesity, unspecified; D50.8 Other iron deficiency anemias; F41.9 Anxiety disorder, unspecified; H40.9 Unspecified glaucoma; K21.0 Gastro-esophageal reflux disease with esophagitis; M43.16 Spondylolisthesis, lumbar region; M96.1 Postlaminectomy syndrome, not elsewhere classified; J45.20 Mild intermittent asthma, uncomplicated; R26.89 Other abnormalities of gait and mobility; E78.5 Hyperlipidemia, unspecified; R20.0 Anesthesia of skin; Z68.33 Body mass index [BMI] 33.0-33.9, adult; Z79.899 Other long term (current) drug therapy; Z90.49 Acquired absence of other specified parts of digestive tract; Z87.891 Personal history of nicotine dependence; Z96.651 Presence of right artificial knee joint

== ENCOUNTER → 2018-07-01 | Outpatient (CLI) | payer OTHER ==
[~2018-07-01] MED LIST changes: -/MOM400 PO; -/PANT40TA PO; +DIAZ5TAB PO; -DULO30CA PO; +DULO30CA9 PO; +MECL1CHW PO; -MECL1CHW2 PO; +MILK10SU PO; +TRAM50TA2 PO; -VICO5TAB16 PO; +VICO5TAB17 PO; +XARE10TA PO
--- NOTE | 2018-07-15 02:19 | ECWPNPC ---
PATIENT NAME: ADY KING : 1955 GENDER: FEMALE VISIT DATE: 07/01/2018 DISCHARGE DATE: 07/01/18958 VISIT LOCKED DATE TIME: PHYSICIAN: NASIM GUILLEN RESOURCE: NASIM GUILLEN DISCLAIMER : THIS IS A VISIT SUMMARY EXTRACTED FROM THE [facility] [employer] CHART. IT IS NOT A COPY OF THE [email or web address] PROGRESS NOTE. MTDD
== END ==
LOC: M PAIN 09:00
PROVIDERS: ATTEND Nurse Practitioner Family
DX: M54.42 Lumbago with sciatica, left side (principal); G89.29 Other chronic pain; M79.7 Fibromyalgia; J45.909 Unspecified asthma, uncomplicated; Z86.59 Personal history of other mental and behavioral disorders; K21.9 Gastro-esophageal reflux disease without esophagitis; D50.9 Iron deficiency anemia, unspecified; Z87.891 Personal history of nicotine dependence; Z79.899 Other long term (current) drug therapy

== ENCOUNTER 2018-07-09 08:05 | Day surgery (SDC) | payer MEDICARE ==
[~2018-07-09] VITALS: Ht 167.6 cm; Wt 95.8 kg
[~2018-07-09 08:05] MED LIST changes: +LIDOCAINE 2% INJ 100 MG/5 ML SDV (FOR ANES.) As Ordered ONE; +NS 1,000 ML IV ONE; +PROPOFOL 200 MG/20 ML VIAL As Ordered ONE
--- NOTE | 2018-07-09 08:50 | ROOR ---
Patient Name: Sherine Martini Procedure Date: 07/09/2018 7:58 AM Date of : 1955 Age: 62 Room: [facility] Gender: Female Note Status: Finalized Procedure: Colonoscopy Indications: High risk colon cancer surveillance: Personal history of colonic polyps Providers: Mauricio Scott MD Referring MD: Danyelle HUERTA DO Requesting Provider: Medicines: Monitored Anesthesia Care Complications: No immediate complications. Procedure: Pre-Anesthesia Assessment: - Prior to the procedure, a History and Physical was performed, and patient medications and allergies were reviewed. The patient is competent. The risks and benefits of the procedure and the sedation options and risks were discussed with the patient. All questions were answered and informed consent was obtained. Patient identification and proposed procedure were verified by the physician, the nurse and the anesthesiologist in the procedure room. Mental Status Examination: alert and oriented. Airway Examination: normal oropharyngeal airway and neck mobility. Respiratory Examination: clear to auscultation. CV Examination: normal. Prophylactic Antibiotics: The patient does not require prophylactic antibiotics. Prior Anticoagulants: The patient has taken no previous anticoagulant or antiplatelet agents. ASA Grade Assessment: III - A patient with severe systemic disease. After reviewing the risks and benefits, the patient was deemed in satisfactory condition to undergo the procedure. The anesthesia plan was to use monitored anesthesia care (MAC). Immediately prior to administration of medications, the patient was re-assessed for adequacy to receive sedatives. The heart rate, respiratory rate, oxygen saturations, blood pressure, adequacy of pulmonary ventilation, and response to care were monitored throughout the procedure. The physical status of the patient was re-assessed after the procedure. The Colonoscope was introduced through the anus and advanced to the terminal ileum, with identification of the appendiceal orifice and IC valve. The colonoscopy was performed without difficulty. The patient tolerated the procedure well. The quality of the bowel preparation was poor except the ascending colon was fair. The ileocecal valve, appendiceal orifice, and rectum were photographed. Scope insertion time was 4 minutes. Scope withdrawal time was 10 minutes. The total duration of the procedure was 14 minutes. Findings: The perianal and digital rectal examinations were normal. A 5 mm polyp was found in the cecum. The polyp was sessile. The polyp was removed with a cold snare. Resection and retrieval were complete. Verification of patient identification for the specimen was done by the physician and nurse using the patient's name, date and medical record number. Estimated blood loss was minimal. Two sessile polyps were found in the ascending colon. The polyps were 5 to 10 mm in size. These polyps were removed with a hot snare. Resection and retrieval were complete. A moderate amount of semi-solid stool was found from sigmoid to transverse colon, interfering with visualization. Non-bleeding external and internal hemorrhoids were found during retroflexion. The hemorrhoids were large. Impression: - One 5 mm polyp in the cecum, removed with a cold snare. Resected and retrieved. - Two 5 to 10 mm polyps in the ascending colon, removed with a hot snare. Resected and retrieved. - Stool from sigmoid to transverse colon. - Non-bleeding external and internal hemorrhoids. Recommendation: - Patient has a contact number available for emergencies. The signs and symptoms of potential delayed complications were discussed with the patient. Return to normal activities tomorrow. Written discharge instructions were provided to the patient. - High fiber diet. - Continue present medications. - Await pathology results. - Repeat colonoscopy in 1 - 3 years because the bowel preparation was poor and for surveillance based on pathology results. - Return to GI clinic in 1 year. - Return to primary care physician. Mauricio Scott MD Mauricio Scott MD 07/09/2018 8:49:56 AM Electronically signed by Mauricio Scott MD Number of Addenda: 0 Note Initiated On: 07/09/2018 7:58 AM Estimated Blood Loss: Estimated blood loss was minimal.
[2018-07-09 08:55] VITALS: BP 122/66
== END 2018-07-09 09:00 | disposition home or self-care (01) ==
LOC: M OPP 08:05
PROVIDERS: ATTEND Internal Medicine Gastroenterology
DX: Z86.010 Personal history of colon polyps (principal); D12.0 Benign neoplasm of cecum; D12.2 Benign neoplasm of ascending colon; K64.8 Other hemorrhoids; G47.30 Sleep apnea, unspecified; Z79.891 Long term (current) use of opiate analgesic; Z79.899 Other long term (current) drug therapy; Z98.84 Bariatric surgery status; Z91.048 Other nonmedicinal substance allergy status; J30.89 Other allergic rhinitis

== ENCOUNTER → 2018-09-30 | Outpatient (CLI) | payer OTHER ==
[~2018-09-30] MED LIST changes: -LIDOCAINE 2% INJ 100 MG/5 ML SDV (FOR ANES.) As Ordered ONE; -NS 1,000 ML IV ONE; -PROPOFOL 200 MG/20 ML VIAL As Ordered ONE
--- NOTE | 2018-10-13 02:18 | ECWPNPC ---
PATIENT NAME: ADY KING : 1955 GENDER: FEMALE VISIT DATE: 09/30/2018 DISCHARGE DATE: 09/30/18906 VISIT LOCKED DATE TIME: PHYSICIAN: NASIM GUILLEN RESOURCE: NASIM GUILLEN REASON FOR APPOINTMENT 1. W/C BACK HISTORY OF PRESENT ILLNESS HISTORY OF PRESENT ILLNESS: PAIN THE PATIENT DESCRIBES THE PAIN... THE PATIENT DESCRIBES THE PAIN... THE PATIENT DESCRIBES THE PAIN... THE PATIENT DESCRIBES THE PAIN... THE PATIENT DESCRIBES THE PAIN... THE PATIENT DESCRIBES THE PAIN... THE PATIENT DESCRIBES THE PAIN... THE PATIENT DESCRIBES THE PAIN... THE PATIENT DESCRIBES THE PAIN... 62 YEAR OLD FEMALE PATIENT WITH HISTORY OF CHRONIC LOW BACK PAIN. PATIENT DESCRIBES THE PAIN SHOOTING WITH A PAIN SCORE OF 8/10 AT TODAY'S VISIT. PATIENT WAS INJURED IN A WORK RELATED INJURY. PATIENT STATES THAT SHE HAS TRIED PT IN THE PAST AND IT DID NOT REALLY WORK FOR HER. PATIENT STATES THAT SHE HAS HAD ONE BACK SURGERY IN 05/20/1992. CURRENTLY THE PATIENT IS USING VICODIN, PROTONIX, , AND CYMBALTA WHICH SHE STATES KEEPS HER MOBILE AND FUNCTIONAL.REVIEWED MRI L/S SPINE 03-03-17 WITH PATIENT.SHOWING DEGENERATIVE SPONDYLOSIS CHANGES AT L4/5-L5/S1.DISCUSSED MEDICATION AND TREATMENT OPTIONS. FALL RISK SCREENING: SCREENING :NO FALLS REPORTED IN THE LAST YEAR CURRENT MEDICATIONS TAKING TOPIRAMATE 50 50MG TABLET 1 TAB ORAL ONCE A DAY TAKING XALATAN 0.005 % SOLUTION 1 DROP INTO AFFECTED EYE IN THE EVENING OPHTHALMIC ONCE A DAY TAKING ALBUTEROL SULFATE HFA 108 (90 BASE) MCG/ACT AEROSOL SOLUTION 2 PUFFS NEEDED INHALATION EVERY 4 HRS TAKING FERROUS SULFATE 325 (65 FE) MG TABLET 1 TABLET ORALLY ONCE A DAY, NOTES: TAKING QOD TAKING ATORVASTATIN CALCIUM 20 MG TABLET 1 TABLET ORALLY ONCE A DAY TAKING CYCLOBENZAPRINE HCL 10 MG TABLET TAKE ONE TABLET BY MOUTH TWICE A DAY NEEDED FOR SPASM AND PAIN TAKING NITROFURANTOIN MACROCRYSTAL 100 MG CAPSULE 1 CAPSULE WITH FOOD OR MILK ORALLY DAILY TAKING ADVAIR DISKUS 100-50 MCG/DOSE AEROSOL POWDER BREATH ACTIVATED 1 PUFF INHALATION TWICE A DAY TAKING DIAZEPAM 5 MG TABLET 2 TABLETS IN THE MORNING AND 1.5 TABLETS IN THE EVENING NEEDED FOR ANXIETY ORALLY TWICE DAILY DIRECTED MDD#3.5 TAKING NORCO 5-325 MG TABLET 1 TABLET NEEDED ORALLY Q8H PRN PAIN MDD2 TAKING CYMBALTA 30 MG CAPSULE DELAYED RELEASE PARTICLES 1 CAPSULE ORALLY WITH FOOD TWICE A DAY FOR PAIN MDD2 TAKING PROTONIX 40 MG TABLET DELAYED RELEASE DIRECTED ORALLY BID FOR STOMACH PAIN MDD2 NOT-TAKING ADVAIR DISKUS 100-50 MCG/DOSE MISCELLANEOUS 1 INHALATION DAILY, NOTES: DUPLICATE MEDICATION LIST REVIEWED AND RECONCILED WITH THE PATIENT PAST MEDICAL HISTORY SPONDYLOLITHESI/CHRONIC LOW BACK PAIN - DR. GASTELUM FOR WC FIBROMYALGIA ASTHMA CHRONIC CYSTITIS HISTORY OF KIDNEY STONES DEPRESSION LEFT INTERNAL CAROTID ANEURYSM - S/P COIL/STENT 01/2012; DR. BURKS GLAUCOMA - DR. GRIGGS ANXIETY WITH DIAZEPAM DEPENDENCE DIVERTICULOSIS REFLUX ESOPHAGITIS CHEMICAL GASTRITIS COLON POLYPS - TUBULAR ADENOMAS IRON DEFICIENCY ANEMIA ALLERGIES SEASONAL IC: RASH - ALLERGY SURGICAL HISTORY LAMINECTOMY AND DISCECTOMY WITH REMOVAL OF DISC FRAGMENT 05-20-1992 EGD WITH ESOPHAGUS AND STOMACH BIOPSIES 01/2002 CEREBRAL ANEURYSM 2010 APPENDECTOMY COLONOSCOPY - SHOWED INTERNAL/EXTERNAL HEMORRHOIDS, DIVERTICULOSIS; DR. EGNEL; REPEAT Q5Y 07/[address] JOSE INIGUEZ 09/2016 COLONOSCOPY - 2 TUBULAR ADNOMAS - DR. WILLARD; R/P IN 1 YEAR 05/25/2017 EGD - BENIGN GASTRIC POLYPS RESECTED, H. PYLORI NEGATIVE - DR. WILLARD 05/25/2017 LEFT KNEE REPLACEMENT 04/2018 FAMILY HISTORY FATHER: , DIAGNOSED WITH HEART DISEASE MOTHER: ALIVE 2 BROTHER(S) , 2 SISTER(S) . 2 SIBLINGS WITH HYPERTENSION. SOCIAL HISTORY GENERAL: TOBACCO USE ARE YOU A:FORMER SMOKER HOW LONG HAS IT BEEN SINCE YOU LAST SMOKED?> 10 YEARS HIV / HEP-C SCREENING HIV TEST OFFERED TO PATIENT:YES DATE OFFERED:10/09/2016 TEST ACCEPTED:NO HEP-C TEST OFFERED TO PATIENT:YES DATE OFFERED:10/09/2016 REASON:PATIENT DECLINED TEST ACCEPTED:NO REASON:PATIENT DECLINED EDUCATION LEVEL OF EDUCATION:NOT FINISHED COLLEGE LANGUAGE LANGUAGES SPOKEN:GHANAIAN DOMESTIC VIOLENCE DO YOU FEEL SAFE IN YOUR ENVIRONMENT?YES BMI CARE GOAL FOLLOW-UP ABOVE NORMAL BMI FOLLOW-UPGIVING ENCOURAGEMENT TO EXERCISE RECREATIONAL DRUG USE DRUG USE?NO LEARNING BARRIERS / SPECIAL NEEDS CHANGE FROM LAST VISIT?NO BARRIERS TO LEARNING?NO HEARING IMPAIRED?NO VISION IMPAIRED?YES COGNITIVELY IMPAIRED?NO :CORRECTIVE LENSES READINESS TO LEARN?YES LEARNING PREFERENCES?NO LEARNING CAPABILITIES PRESENT?YES EMOTIONAL BARRIERS?NO SPECIAL DEVICES?NO SENIOR ELECTRONICS TECHNICIAN NEEDED?NO PAIN CLINIC PFS, CLERGY, PUBLIC HEALTH REFERRALS PFS REFERRAL NEEDED?NO CLERGY REFERRAL NEEDED?NO PUBLIC HEALTH REFERRAL NEEDED?NO WAS THE PROVIDER NOTIFIED OF ANY PERTINENT INFO?YES N/A HAS THE PATIENT BEEN EDUCATED REGARDING HIS/HER PLAN OF CARE?YES HAS THE PATIENT BEEN EDUCATED REGARDING PAIN, THE RISK FOR PAIN, THE IMPORTANCE OF EFFECTIVE PAIN MANAGEMENT, AND THE PAIN ASSESSMENT PROCESS?YES LATEX QUESTIONNAIRE LATEX ALLERGY : HAVE YOU EVER DEVELOPED ANY TYPE OF REACTION AFTER HANDLING LATEX PRODUCTS SUCH RUBBER GLOVES, CONDOMS, DIAPHRAGMS, BALLOONS, SOCKS, OR UNDERWEAR?NO LATEX ALLERGY : HAVE YOU EVER DEVELOPED ANY TYPE OF REACTION DURING OR AFTER DENTAL APPOINTMENT, VAGINAL/RECTAL EXAMINATION, SURGICAL PROCEDURE, OR ANY OTHER EXPOSURE?NO LATEX RISK : HAVE YOU EVER HAD ANY DIFFICULTY BREATHING OR HIVES AFTER EATING OR HANDLING ANY FRUITS, OR VEGETABLES; SUCH KIWI, BANANAS, STONE FRUITS, OR CHESTNUTSNO LATEX RISK : DO YOU HAVE A PREVIOUS PERSONAL HISTORY OF MORE THAN NINE SURGERIES, SPINA BIFIDA, OR REPEATED CATHERIZATIONS? YES - PLEASE INDICATE : > 9 SURGERIES LATEX RISK : ARE YOU FREQUENTLY EXPOSED TO LATEX PRODUCTS IN YOUR OCCUPATION?NO DATE ASKED : 09/30/2018 CAFFEINE CAFFEINE USE?NO ADVANCE DIRECTIVE ADVANCE DIRECTIVE DISCUSSED WITH PATIENT:YES PT HAS NO HEALTH CARE PROXY, DECLINES ASSISTANCE OR INFORMATION AT THIS TIME, DECLINES ASSISTANCE AT THIS TIME YARSANI [id number] CHRISTIANITY ALCOHOL SCREENING DID YOU HAVE A DRINK CONTAINING ALCOHOL IN THE PAST YEAR?NO POINTS0 INTERPRETATIONNEGATIVE SEXUAL HX HAD SEX IN THE LAST 12 MONTHS (VAGINAL, ORAL, OR ANAL)?NO HAVE YOU EVER HAD AN STD?NO REVIEWED WITH PT 08/18/17 0912 BVREVIEWED WITH PT 04/02/18 1121 LASREVIEWED WITH PATIENT 07/01/18 0930 JS. HOSPITALIZATION/MAJOR DIAGNOSTIC PROCEDURE SURGERY RELATED REVIEW OF SYSTEMS REVIEWED BY: PROVIDER: NASIM HUYNH . CONSTITUTIONAL: ANY CHANGE IN YOUR MEDICAL CONDITION? NO . CHILLS NO . FEVER NO . INFECTION: DO YOU HAVE NEW INFECTIONS? NO . DO YOU HAVE HISTORY OF MRSA? NO . MUSCULOSKELETAL: ANY NEW PATTERNS OF PAIN OR NUMBNESS? NO . GASTROENTEROLOGY: ANY NEW CHANGE IN BOWEL CONTROL? NO . GENITOURINARY: ANY NEW CHANGE IN BLADDER CONTROL? NO . IS THERE A CHANCE YOU COULD BE ? NO . HEMATOLOGY/LYMPH: DO YOU TAKE ANY BLOOD THINNERS? (FOR EXAMPLE- COUMADIN, PLAVIX, AGGRENOX, PLATEL, PRADAXA, OR XARELTO) NO . WHEN WAS YOUR LAST DOSE? DATE: TIME: . NEUROLOGY: HAVE YOU FALLEN IN THE PAST 12 MONTHS? NO . ANY NEW EXTREMITY NUMBNESS OR WEAKNESS? NO . CARDIOLOGY: DO YOU HAVE A PACEMAKER OR DEFIBRILLATOR? NO . RESPIRATORY: HAVE YOU BEEN SICK IN THE PAST WEEK? NO . FEVER NO . FLU LIKE SYMPTOMS? NO . COUGH NO . INTEGUMENTARY: DO YOU HAVE ANY RASHES OR OPEN SORES? NO . ALLERGIC/IMMUNO: ARE YOU ALLERGIC TO IV DYE? NO . ANY NEW ALLERGIES? YES, HAY FEVER, SEASONAL ALLERGIES . PSYCHIATRIC: DO YOU HAVE THOUGHTS OF HURTING YOURSELF OR SOMEONE ELSE? NO . ARE YOU ABUSED, NEGLECTED, OR IN AN UNSAFE ENVIRONMENT? NO . ENDOCRINOLOGY: ARE YOU DIABETIC? NO . OTHER: DO YOU NEED ANY PRESCRIPTIONS? YES, HYDROCODONE . IF YES, PLEASE LIST: ____ . ANY NEW PROBLEMS WITH YOUR MEDICATIONS? NO . WHEN DID YOU LAST EAT? ____ . WHEN DID YOU LAST DRINK? ____ . WHAT DID YOU LAST DRINK? ____ . NAME OF PERSON DRIVING YOU HOME? ____ . DO YOU HAVE ANY OTHER QUESTIONS OR CONCERNS NO . VITAL SIGNS WT 219 LBS, HT 66", BMI 35.34 INDEX, BP 145/90 MM HG, HR 111 /MIN, RR 18 /MIN, TEMP 96.2 F, OXYGEN SAT % 96%, SAFE IN ENV? (Y/N) Y, NA INITIALS AK 08:36, REVIEWED BY: ROSA. EXAMINATION GENERAL EXAMINATION: GENERALGOOD COLOR, INTERACTING APPROPRIATELY. PSYCHAFFECT NORMAL. LUNGS:LUNG SINHA ARE CLEAR TO AUSCULTATION BILATERALLY. GOOD MOVEMENT OF AIR. HEART:S1, S2 IN A REGULAR RATE AND RHYTHM. NO SIGNIFICANT MURMURS, RUBS OR GALLOPS NOTED. BACK:LUMBAR PARASPINAL TENDERNESS,L/S AXIAL SCAR. MUSCULOSKELETAL:MUSCLE STRENGTH TESTING 5/5 BILATERAL.NORMAL SENSATION BILATERAL LOWER EXTREMITIES. ASSESSMENTS LUMBAGO WITH SCIATICA, LEFT SIDE - M54.42 (PRIMARY) REFLUX ESOPHAGITIS - K21.0 TREATMENT LUMBAGO WITH SCIATICA, LEFT SIDE REFILL NORCO TABLET, 5-325 MG, 1 TABLET NEEDED, ORALLY, Q8H PRN PAIN MDD2, 30 DAY(S), 60, REFILLS 0 REFILL CYMBALTA CAPSULE DELAYED RELEASE PARTICLES, 30 MG, 1 CAPSULE, ORALLY WITH FOOD, TWICE A DAY FOR PAIN MDD2, 30 DAYS, 60, REFILLS 1 REFILL PROTONIX TABLET DELAYED RELEASE, 40 MG, DIRECTED, ORALLY, BID FOR STOMACH PAIN MDD2, 30 DAYS, 60, REFILLS 0 NOTES: ISTOP REGISTRY REVIEWED AND DEMONSTRATES COMPLLIANCE. (REF # ) BRINGS IN MEDICATIONS WHICH IS APPROPRIATE FOR WHAT WAS DISPENSED. RECENT URINE TOXICOLOGY REVIEWED. NO UNAUTHORIZED MEDICATIONS. NO ILLICIT SUBSTANCES AND PRESCRIBED MEDICATIONS WERE PRESENT. , RISKS AND BENEFITS OF NARCOTIC/OPIOD MEDICATIONS WERE REVIEWED WITH PATIENT - THIS INCLUDES BUT IS NOT LIMITED TO RISK OF DEPENDANCE/DEVELOPMENT OF ADDICTION, MOOD DISTURBANCE AND DEPRESSION, OSTEOPOROSIS, HORMONAL AND LABIDAL CHANGES, RESPIRATORY DEPRESSION AND . PATIENT IS ADVISED NOT TO DRIVE OR DRINK ALCOHOL WHILE ON THESE MEDICATIONS. PROCEDURES PN WORKMANS' COMP OPINION IN YOUR OPINION, WAS THE INCIDENT THAT THE PATIENT DESCRIBED THE COMPETENT MEDICAL CAUSE OF THIS INJURY/ILLNESS? YES ARE THE PATIENT'S COMPLAINTS CONSISTENT WITH HIS/HER HISTORY OF THE INJURY/ILLNESS? YES IS THE PATIENT'S HISTORY OF THE INJURY/ILLNESS CONSISTENT WITH YOUR OBJECTIVE FINDING? YES WHAT IS THE PERCENTAGE OF TEMPORARY IMPAIRMENT? MODERATE TO MARKED = 66.7% IS THE PATIENT WORKING? NO DOCTOR ON SITE: SHELBI ERAZO MD PROCEDURE CODES FA211 ESTABILISHED PATIENT [facility] CHARGE DISPOSITION & COMMUNICATION FOLLOW UP 3 MONTHS (REASON: MED MGMNT) ELECTRONICALLY SIGNED BY LINO WALTON ON 10/11/2018 AT 11:26 AM EDT DISCLAIMER : THIS IS A VISIT SUMMARY EXTRACTED FROM THE [employer] CHART. IT IS NOT A COPY OF THE [employer] PROGRESS NOTE. MARCIAL
== END ==
LOC: M PAIN 09:00
PROVIDERS: ATTEND Nurse Practitioner Family
DX: M54.42 Lumbago with sciatica, left side (principal); K21.0 Gastro-esophageal reflux disease with esophagitis; M79.7 Fibromyalgia; J45.909 Unspecified asthma, uncomplicated; N30.10 Interstitial cystitis (chronic) without hematuria; F32.9 Major depressive disorder, single episode, unspecified; H40.9 Unspecified glaucoma; F41.9 Anxiety disorder, unspecified; D50.9 Iron deficiency anemia, unspecified; Z86.010 Personal history of colon polyps; Z87.442 Personal history of urinary calculi; Z87.891 Personal history of nicotine dependence; Z79.891 Long term (current) use of opiate analgesic; Z79.899 Other long term (current) drug therapy

== ENCOUNTER → 2018-11-19 | Outpatient (CLI) | payer MEDICARE ==
[~2018-11-19] MED LIST changes: +NITR1CAP27 PO; -NITR50CA40 PO
[2018-11-19 13:06] LABS: BASO # 0.1 10^3/uL (0.0-0.2); BASO % 1.2 % (0.0-1.0); EOS # 0.2 10^3/uL (0.0-0.50); HEMATOCRIT 43.3 % (36.0-47.0); HEMOGLOBIN 13.1 g/dl (12.0-15.5); LYMPH # 1.7 10^3/uL (1.5-4.5); LYMPH % 28.5 % (24.0-44.0); MEAN CORPUSCULAR HEMOGLOBIN 24.8 pg (27.0-33.0); MEAN CORPUSCULAR HGB CONC 30.3 g/dl (32.0-36.5); MONO # 0.5 10^3/uL (0.0-0.8); MONO % 7.8 % (0.0-5.0); NEUTROPHILS # 3.5 10^3/uL (1.8-7.7); NEUTROPHILS % 58.3 % (36.0-66.0); PLATELET COUNT, AUTOMATED 273 10^3/uL (150-450); RED BLOOD COUNT 5.28 10^6/uL (4.00-5.40)
[2018-11-19 13:35] LABS: ALBUMIN 3.8 GM/DL (3.2-5.2); ALT/SGPT 23 U/L (12-78); AMYLASE 41 U/L (25-115); BILIRUBIN,TOTAL 0.7 MG/DL (0.2-1.0); BLOOD UREA NITROGEN 17 MG/DL (7-18); CALCIUM LEVEL 9.1 MG/DL (8.8-10.2); CARBON DIOXIDE LEVEL 23 MEQ/L (21-32); CHLORIDE LEVEL 110 MEQ/L (98-107); GLOMERULAR FILTRATION RATE > 60.0 (>45); GLUCOSE, FASTING 98 MG/DL (70-100); LIPASE 106 U/L (73-393); POTASSIUM SERUM 4.3 MEQ/L (3.5-5.1); SODIUM LEVEL 145 MEQ/L (136-145); TOTAL PROTEIN 6.9 GM/DL (6.4-8.2)
[2018-11-19 20:08] LABS: % LABILE ALKALINE PHOSPHATASE 81.3 %; LABILE ALKPHOS 122 U/L; STABLE ALKPHOS 28 U/L
== END ==
LOC: M SMT 11:19
PROVIDERS: ATTEND Family Medicine
DX: R10.2 Pelvic and perineal pain (principal); R10.31 Right lower quadrant pain; R10.32 Left lower quadrant pain

== ENCOUNTER → 2018-12-29 | Outpatient (CLI) | payer OTHER ==
[~2018-12-29] MED LIST changes: -NITR1CAP27 PO; +NITR50CA40 PO
== END ==
LOC: M PAIN 09:00
PROVIDERS: ATTEND Nurse Practitioner Family
DX: M54.42 Lumbago with sciatica, left side (principal); G89.29 Other chronic pain; M79.7 Fibromyalgia; J45.909 Unspecified asthma, uncomplicated; Z86.59 Personal history of other mental and behavioral disorders; K21.9 Gastro-esophageal reflux disease without esophagitis; D50.9 Iron deficiency anemia, unspecified; Z96.652 Presence of left artificial knee joint; Z87.891 Personal history of nicotine dependence; Z79.899 Other long term (current) drug therapy

== ENCOUNTER → 2019-03-31 | Outpatient (CLI) | payer OTHER ==
[~2019-03-31] MED LIST changes: +NITR1CAP27 PO; -NITR50CA40 PO
--- NOTE | 2019-04-13 06:27 | ECWPNPC ---
PATIENT NAME: ADY KING : 1955 GENDER: FEMALE VISIT DATE: 03/31/2019 DISCHARGE DATE: 03/31/19 1023 VISIT LOCKED DATE TIME: PHYSICIAN: NASIM GUILLEN RESOURCE: NASIM GUILLEN REASON FOR APPOINTMENT 1. W/C MED MNGMNT HISTORY OF PRESENT ILLNESS HISTORY OF PRESENT ILLNESS: PAIN THE PATIENT DESCRIBES THE PAIN... 62 YEAR OLD FEMALE PATIENT WITH HISTORY OF CHRONIC LOW BACK PAIN. PATIENT DESCRIBES THE PAIN SHOOTING WITH A PAIN SCORE OF 7/10 AT TODAY'S VISIT. PATIENT WAS INJURED IN A WORK RELATED INJURY. PATIENT STATES THAT SHE HAS TRIED PT IN THE PAST AND IT DID NOT REALLY WORK FOR HER. PATIENT STATES THAT SHE HAS HAD ONE BACK SURGERY IN 05/20/1992. CURRENTLY THE PATIENT IS USING VICODIN, PROTONIX, , AND CYMBALTA WHICH SHE STATES KEEPS HER MOBILE AND FUNCTIONAL.DISCUSSED MEDICATION AND TREATMENT OPTIONS. FALL RISK SCREENING: SCREENING :NO FALLS REPORTED IN THE LAST YEAR CURRENT MEDICATIONS TAKING TOPIRAMATE 50 50MG TABLET 1 TAB ORAL ONCE A DAY TAKING XALATAN 0.005 % SOLUTION 1 DROP INTO AFFECTED EYE IN THE EVENING OPHTHALMIC ONCE A DAY TAKING ALBUTEROL SULFATE HFA 108 (90 BASE) MCG/ACT AEROSOL SOLUTION 2 PUFFS NEEDED INHALATION EVERY 4 HRS TAKING FERROUS SULFATE 325 (65 FE) MG TABLET 1 TABLET ORALLY ONCE A DAY, NOTES: TAKING QOD TAKING ATORVASTATIN CALCIUM 20 MG TABLET 1 TABLET ORALLY ONCE A DAY TAKING CYCLOBENZAPRINE HCL 10 MG TABLET TAKE ONE TABLET BY MOUTH TWICE A DAY NEEDED FOR SPASM AND PAIN TAKING NITROFURANTOIN MACROCRYSTAL 100 MG CAPSULE 1 CAPSULE WITH FOOD OR MILK ORALLY DAILY TAKING ADVAIR DISKUS 100-50 MCG/DOSE AEROSOL POWDER BREATH ACTIVATED 1 PUFF INHALATION TWICE A DAY TAKING DIAZEPAM 5 MG TABLET 2 TABLETS IN THE MORNING AND 1.5 TABLETS IN THE EVENING NEEDED FOR ANXIETY ORALLY TWICE DAILY DIRECTED MDD#3.5 TAKING CYMBALTA 30 MG CAPSULE DELAYED RELEASE PARTICLES 1 CAPSULE ORALLY WITH FOOD TWICE A DAY FOR PAIN MDD2 TAKING PROTONIX 40 MG TABLET DELAYED RELEASE DIRECTED ORALLY BID FOR STOMACH PAIN MDD2 TAKING NORCO 5-325 MG TABLET 1 TABLET NEEDED ORALLY Q8H PRN PAIN MDD2 NOT-TAKING ADVAIR DISKUS 100-50 MCG/DOSE MISCELLANEOUS 1 INHALATION DAILY, NOTES: DUPLICATE MEDICATION LIST REVIEWED AND RECONCILED WITH THE PATIENT PAST MEDICAL HISTORY SPONDYLOLITHESI/CHRONIC LOW BACK PAIN - DR. GASTELUM FOR WC FIBROMYALGIA ASTHMA CHRONIC CYSTITIS HISTORY OF KIDNEY STONES DEPRESSION LEFT INTERNAL CAROTID ANEURYSM - S/P COIL/STENT 01/2012; DR. BURKS GLAUCOMA - DR. GRIGGS ANXIETY WITH DIAZEPAM DEPENDENCE DIVERTICULOSIS REFLUX ESOPHAGITIS CHEMICAL GASTRITIS COLON POLYPS - TUBULAR ADENOMAS IRON DEFICIENCY ANEMIA ALLERGIES SEASONAL IC: RASH - ALLERGY SURGICAL HISTORY LAMINECTOMY AND DISCECTOMY WITH REMOVAL OF DISC FRAGMENT 05-20-1992 EGD WITH ESOPHAGUS AND STOMACH BIOPSIES 01/2002 CEREBRAL ANEURYSM 2010 APPENDECTOMY COLONOSCOPY - SHOWED INTERNAL/EXTERNAL HEMORRHOIDS, DIVERTICULOSIS; DR. ENGEL; REPEAT Q5Y 07/[address] JOSE INIGUEZ 09/2016 COLONOSCOPY - 2 TUBULAR ADNOMAS - DR. WILLARD; R/P IN 1 YEAR 05/25/2017 EGD - BENIGN GASTRIC POLYPS RESECTED, H. PYLORI NEGATIVE - DR. WILLARD 05/25/2017 LEFT KNEE REPLACEMENT 04/2018 FAMILY HISTORY FATHER: , DIAGNOSED WITH UNSPECIFIED HEART DISEASE MOTHER: ALIVE 2 BROTHER(S) , 2 SISTER(S) . 2 SIBLINGS WITH HYPERTENSION. SOCIAL HISTORY GENERAL: TOBACCO USE ARE YOU A:FORMER SMOKER HOW LONG HAS IT BEEN SINCE YOU LAST SMOKED?> 10 YEARS HIV / HEP-C SCREENING HIV TEST OFFERED TO PATIENT:YES DATE OFFERED:10/09/2016 TEST ACCEPTED:NO HEP-C TEST OFFERED TO PATIENT:YES DATE OFFERED:10/09/2016 REASON:PATIENT DECLINED TEST ACCEPTED:NO REASON:PATIENT DECLINED EDUCATION LEVEL OF EDUCATION:NOT FINISHED COLLEGE LANGUAGE LANGUAGES SPOKEN:HONDURAN DOMESTIC VIOLENCE DO YOU FEEL SAFE IN YOUR ENVIRONMENT?YES BMI CARE GOAL FOLLOW-UP ABOVE NORMAL BMI FOLLOW-UPGIVING ENCOURAGEMENT TO EXERCISE RECREATIONAL DRUG USE DRUG USE?NO LEARNING BARRIERS / SPECIAL NEEDS CHANGE FROM LAST VISIT?NO BARRIERS TO LEARNING?NO HEARING IMPAIRED?NO VISION IMPAIRED?YES COGNITIVELY IMPAIRED?NO :CORRECTIVE LENSES READINESS TO LEARN?YES LEARNING PREFERENCES?NO LEARNING CAPABILITIES PRESENT?YES EMOTIONAL BARRIERS?NO SPECIAL DEVICES?NO ENROLLMENT ADVISOR NEEDED?NO PAIN CLINIC PFS, CLERGY, PUBLIC HEALTH REFERRALS PFS REFERRAL NEEDED?NO CLERGY REFERRAL NEEDED?NO PUBLIC HEALTH REFERRAL NEEDED?NO WAS THE PROVIDER NOTIFIED OF ANY PERTINENT INFO?YES N/A HAS THE PATIENT BEEN EDUCATED REGARDING HIS/HER PLAN OF CARE?YES HAS THE PATIENT BEEN EDUCATED REGARDING PAIN, THE RISK FOR PAIN, THE IMPORTANCE OF EFFECTIVE PAIN MANAGEMENT, AND THE PAIN ASSESSMENT PROCESS?YES LATEX QUESTIONNAIRE LATEX ALLERGY : HAVE YOU EVER DEVELOPED ANY TYPE OF REACTION AFTER HANDLING LATEX PRODUCTS SUCH RUBBER GLOVES, CONDOMS, DIAPHRAGMS, BALLOONS, SOCKS, OR UNDERWEAR?NO LATEX ALLERGY : HAVE YOU EVER DEVELOPED ANY TYPE OF REACTION DURING OR AFTER DENTAL APPOINTMENT, VAGINAL/RECTAL EXAMINATION, SURGICAL PROCEDURE, OR ANY OTHER EXPOSURE?NO LATEX RISK : HAVE YOU EVER HAD ANY DIFFICULTY BREATHING OR HIVES AFTER EATING OR HANDLING ANY FRUITS, OR VEGETABLES; SUCH KIWI, BANANAS, STONE FRUITS, OR CHESTNUTSNO LATEX RISK : DO YOU HAVE A PREVIOUS PERSONAL HISTORY OF MORE THAN NINE SURGERIES, SPINA BIFIDA, OR REPEATED CATHERIZATIONS? YES - PLEASE INDICATE : > 9 SURGERIES LATEX RISK : ARE YOU FREQUENTLY EXPOSED TO LATEX PRODUCTS IN YOUR OCCUPATION?NO DATE ASKED : 09/30/2018 CAFFEINE CAFFEINE USE?NO ADVANCE DIRECTIVE ADVANCE DIRECTIVE DISCUSSED WITH PATIENT:YES 03/31/2019 PATIENT GIVEN INFORMATION ON HCP AT THIS TIME, DECLINES ASSISTANCE IN FILLING OUT FORM. JS BAPTISM [id number] MU-ISM ALCOHOL SCREENING DID YOU HAVE A DRINK CONTAINING ALCOHOL IN THE PAST YEAR?NO POINTS0 INTERPRETATIONNEGATIVE SEXUAL HX HAD SEX IN THE LAST 12 MONTHS (VAGINAL, ORAL, OR ANAL)?NO HAVE YOU EVER HAD AN STD?NO REVIEWED WITH PT 08/18/17 0912 BVREVIEWED WITH PT 04/02/18 1121 LASREVIEWED WITH PATIENT 07/01/18 0930 JSREVIEWED WITH PATIENT 03/31/2019 0950 JS. HOSPITALIZATION/MAJOR DIAGNOSTIC PROCEDURE SURGERY RELATED REVIEW OF SYSTEMS REVIEWED BY: PROVIDER: NASIM HUYNH . CONSTITUTIONAL: ANY CHANGE IN YOUR MEDICAL CONDITION? NO . CHILLS NO . FEVER NO . INFECTION: DO YOU HAVE NEW INFECTIONS? NO . DO YOU HAVE HISTORY OF MRSA? NO . MUSCULOSKELETAL: ANY NEW PATTERNS OF PAIN OR NUMBNESS? NO . GASTROENTEROLOGY: ANY NEW CHANGE IN BOWEL CONTROL? NO . GENITOURINARY: ANY NEW CHANGE IN BLADDER CONTROL? NO . IS THERE A CHANCE YOU COULD BE ? NO . HEMATOLOGY/LYMPH: DO YOU TAKE ANY BLOOD THINNERS? (FOR EXAMPLE- COUMADIN, PLAVIX, AGGRENOX, PLATEL, PRADAXA, OR XARELTO) NO . WHEN WAS YOUR LAST DOSE? DATE: TIME: . NEUROLOGY: HAVE YOU FALLEN IN THE PAST 12 MONTHS? NO . ANY NEW EXTREMITY NUMBNESS OR WEAKNESS? NO . CARDIOLOGY: DO YOU HAVE A PACEMAKER OR DEFIBRILLATOR? NO . RESPIRATORY: HAVE YOU BEEN SICK IN THE PAST WEEK? NO . FEVER NO . FLU LIKE SYMPTOMS? NO . COUGH NO . INTEGUMENTARY: DO YOU HAVE ANY RASHES OR OPEN SORES? NO . ALLERGIC/IMMUNO: ARE YOU ALLERGIC TO IV DYE? NO . ANY NEW ALLERGIES? YES - STATES NO NEW ALLERGIES, JUST THAT SHE HAS ALLERGIES . PSYCHIATRIC: DO YOU HAVE THOUGHTS OF HURTING YOURSELF OR SOMEONE ELSE? NO . ARE YOU ABUSED, NEGLECTED, OR IN AN UNSAFE ENVIRONMENT? NO . ENDOCRINOLOGY: ARE YOU DIABETIC? NO . OTHER: DO YOU NEED ANY PRESCRIPTIONS? YES . IF YES, PLEASE LIST: ____NORCO, CYMBALTA, PROTONIX . ANY NEW PROBLEMS WITH YOUR MEDICATIONS? NO . WHEN DID YOU LAST EAT? ____ . WHEN DID YOU LAST DRINK? ____ . WHAT DID YOU LAST DRINK? ____ . NAME OF PERSON DRIVING YOU HOME? ____ . DO YOU HAVE ANY OTHER QUESTIONS OR CONCERNS NO . VITAL SIGNS WT 219.6 LBS, HT 66", BMI 35.44 INDEX, BP 128/74 MM HG, HR 102 /MIN, RR 18 /MIN, TEMP 97.0 F, OXYGEN SAT % 98%, SAFE IN ENV? (Y/N) YES, NA INITIALS AW 0940, REVIEWED BY: HITESH. EXAMINATION GENERAL EXAMINATION: GENERAL AWAKE,ALERT ,PLEASANT . PSYCH AFFECT NORMAL . LUNGS: LUNG SINHA ARE CLEAR TO AUSCULTATION BILATERALLY. GOOD MOVEMENT OF AIR . HEART: S1, S2 IN A REGULAR RATE AND RHYTHM. NO SIGNIFICANT MURMURS, RUBS OR GALLOPS NOTED . ASSESSMENTS LUMBAGO WITH SCIATICA, LEFT SIDE - M54.42 (PRIMARY) TREATMENT LUMBAGO WITH SCIATICA, LEFT SIDE REFILL NORCO TABLET, 5-325 MG, 1 TABLET NEEDED, ORALLY, Q8H PRN PAIN MDD2, 30 DAY(S), 60, REFILLS 0 CONTINUE CYMBALTA CAPSULE DELAYED RELEASE PARTICLES, 30 MG, 1 CAPSULE, ORALLY WITH FOOD, TWICE A DAY FOR PAIN MDD2, 30 DAYS, 60, REFILLS 2 CONTINUE PROTONIX TABLET DELAYED RELEASE, 40 MG, DIRECTED, ORALLY, BID FOR STOMACH PAIN MDD2 NOTES: ADY HAS BEEN USING THE SAME CHRONIC PAIN MEDICATIONS FOR YEARS TO CONTROL CHRONIC LOW BACK PAIN AND LEFT LEG PAIN ASSOCIATED WITH HER WORK RELATED INJURY. REPORTING SIDE EFFECTS WITH OTHER OPIOID TRIALS TO INCLUDE MORPHINE, OXYCODONE AND TRAMADOL. REPORTS EPISODES OF SLEEPINESS AND OTHER SIDE EFFECTS AT LOW DOSES WITH THOSE MEDICATIONS. REPORTING OVERSEDATION WITH TYLENOL. PRIOR TO USING CURRENT MEDICATIONS FOR CHRONIC PAIN PATIENT WAS OVER TAKING NSAIDS AND DEVELOPED SEVERE ABDOMINAL ISSUES. WE HAVE BEEN TREATING HER WITH PROTONIX SINCE THEN AND THIS HAS KEPT FOR HER ABDOMINAL ISSUES STABLE. CURRENTLY USING CYMBALTA TO TREAT CHRONIC JOINT PAIN OF THE LUMBAR REGION. PATIENT REPORTS MARKED REDUCTION IN PAIN AND IMPROVED FUNCTIONAL STATUS WITH USE OF CYMBALTA DAILY. IT SHOULD BE NOTED THE PATIENT USES WELL BELOW THE RECOMMENDED DAILY MILLIEQUIVALENTS OF MORPHINE DAILY WITH HER CURRENT REGIMEN. CONSISTENTLY REPORTING IMPROVED PAIN CONTROL AND FUNCTIONALITY WITH CURRENT REGIMEN. DENIES SIDE EFFECTS WITH CURRENT REGIMEN FOR CHRONIC PAIN. PLEASE CONSIDER IT A MEDICAL NECESSITY TO CONTINUE HER CURRENT CHRONIC PAIN MEDICATION REGIMEN WITH EVERY THREE-MONTH FOLLOW-UP AND MONITORING HERE AT THE PAIN CENTER., ISTOP REGISTRY REVIEWED AND DEMONSTRATES COMPLLIANCE. BRINGS IN MEDICATIONS WHICH IS APPROPRIATE FOR WHAT WAS DISPENSED. RECENT URINE TOXICOLOGY REVIEWED. NO UNAUTHORIZED MEDICATIONS. NO ILLICIT SUBSTANCES AND PRESCRIBED MEDICATIONS WERE PRESENT. , [facility] NARCOTIC AGREEMENT WAS UPDATED REVIEWED AND SIGNED TODAY BY THE PATIENT. SEE ATTACHED DOCUMENT FOR FULL DETAILS; SPECIFIC ISSUES WERE REVIEWED: 1) KEEP PAIN MEDS IN THEIR ORIGINAL BOTTLES AND ANY WEEKLY PLANNERS ARE TO BE BROUGHT TO THE PAIN CENTER AT EVERY VISIT. 2) THE PATIENT IS NOT TO INCREASE DOSING OR TIMING OF THEIR PAIN MEDICATION WITHOUT SPECIFIC DIRECTION OF THEIR PAIN CENTERPROVIDER (NOT ER OR OTHER PROVIDERS). 3) ALL PAIN MEDS ARE TO BE KEPT SECURED, IN A LOCKED BOX. 4) NO PAIN MEDS ARE TO BE SHARED WITH ANY OTHER PERSON FOR ANY REASON. 5) NO PAIN MEDS MAY BE TAKEN FROM ANY FRIENDS OR RELATIVES FOR ANY REASON 6) NO MEDS OR SUBSTANCES WHICH ARE NOT LEGAL ARE TO BE USED- NO MARIJUANA, NO COCAINE, AMPHETAMINES, HEROIN, OR OTHERS ARE EVER TO BE USED. 7)URINE TESTING IS DONE TO ACCOUNT FOR MEDS AND SUBSTANCES BEING TAKEN AND WILL BE DONE RANDOMLY. PROCEDURES PN WORKMANS' COMP OPINION IN YOUR OPINION, WAS THE INCIDENT THAT THE PATIENT DESCRIBED THE COMPETENT MEDICAL CAUSE OF THIS INJURY/ILLNESS? YES ARE THE PATIENT'S COMPLAINTS CONSISTENT WITH HIS/HER HISTORY OF THE INJURY/ILLNESS? YES IS THE PATIENT'S HISTORY OF THE INJURY/ILLNESS CONSISTENT WITH YOUR OBJECTIVE FINDING? YES WHAT IS THE PERCENTAGE OF TEMPORARY IMPAIRMENT? MODERATE TO MARKED = 66.7% IS THE PATIENT WORKING? NO DOCTOR ON SITE: SHELBI ERAZO MD PROCEDURE CODES [id number] ESTABILISHED PATIENT [facility] FACILITY CHARGE DISPOSITION & COMMUNICATION FOLLOW UP 2 MONTHS (REASON: W/C MED MGMNT) ELECTRONICALLY SIGNED BY LINO WALTON ON 04/12/2019 AT 03:10 PM EST DISCLAIMER : THIS IS A VISIT SUMMARY EXTRACTED FROM THE [employer] CHART. IT IS NOT A COPY OF THE [employer] PROGRESS NOTE. MARCIAL
== END ==
LOC: M PAIN 09:15
PROVIDERS: ATTEND Nurse Practitioner Family
DX: M54.42 Lumbago with sciatica, left side (principal); G89.29 Other chronic pain; M79.7 Fibromyalgia; J45.909 Unspecified asthma, uncomplicated; Z86.59 Personal history of other mental and behavioral disorders; K21.9 Gastro-esophageal reflux disease without esophagitis; D50.9 Iron deficiency anemia, unspecified; Z96.653 Presence of artificial knee joint, bilateral; Z87.891 Personal history of nicotine dependence; Z79.899 Other long term (current) drug therapy

== ENCOUNTER → 2019-07-27 | Outpatient (CLI) | payer OTHER ==
[~2019-07-27] MED LIST changes: +CYCL-707 PO; -CYCL10TA PO
--- NOTE | 2019-07-29 03:14 | ECWPNPC ---
PATIENT NAME: ADY KING : 1955 GENDER: FEMALE VISIT DATE: 07/27/2019 DISCHARGE DATE: 07/27/19815 VISIT LOCKED DATE TIME: PHYSICIAN: NASIM GUILLEN RESOURCE: NASIM GUILLEN REASON FOR APPOINTMENT 1. W/C MED MGM, PAT COMPLETED HISTORY OF PRESENT ILLNESS HISTORY OF PRESENT ILLNESS: PATIENT IS AGREEABLE TO TELEPHONE VISIT TODAY. THIS IS A ROUTINE FOLLOW-UP AND MEDICINE MANAGEMENT FOR CHRONIC LOW BACK PAIN RELATED TO A WORK INJURY. REPORTING INCREASE IN LOW BACK PAIN AND LEG PAIN OVER THE PAST 6 MONTHS. DENIES PRECIPITATING EVENT. RATING PAIN LEVEL A 7/10 VAS. FINDS CURRENT CHRONIC PAIN MEDICATION HELPFUL AT REDUCING HER PAIN AND KEEPING HER FUNCTIONAL. DENIES ADVERSE SIDE EFFECTS WITH HER MEDICATION. PAIN THE PATIENT DESCRIBES THE PAIN... FALL RISK SCREENING: SCREENING :NO FALLS REPORTED IN THE LAST YEAR CURRENT MEDICATIONS TAKING TOPIRAMATE 50 50MG TABLET 1 TAB ORAL ONCE A DAY TAKING XALATAN 0.005 % SOLUTION 1 DROP INTO AFFECTED EYE IN THE EVENING OPHTHALMIC ONCE A DAY TAKING ALBUTEROL SULFATE HFA 108 (90 BASE) MCG/ACT AEROSOL SOLUTION 2 PUFFS NEEDED INHALATION EVERY 4 HRS TAKING FERROUS SULFATE 325 (65 FE) MG TABLET 1 TABLET ORALLY ONCE A DAY, NOTES: TAKING QOD TAKING ATORVASTATIN CALCIUM 20 MG TABLET 1 TABLET ORALLY ONCE A DAY TAKING CYCLOBENZAPRINE HCL 10 MG TABLET TAKE ONE TABLET BY MOUTH TWICE A DAY NEEDED FOR SPASM AND PAIN TAKING NITROFURANTOIN MACROCRYSTAL 100 MG CAPSULE 1 CAPSULE WITH FOOD OR MILK ORALLY DAILY TAKING ADVAIR DISKUS 100-50 MCG/DOSE AEROSOL POWDER BREATH ACTIVATED 1 PUFF INHALATION TWICE A DAY TAKING DIAZEPAM 5 MG TABLET 2 TABLETS IN THE MORNING AND 1.5 TABLETS IN THE EVENING NEEDED FOR ANXIETY ORALLY TWICE DAILY DIRECTED MDD#3.5 TAKING CYMBALTA 30 MG CAPSULE DELAYED RELEASE PARTICLES 1 CAPSULE ORALLY WITH FOOD TWICE A DAY FOR PAIN MDD2 TAKING NORCO 5-325 MG TABLET 1 TABLET NEEDED ORALLY Q8H PRN PAIN MDD2 TAKING PROTONIX 40 MG TABLET DELAYED RELEASE DIRECTED ORALLY BID FOR STOMACH PAIN MDD2 NOT-TAKING ADVAIR DISKUS 100-50 MCG/DOSE MISCELLANEOUS 1 INHALATION DAILY, NOTES: DUPLICATE MEDICATION LIST REVIEWED AND RECONCILED WITH THE PATIENT PAST MEDICAL HISTORY SPONDYLOLITHESI/CHRONIC LOW BACK PAIN - DR. GASTELUM FOR WC FIBROMYALGIA ASTHMA CHRONIC CYSTITIS HISTORY OF KIDNEY STONES DEPRESSION LEFT INTERNAL CAROTID ANEURYSM - S/P COIL/STENT 01/2012; DR. BURKS GLAUCOMA - DR. GRIGGS ANXIETY WITH DIAZEPAM DEPENDENCE DIVERTICULOSIS REFLUX ESOPHAGITIS CHEMICAL GASTRITIS COLON POLYPS - TUBULAR ADENOMAS IRON DEFICIENCY ANEMIA ALLERGIES SEASONAL IC: RASH - ALLERGY SURGICAL HISTORY LAMINECTOMY AND DISCECTOMY WITH REMOVAL OF DISC FRAGMENT 05-20-1992 EGD WITH ESOPHAGUS AND STOMACH BIOPSIES 01/2002 CEREBRAL ANEURYSM 2010 APPENDECTOMY COLONOSCOPY - SHOWED INTERNAL/EXTERNAL HEMORRHOIDS, DIVERTICULOSIS; DR. ENGEL; REPEAT Q5Y 07/[address] JOSE INIGUEZ 09/2016 COLONOSCOPY - 2 TUBULAR ADNOMAS - DR. WILLARD; R/P IN 1 YEAR 05/25/2017 EGD - BENIGN GASTRIC POLYPS RESECTED, H. PYLORI NEGATIVE - DR. WILLARD 05/25/2017 LEFT KNEE REPLACEMENT 04/2018 FAMILY HISTORY FATHER: , DIAGNOSED WITH UNSPECIFIED HEART DISEASE MOTHER: ALIVE 2 BROTHER(S) , 2 SISTER(S) . 2 SIBLINGS WITH HYPERTENSION. SOCIAL HISTORY GENERAL: TOBACCO USE ARE YOU A:FORMER SMOKER HOW LONG HAS IT BEEN SINCE YOU LAST SMOKED?> 10 YEARS LATEX QUESTIONNAIRE LATEX ALLERGY : HAVE YOU EVER DEVELOPED ANY TYPE OF REACTION AFTER HANDLING LATEX PRODUCTS SUCH RUBBER GLOVES, CONDOMS, DIAPHRAGMS, BALLOONS, SOCKS, OR UNDERWEAR?NO LATEX ALLERGY : HAVE YOU EVER DEVELOPED ANY TYPE OF REACTION DURING OR AFTER DENTAL APPOINTMENT, VAGINAL/RECTAL EXAMINATION, SURGICAL PROCEDURE, OR ANY OTHER EXPOSURE?NO DATE ASKED : 09/30/2018 LATEX RISK : HAVE YOU EVER HAD ANY DIFFICULTY BREATHING OR HIVES AFTER EATING OR HANDLING ANY FRUITS, OR VEGETABLES; SUCH KIWI, BANANAS, STONE FRUITS, OR CHESTNUTSNO LATEX RISK : DO YOU HAVE A PREVIOUS PERSONAL HISTORY OF MORE THAN NINE SURGERIES, SPINA BIFIDA, OR REPEATED CATHERIZATIONS? YES - PLEASE INDICATE : > 9 SURGERIES LATEX RISK : ARE YOU FREQUENTLY EXPOSED TO LATEX PRODUCTS IN YOUR OCCUPATION?NO BMI CARE GOAL FOLLOW-UP ABOVE NORMAL BMI FOLLOW-UPGIVING ENCOURAGEMENT TO EXERCISE ALCOHOL SCREENING DID YOU HAVE A DRINK CONTAINING ALCOHOL IN THE PAST YEAR?NO POINTS0 INTERPRETATIONNEGATIVE RECREATIONAL DRUG USE DRUG USE?NO PATIENT DENIES ABUSE OR MISSUSED OF ANY MEDICATION DENIES 07/26/2019 CAFFEINE CAFFEINE USE?NO SEXUAL HX HAD SEX IN THE LAST 12 MONTHS (VAGINAL, ORAL, OR ANAL)?NO HAVE YOU EVER HAD AN STD?NO HIV / HEP-C SCREENING HIV TEST OFFERED TO PATIENT:YES DATE OFFERED:10/09/2016 TEST ACCEPTED:NO HEP-C TEST OFFERED TO PATIENT:YES DATE OFFERED:10/09/2016 REASON:PATIENT DECLINED TEST ACCEPTED:NO REASON:PATIENT DECLINED JUDAISM [id number] [employer]THOD[employer]Y LANGUAGE LANGUAGES SPOKEN:BRITISH VIRGIN ISLANDER EDUCATION LEVEL OF EDUCATION:NOT FINISHED COLLEGE LEARNING BARRIERS / SPECIAL NEEDS CHANGE FROM LAST VISIT?NO BARRIERS TO LEARNING?NO HEARING IMPAIRED?NO VISION IMPAIRED?YES COGNITIVELY IMPAIRED?NO :CORRECTIVE LENSES READINESS TO LEARN?YES LEARNING PREFERENCES?NO LEARNING CAPABILITIES PRESENT?YES EMOTIONAL BARRIERS?NO SPECIAL DEVICES?NO CANAL BOAT OPERATOR NEEDED?NO DOMESTIC VIOLENCE DO YOU FEEL SAFE IN YOUR ENVIRONMENT?YES NEW PATIENT PAIN DIARY PATIENT DESCRIBES PAIN :ACHING, HAVE IT ALL THE TIME, THROBBING, SHOOTING FROM 0-10, WHAT LEVEL IS YOUR PAIN TODAY?7 07/26/2019 PRECIPITATING FACTORS OVERDOING THINGS ALLEVIATING FACTORS RESTING, WALKING PAIN CLINIC PFS, CLERGY, PUBLIC HEALTH REFERRALS PFS REFERRAL NEEDED?NO CLERGY REFERRAL NEEDED?NO PUBLIC HEALTH REFERRAL NEEDED?NO WAS THE PROVIDER NOTIFIED OF ANY PERTINENT INFO?YES N/A HAS THE PATIENT BEEN EDUCATED REGARDING HIS/HER PLAN OF CARE?YES HAS THE PATIENT BEEN EDUCATED REGARDING PAIN, THE RISK FOR PAIN, THE IMPORTANCE OF EFFECTIVE PAIN MANAGEMENT, AND THE PAIN ASSESSMENT PROCESS?YES ADVANCE DIRECTIVE ADVANCE DIRECTIVE DISCUSSED WITH PATIENT:YES 03/31/2019 PATIENT GIVEN INFORMATION ON HCP AT THIS TIME, DECLINES ASSISTANCE IN FILLING OUT FORM. JS REVIEWED WITH PT 08/18/17 0912 BVREVIEWED WITH PT 04/02/18 1121 LASREVIEWED WITH PATIENT 07/01/18 0930 JSREVIEWED WITH PATIENT 03/31/2019 0950 JS. HOSPITALIZATION/MAJOR DIAGNOSTIC PROCEDURE SURGERY RELATED REVIEW OF SYSTEMS REVIEWED BY: PROVIDER: NASIM HUYNH . CONSTITUTIONAL: ANY CHANGE IN YOUR MEDICAL CONDITION? NO . CHILLS NO . FEVER NO . INFECTION: DO YOU HAVE NEW INFECTIONS? NO . DO YOU HAVE HISTORY OF MRSA? NO . MUSCULOSKELETAL: ANY NEW PATTERNS OF PAIN OR NUMBNESS? YES, WORSE . GASTROENTEROLOGY: ANY NEW CHANGE IN BOWEL CONTROL? NO . GENITOURINARY: ANY NEW CHANGE IN BLADDER CONTROL? NO . IS THERE A CHANCE YOU COULD BE ? NO . HEMATOLOGY/LYMPH: DO YOU TAKE ANY BLOOD THINNERS? (FOR EXAMPLE- COUMADIN, PLAVIX, AGGRENOX, PLATEL, PRADAXA, OR XARELTO) NO . WHEN WAS YOUR LAST DOSE? DATE: TIME: . NEUROLOGY: HAVE YOU FALLEN IN THE PAST 12 MONTHS? NO . ANY NEW EXTREMITY NUMBNESS OR WEAKNESS? NO . CARDIOLOGY: DO YOU HAVE A PACEMAKER OR DEFIBRILLATOR? NO . RESPIRATORY: HAVE YOU BEEN SICK IN THE PAST WEEK? NO . FEVER NO . FLU LIKE SYMPTOMS? NO . COUGH NO . INTEGUMENTARY: DO YOU HAVE ANY RASHES OR OPEN SORES? NO . ALLERGIC/IMMUNO: ARE YOU ALLERGIC TO IV DYE? NO . ANY NEW ALLERGIES? NO . PSYCHIATRIC: DO YOU HAVE THOUGHTS OF HURTING YOURSELF OR SOMEONE ELSE? NO . ARE YOU ABUSED, NEGLECTED, OR IN AN UNSAFE ENVIRONMENT? NO . ENDOCRINOLOGY: ARE YOU DIABETIC? NO . OTHER: DO YOU NEED ANY PRESCRIPTIONS? YES - HYDROCODONE . IF YES, PLEASE LIST: ____ . ANY NEW PROBLEMS WITH YOUR MEDICATIONS? NO . WHEN DID YOU LAST EAT? ____ . WHEN DID YOU LAST DRINK? ____ . WHAT DID YOU LAST DRINK? ____ . NAME OF PERSON DRIVING YOU HOME? ____ . DO YOU HAVE ANY OTHER QUESTIONS OR CONCERNS NO . ASSESSMENTS LUMBAGO WITH SCIATICA, LEFT SIDE - M54.42 (PRIMARY) POSTLAMINECTOMY SYNDROME, NOT ELSEWHERE CLASSIFIED - M96.1 TREATMENT LUMBAGO WITH SCIATICA, LEFT SIDE CONTINUE CYCLOBENZAPRINE HCL TABLET, 10 MG, TAKE ONE TABLET BY MOUTH TWICE A DAY NEEDED FOR SPASM AND PAIN REFILL NORCO TABLET, 5-325 MG, 1 TABLET NEEDED, ORALLY, Q8H PRN PAIN MDD2, 30 DAY(S), 60, REFILLS 0 CONTINUE PROTONIX TABLET DELAYED RELEASE, 40 MG, DIRECTED, ORALLY, BID FOR STOMACH PAIN MDD2 CONTINUE CYMBALTA CAPSULE DELAYED RELEASE PARTICLES, 30 MG, 1 CAPSULE, ORALLY WITH FOOD, TWICE A DAY FOR PAIN MDD2 NOTES: ISTOP REGISTRY REVIEWED AND DEMONSTRATES COMPLLIANCE. . RECENT URINE TOXICOLOGY REVIEWED. NO UNAUTHORIZED MEDICATIONS. NO ILLICIT SUBSTANCES AND PRESCRIBED MEDICATIONS WERE PRESENT. FOLLOW-UP AT PAIN CLINIC IN 3 MONTHS. TOTAL TIME SPENT DURING TELEPHONE VISIT WAS APPROXIMATELY 12 MINUTES. PROCEDURES PN WORKMANS' COMP OPINION IN YOUR OPINION, WAS THE INCIDENT THAT THE PATIENT DESCRIBED THE COMPETENT MEDICAL CAUSE OF THIS INJURY/ILLNESS? YES ARE THE PATIENT'S COMPLAINTS CONSISTENT WITH HIS/HER HISTORY OF THE INJURY/ILLNESS? YES IS THE PATIENT'S HISTORY OF THE INJURY/ILLNESS CONSISTENT WITH YOUR OBJECTIVE FINDING? YES WHAT IS THE PERCENTAGE OF TEMPORARY IMPAIRMENT? MODERATE TO MARKED = 66.7% IS THE PATIENT WORKING? NO DOCTOR ON SITE: SHELBI ERAZO MD DISPOSITION & COMMUNICATION FOLLOW UP 3 MONTHS IN CLINIC/UTOX (REASON: W/C LBP/MED MGMNT) ELECTRONICALLY SIGNED BY LINO WALTON ON 07/28/2019 AT 01:04 PM EDT DISCLAIMER : THIS IS A VISIT SUMMARY EXTRACTED FROM THE [employer] CHART. IT IS NOT A COPY OF THE [employer] PROGRESS NOTE. MARCIAL
== END ==
LOC: M PAIN 11:00
PROVIDERS: ATTEND Nurse Practitioner Family
DX: M54.42 Lumbago with sciatica, left side (principal); M96.1 Postlaminectomy syndrome, not elsewhere classified; M79.7 Fibromyalgia; J45.909 Unspecified asthma, uncomplicated; Z86.59 Personal history of other mental and behavioral disorders; K21.9 Gastro-esophageal reflux disease without esophagitis; D50.9 Iron deficiency anemia, unspecified; Z96.653 Presence of artificial knee joint, bilateral; Z87.891 Personal history of nicotine dependence; Z79.899 Other long term (current) drug therapy

== ENCOUNTER → 2019-12-30 | Outpatient (CLI) | payer MEDICARE ==
[2019-12-30 10:52] LABS: ALBUMIN 3.7 GM/DL (3.2-5.2); ALT/SGPT 20 U/L (12-78); BILIRUBIN,TOTAL 0.6 MG/DL (0.2-1.0); BLOOD UREA NITROGEN 19 MG/DL (7-18); CALCIUM LEVEL 9.3 MG/DL (8.8-10.2); CARBON DIOXIDE LEVEL 27 MEQ/L (21-32); CHLORIDE LEVEL 110 MEQ/L (98-107); CHOLESTEROL LEVEL 197 MG/DL (<200); CHOLESTEROL RISK RATIO 3.177 (<5); CREATININE FOR GFR 0.72 MG/DL (0.55-1.30); GLOMERULAR FILTRATION RATE > 60.0 (>45); GLUCOSE, FASTING 104 MG/DL (70-100); HDL CHOLESTEROL 62 MG/DL (>40); LDL CHOLESTEROL 102 MG/DL (<100); NON-HDL-C 135 MG/DL; POTASSIUM SERUM 4.1 MEQ/L (3.5-5.1); SODIUM LEVEL 142 MEQ/L (136-145); TRIGLYCERIDES LEVEL 164 MG/DL (<150)
[2019-12-30 11:00] LABS: HEMOGLOBIN A1c 5.6 %
== END ==
LOC: M PLALAB 08:40
PROVIDERS: ATTEND Family Medicine
DX: R73.01 Impaired fasting glucose (principal); E78.2 Mixed hyperlipidemia

== ENCOUNTER → 2020-01-27 | Outpatient (CLI) | payer OTHER ==
--- NOTE | 2020-01-30 23:05 | ECWPNPC ---
PATIENT NAME: ADY KING : 1955 GENDER: FEMALE VISIT DATE: 01/27/2020 DISCHARGE DATE: 01/27/20 1054 VISIT LOCKED DATE TIME: PHYSICIAN: NASIM GUILLEN RESOURCE: NASIM GUILLEN REASON FOR APPOINTMENT 1. W/C LOW BACK HISTORY OF PRESENT ILLNESS GENERAL: -. FALL RISK SCREENING: SCREENING :NO FALLS REPORTED IN THE LAST YEAR PAIN SCREENING: PATIENT HAS A COMPLAINT OF ACUTE OR CHRONIC PAIN :YES INTENSITY OF PAIN (SCALE OF 1 TO 10):10 WHAT DOES YOUR PAIN FEEL LIKE:CONTINOUS, TENDER, THROBBING PAIN IS INCREASED BY:ACTIVITIES TREATMENT/MEDICATIONS USED TO MANAGE PAIN:OPIOIDS NURSING NOTE: -. PAIN CENTER INTAKE QUESTIONS: DO YOU HAVE A HISTORY OF MRSA? :NO DO YOU TAKE A BLOOD THINNERS? :NO DO YOU HAVE ANY BLEEDING DISORDERS? :NO ANY NEW NUMBNESS OR WEAKNESS IN YOUR LEGS OR ARMS? :NO ANY PACEMAKER,DEFIBRILLATOR, OR DORSAL COLUMN STIMULATOR? :NO DO YOU HAVE ANY RASHES OR OPEN SORES? :NO ARE YOU ALLERGIC TO IV DYE? :NO ARE YOU DIABETIC? :NO ANY NEW PROBLEMS WITH YOUR MEDICATIONS? :NO HAVE YOU RECEIVED A VACCINE IN THE PAST 30 DAYS? :NO DO YOU PLAN TO RECEIVE A VACCINE IN THE NEXT 21 DAYS? :NO DO YOU NEED ANY PRESCRIPTION? :NO DO YOU TAKE ANY IMMUNOSUPPRESSIVE MEDICATIONS? :NO IS THERE A CHANCE YOU COULD BE ? :NO ARE YOU BREAST FEEDING? :NO HISTORY OF PRESENT ILLNESS: PAIN THE PATIENT DESCRIBES THE PAIN... 64 YEAR OLD FEMALE PATIENT WITH HISTORY OF CHRONIC LOW BACK PAIN. PATIENT DESCRIBES THE PAIN SHOOTING WITH A PAIN SCORE OF 7/10 AT TODAY'S VISIT. PATIENT WAS INJURED IN A WORK RELATED INJURY. PATIENT STATES THAT SHE HAS TRIED PT IN THE PAST AND IT DID NOT REALLY WORK FOR HER. PATIENT STATES THAT SHE HAS HAD ONE BACK SURGERY IN 05/20/1992. CURRENTLY THE PATIENT IS USING VICODIN, PROTONIX, , AND CYMBALTA WHICH SHE STATES KEEPS HER MOBILE AND FUNCTIONAL.DISCUSSED MEDICATION AND TREATMENT OPTIONS. CURRENT MEDICATIONS TAKING PROTONIX 40 MG TABLET DELAYED RELEASE DIRECTED ORALLY BID FOR STOMACH PAIN MDD2 TAKING NORCO 5-325 MG TABLET 1 TABLET NEEDED ORALLY Q8H PRN PAIN MDD2 TAKING CYMBALTA 30 MG CAPSULE DELAYED RELEASE PARTICLES 1 CAPSULE ORALLY WITH FOOD TWICE A DAY FOR PAIN MDD2 TAKING TOPIRAMATE 50 50MG TABLET 1 TAB ORAL ONCE A DAY TAKING XALATAN 0.005 % SOLUTION 1 DROP INTO AFFECTED EYE IN THE EVENING OPHTHALMIC ONCE A DAY TAKING ALBUTEROL SULFATE HFA 108 (90 BASE) MCG/ACT AEROSOL SOLUTION 2 PUFFS NEEDED INHALATION EVERY 4 HRS TAKING ATORVASTATIN CALCIUM 20 MG TABLET 1 TABLET ORALLY ONCE A DAY TAKING NITROFURANTOIN MACROCRYSTAL 100 MG CAPSULE 1 CAPSULE WITH FOOD OR MILK ORALLY DAILY TAKING ADVAIR DISKUS 100-50 MCG/DOSE AEROSOL POWDER BREATH ACTIVATED 1 PUFF INHALATION TWICE A DAY TAKING DIAZEPAM 5 MG TABLET 2 TABLETS IN THE MORNING AND 1.5 TABLETS IN THE EVENING NEEDED FOR ANXIETY ORALLY TWICE DAILY DIRECTED MDD#3.5 TAKING CYCLOBENZAPRINE HCL 10 MG TABLET TAKE ONE TABLET BY MOUTH TWICE A DAY NEEDED FOR SPASM AND PAIN NOT-TAKING FERROUS SULFATE 325 (65 FE) MG TABLET 1 TABLET ORALLY ONCE A DAY NOT-TAKING ADVAIR DISKUS 100-50 MCG/DOSE MISCELLANEOUS 1 INHALATION DAILY, NOTES: DUPLICATE MEDICATION LIST REVIEWED AND RECONCILED WITH THE PATIENT PAST MEDICAL HISTORY SPONDYLOLITHESI/CHRONIC LOW BACK PAIN - DR. GASTELUM FOR FIBROMYALGIA ASTHMA CHRONIC CYSTITIS HISTORY OF KIDNEY STONES DEPRESSION LEFT INTERNAL CAROTID ANEURYSM - S/P COIL/STENT 01/2012; DR. BURKS GLAUCOMA - DR. GRIGGS ANXIETY WITH DIAZEPAM DEPENDENCE DIVERTICULOSIS REFLUX ESOPHAGITIS CHEMICAL GASTRITIS COLON POLYPS - TUBULAR ADENOMAS IRON DEFICIENCY ANEMIA ALLERGIES SEASONAL IC: RASH - ALLERGY SURGICAL HISTORY LAMINECTOMY AND DISCECTOMY WITH REMOVAL OF DISC FRAGMENT 05-20-1992 EGD WITH ESOPHAGUS AND STOMACH BIOPSIES 01/2002 CEREBRAL ANEURYSM 2010 APPENDECTOMY COLONOSCOPY - SHOWED INTERNAL/EXTERNAL HEMORRHOIDS, DIVERTICULOSIS; DR. ENGEL; REPEAT Q5Y 07/[address] JOSE INIGUEZ 09/2016 COLONOSCOPY - 2 TUBULAR ADNOMAS - DR. WILLARD; R/P IN 1 YEAR 05/25/2017 EGD - BENIGN GASTRIC POLYPS RESECTED, H. PYLORI NEGATIVE - DR. WILLARD 05/25/2017 LEFT KNEE REPLACEMENT 04/2018 FAMILY HISTORY FATHER: , DIAGNOSED WITH UNSPECIFIED HEART DISEASE MOTHER: ALIVE 2 BROTHER(S) , 2 SISTER(S) . 2 SIBLINGS WITH HYPERTENSION. SOCIAL HISTORY GENERAL: TOBACCO USE ARE YOU A:FORMER SMOKER HOW LONG HAS IT BEEN SINCE YOU LAST SMOKED?> 10 YEARS LATEX QUESTIONNAIRE LATEX ALLERGY : HAVE YOU EVER DEVELOPED ANY TYPE OF REACTION AFTER HANDLING LATEX PRODUCTS SUCH RUBBER GLOVES, CONDOMS, DIAPHRAGMS, BALLOONS, SOCKS, OR UNDERWEAR?NO LATEX ALLERGY : HAVE YOU EVER DEVELOPED ANY TYPE OF REACTION DURING OR AFTER DENTAL APPOINTMENT, VAGINAL/RECTAL EXAMINATION, SURGICAL PROCEDURE, OR ANY OTHER EXPOSURE?NO LATEX RISK : HAVE YOU EVER HAD ANY DIFFICULTY BREATHING OR HIVES AFTER EATING OR HANDLING ANY FRUITS, OR VEGETABLES; SUCH KIWI, BANANAS, STONE FRUITS, OR CHESTNUTSNO LATEX RISK : DO YOU HAVE A PREVIOUS PERSONAL HISTORY OF MORE THAN NINE SURGERIES, SPINA BIFIDA, OR REPEATED CATHERIZATIONS? YES - PLEASE INDICATE : > 9 SURGERIES LATEX RISK : ARE YOU FREQUENTLY EXPOSED TO LATEX PRODUCTS IN YOUR OCCUPATION?NO DATE ASKED : 01/27/2020 BMI CARE GOAL FOLLOW-UP ABOVE NORMAL BMI FOLLOW-UPGIVING ENCOURAGEMENT TO EXERCISE ALCOHOL SCREENING DID YOU HAVE A DRINK CONTAINING ALCOHOL IN THE PAST YEAR?NO POINTS0 INTERPRETATIONNEGATIVE RECREATIONAL DRUG USE DRUG USE?NO PATIENT DENIES ABUSE OR MISSUSED OF ANY MEDICATION DENIES 07/26/2019 CAFFEINE CAFFEINE USE?NO SEXUAL HX HAD SEX IN THE LAST 12 MONTHS (VAGINAL, ORAL, OR ANAL)?NO HAVE YOU EVER HAD AN STD?NO HIV / HEP-C SCREENING HIV TEST OFFERED TO PATIENT:YES DATE OFFERED:10/09/2016 TEST ACCEPTED:NO HEP-C TEST OFFERED TO PATIENT:YES DATE OFFERED:10/09/2016 REASON:PATIENT DECLINED TEST ACCEPTED:NO REASON:PATIENT DECLINED JEHOVAH'S WITNESS [id number] HOLINESS LANGUAGE LANGUAGES SPOKEN:BELARUSIAN EDUCATION LEVEL OF EDUCATION:NOT FINISHED COLLEGE LEARNING BARRIERS / SPECIAL NEEDS CHANGE FROM LAST VISIT?NO BARRIERS TO LEARNING?NO HEARING IMPAIRED?NO VISION IMPAIRED?YES COGNITIVELY IMPAIRED?NO :CORRECTIVE LENSES READINESS TO LEARN?YES LEARNING PREFERENCES?NO LEARNING CAPABILITIES PRESENT?YES EMOTIONAL BARRIERS?NO SPECIAL DEVICES?NO TEST DRIVER NEEDED?NO DOMESTIC VIOLENCE DO YOU FEEL SAFE IN YOUR ENVIRONMENT?YES PATIENT DESCRIBES PAIN : ACHING, HAVE IT ALL THE TIME, THROBBING, SHOOTING, FROM 0-10, WHAT LEVEL IS YOUR PAIN TODAY? 7 07/26/2019, PRECIPITATING FACTORS OVERDOING THINGS, ALLEVIATING FACTORS RESTING, WALKING. PAIN CLINIC PFS, CLERGY, PUBLIC HEALTH REFERRALS PFS REFERRAL NEEDED?NO CLERGY REFERRAL NEEDED?NO PUBLIC HEALTH REFERRAL NEEDED?NO WAS THE PROVIDER NOTIFIED OF ANY PERTINENT INFO?YES N/A HAS THE PATIENT BEEN EDUCATED REGARDING HIS/HER PLAN OF CARE?YES HAS THE PATIENT BEEN EDUCATED REGARDING PAIN, THE RISK FOR PAIN, THE IMPORTANCE OF EFFECTIVE PAIN MANAGEMENT, AND THE PAIN ASSESSMENT PROCESS?YES ADVANCE DIRECTIVE ADVANCE DIRECTIVE DISCUSSED WITH PATIENT:YES 03/31/2019 PATIENT GIVEN INFORMATION ON HCP AT THIS TIME, DECLINES ASSISTANCE IN FILLING OUT FORM. JS REVIEWED WITH PT 08/18/17 0912 BVREVIEWED WITH PT 04/02/18 1121 LASREVIEWED WITH PATIENT 07/01/18 0930 JSREVIEWED WITH PATIENT 03/31/2019 0950 JS. HOSPITALIZATION/MAJOR DIAGNOSTIC PROCEDURE SURGERY RELATED REVIEW OF SYSTEMS CONSTITUTIONAL: ANY RECENT FEVER NO . CHILLS NO . WEIGHT CHANGE OF UNKNOWN REASONS NO . GASTROENTEROLOGY: NEW UNEXPLAINABLE CHANGES IN BOWEL CONTROL NO . CONSTIPATION NO . GENITOURINARY: ANY NEW CHANGE IN BLADDER CONTROL? NO . NEUROLOGY: NEW ONSET DIZZINESS OR NEUROLOGICAL CHANGES NOT MENTIONED NO . NEW NUMBNESS OR PAIN PATTERNS NOT MENTIONED AND PERTINENT TO TODAY'S VISIT NO . CARDIOLOGY: NEW CHEST PRESSURE NO . NEW CHEST PAIN NO . RESPIRATORY: UNEXPLAINABLE COUGH NO . NEW SHORTNESS OF BREATH NO . VITAL SIGNS WT 207.6 LBS, HT 66", BMI 33.50 INDEX, BP 147/80 MM HG, HR 98 /MIN, RR 18 /MIN, TEMP 97.2 F, OXYGEN SAT % 97%, SAFE IN ENV? (Y/N) YES, NA INITIALS [id number], REVIEWED BY: KG. EXAMINATION GENERAL EXAMINATION: GENERAL AWAKE,ALERT ,PLEASANT . PSYCH AFFECT NORMAL . LUNGS: LUNG SINHA ARE CLEAR TO AUSCULTATION BILATERALLY. GOOD MOVEMENT OF AIR . HEART: S1, S2 IN A REGULAR RATE AND RHYTHM. NO SIGNIFICANT MURMURS, RUBS OR GALLOPS NOTED . ASSESSMENTS LUMBAGO WITH SCIATICA, LEFT SIDE - M54.42 (PRIMARY) CHRONIC PRESCRIPTION OPIATE USE - Z79.891 TREATMENT LUMBAGO WITH SCIATICA, LEFT SIDE REFILL PROTONIX TABLET DELAYED RELEASE, 40 MG, DIRECTED, ORALLY, BID FOR STOMACH PAIN MDD2, 30 DAYS, 60, REFILLS 5 REFILL NORCO TABLET, 5-325 MG, 1 TABLET NEEDED, ORALLY, Q8H PRN PAIN MDD2, 30 DAYS, 60, REFILLS 0 REFILL CYMBALTA CAPSULE DELAYED RELEASE PARTICLES, 30 MG, 1 CAPSULE, ORALLY WITH FOOD, TWICE A DAY FOR PAIN MDD2, 30 DAYS, 60, REFILLS 5 NOTES: ISTOP REGISTRY REVIEWED AND DEMONSTRATES COMPLLIANCE. BRINGS IN MEDICATIONS WHICH IS APPROPRIATE FOR WHAT WAS DISPENSED. RECENT URINE TOXICOLOGY REVIEWED. NO UNAUTHORIZED MEDICATIONS. NO ILLICIT SUBSTANCES AND PRESCRIBED MEDICATIONS WERE PRESENT. ORAL SWAB TOXICOLOGY OR URINE TOX , RISKS OF NARCOTIC/OPIOD MEDICATIONS INCLUDES BUT IS NOT LIMITED TO RISK OF DEPENDANCE/DEVELOPMENT OF ADDICTION, MOOD DISTURBANCE AND DEPRESSION, OSTEOPOROSIS, HORMONAL AND LABIDAL CHANGES, RESPIRATORY DEPRESSION AND . PATIENT IS ADVISED NOT TO DRIVE OR DRINK ALCOHOL WHILE ON THESE MEDICATIONS. PROCEDURES PN WORKMANS' COMP OPINION IN YOUR OPINION, WAS THE INCIDENT THAT THE PATIENT DESCRIBED THE COMPETENT MEDICAL CAUSE OF THIS INJURY/ILLNESS? YES ARE THE PATIENT'S COMPLAINTS CONSISTENT WITH HIS/HER HISTORY OF THE INJURY/ILLNESS? YES IS THE PATIENT'S HISTORY OF THE INJURY/ILLNESS CONSISTENT WITH YOUR OBJECTIVE FINDING? YES WHAT IS THE PERCENTAGE OF TEMPORARY IMPAIRMENT? MODERATE TO MARKED = 66.7% IS THE PATIENT WORKING? NO DOCTOR ON SITE: SHELBI ERAZO MD PROCEDURE CODES FA211 ESTABILISHED PATIENT [facility] FACILITY CHARGE DISPOSITION & COMMUNICATION FOLLOW UP 3 MONTHS (REASON: W/C LOW BACK/MED MGMNT/REVIEW TOX) ELECTRONICALLY SIGNED BY LINO WALTON ON 01/30/2020 AT 03:10 PM EST DISCLAIMER : THIS IS A VISIT SUMMARY EXTRACTED FROM THE [employer] CHART. IT IS NOT A COPY OF THE [employer] PROGRESS NOTE. MARCIAL
== END ==
LOC: M PAIN 09:45
PROVIDERS: ATTEND Nurse Practitioner Family
DX: M54.42 Lumbago with sciatica, left side (principal); M79.7 Fibromyalgia; J45.909 Unspecified asthma, uncomplicated; F32.9 Major depressive disorder, single episode, unspecified; H40.9 Unspecified glaucoma; F41.9 Anxiety disorder, unspecified; K21.00 Gastro-esophageal reflux disease with esophagitis, without bleeding; D50.9 Iron deficiency anemia, unspecified; Z87.891 Personal history of nicotine dependence; Z79.899 Other long term (current) drug therapy; Z79.891 Long term (current) use of opiate analgesic

== ENCOUNTER → 2020-04-26 | Outpatient (CLI) | payer OTHER ==
--- NOTE | 2020-05-01 04:48 | ECWPNPC ---
PATIENT NAME: ADY KING : 1955 GENDER: FEMALE VISIT DATE: 04/26/2020 DISCHARGE DATE: 04/26/20 1059 VISIT LOCKED DATE TIME: PHYSICIAN: NASIM GUILLEN RESOURCE: NASIM GUILLEN REASON FOR APPOINTMENT 1. LOW BACK/MED MGMNT/REVIEW TOX HISTORY OF PRESENT ILLNESS DEPRESSION SCREENING: PHQ-2 (2015 EDITION) LITTLE INTEREST OR PLEASURE IN DOING THINGS?NOT AT ALL FEELING DOWN, DEPRESSED, OR HOPELESS?NOT AT ALL TOTAL SCORE0 GENERAL: -. FALL RISK SCREENING: SCREENING :NO FALLS REPORTED IN THE LAST YEAR PAIN SCREENING: PATIENT HAS A COMPLAINT OF ACUTE OR CHRONIC PAIN :YES LOCATION OF PAIN:LOW BACK, LEG(S) INTENSITY OF PAIN (SCALE OF 1 TO 10):5 WHAT DOES YOUR PAIN FEEL LIKE:CONTINOUS, SHOOTING DURATION:CONTINOUS, MAINLY DURING THE NIGHT, AWAKENS FROM SLEEP PAIN IS INCREASED BY:ACTIVITIES, PROLONGED STANDING PAIN IS DECREASED BY:USE OF PAIN MEDICATIONS NURSING NOTE: -. PAIN CENTER INTAKE QUESTIONS: DO YOU HAVE A HISTORY OF MRSA? :NO DO YOU TAKE A BLOOD THINNERS? :NO DO YOU HAVE ANY BLEEDING DISORDERS? :NO ANY NEW NUMBNESS OR WEAKNESS IN YOUR LEGS OR ARMS? :NO ANY PACEMAKER,DEFIBRILLATOR, OR DORSAL COLUMN STIMULATOR? :NO DO YOU HAVE ANY RASHES OR OPEN SORES? :NO ARE YOU ALLERGIC TO IV DYE? :NO ARE YOU DIABETIC? :NO ANY NEW PROBLEMS WITH YOUR MEDICATIONS? :NO HAVE YOU RECEIVED A VACCINE IN THE PAST 30 DAYS? :NO DO YOU PLAN TO RECEIVE A VACCINE IN THE NEXT 21 DAYS? :NO DO YOU NEED ANY PRESCRIPTION? :YES CYMBALTA, PROTONIX, AND HYDROCODONE DO YOU TAKE ANY IMMUNOSUPPRESSIVE MEDICATIONS? :NO IS THERE A CHANCE YOU COULD BE ? :NO ARE YOU BREAST FEEDING? :NO HISTORY OF PRESENT ILLNESS: PAIN THE PATIENT DESCRIBES THE PAIN... 64 YEAR OLD FEMALE PATIENT WITH HISTORY OF CHRONIC LOW BACK PAIN. PATIENT DESCRIBES THE PAIN SHOOTING WITH A PAIN SCORE OF 7/10 AT TODAY'S VISIT. PATIENT WAS INJURED IN A WORK RELATED INJURY. PATIENT STATES THAT SHE HAS TRIED PT IN THE PAST AND IT DID NOT REALLY WORK FOR HER. PATIENT STATES THAT SHE HAS HAD ONE BACK SURGERY IN 05/20/1992. CURRENTLY THE PATIENT IS USING VICODIN, PROTONIX, , AND CYMBALTA WHICH SHE STATES KEEPS HER MOBILE AND FUNCTIONAL.DISCUSSED MEDICATION AND TREATMENT OPTIONS. CURRENT MEDICATIONS TAKING TOPIRAMATE 50 50MG TABLET 1 TAB ORAL ONCE A DAY TAKING XALATAN 0.005 % SOLUTION 1 DROP INTO AFFECTED EYE IN THE EVENING OPHTHALMIC ONCE A DAY TAKING ALBUTEROL SULFATE HFA 108 (90 BASE) MCG/ACT AEROSOL SOLUTION 2 PUFFS NEEDED INHALATION EVERY 4 HRS TAKING ATORVASTATIN CALCIUM 20 MG TABLET 1 TABLET ORALLY ONCE A DAY TAKING NITROFURANTOIN MACROCRYSTAL 100 MG CAPSULE 1 CAPSULE WITH FOOD OR MILK ORALLY DAILY TAKING ADVAIR DISKUS 100-50 MCG/DOSE AEROSOL POWDER BREATH ACTIVATED 1 PUFF INHALATION TWICE A DAY TAKING DIAZEPAM 5 MG TABLET 2 TABLETS IN THE MORNING AND 1.5 TABLETS IN THE EVENING NEEDED FOR ANXIETY ORALLY TWICE DAILY DIRECTED MDD#3.5 TAKING CYMBALTA 30 MG CAPSULE DELAYED RELEASE PARTICLES 1 CAPSULE ORALLY WITH FOOD TWICE A DAY FOR PAIN MDD2 TAKING PROTONIX 40 MG TABLET DELAYED RELEASE DIRECTED ORALLY BID FOR STOMACH PAIN MDD2 TAKING NORCO 5-325 MG TABLET 1 TABLET NEEDED ORALLY Q8H PRN PAIN MDD2 TAKING CYCLOBENZAPRINE HCL 10 MG TABLET TAKE ONE TABLET BY MOUTH TWICE A DAY NEEDED FOR SPASM AND PAIN ORALLY BID NOT-TAKING FERROUS SULFATE 325 (65 FE) MG TABLET 1 TABLET ORALLY ONCE A DAY NOT-TAKING ADVAIR DISKUS 100-50 MCG/DOSE MISCELLANEOUS 1 INHALATION DAILY, NOTES: DUPLICATE MEDICATION LIST REVIEWED AND RECONCILED WITH THE PATIENT PAST MEDICAL HISTORY SPONDYLOLITHESI/CHRONIC LOW BACK PAIN - DR. GASTELUM FOR FIBROMYALGIA ASTHMA CHRONIC CYSTITIS HISTORY OF KIDNEY STONES DEPRESSION LEFT INTERNAL CAROTID ANEURYSM - S/P COIL/STENT 01/2012; DR. BURKS GLAUCOMA - DR. GRIGGS ANXIETY WITH DIAZEPAM DEPENDENCE DIVERTICULOSIS REFLUX ESOPHAGITIS CHEMICAL GASTRITIS COLON POLYPS - TUBULAR ADENOMAS IRON DEFICIENCY ANEMIA ALLERGIES SEASONAL IC: RASH - ALLERGY SOCIAL HISTORY GENERAL: TOBACCO USE ARE YOU A:FORMER SMOKER HOW LONG HAS IT BEEN SINCE YOU LAST SMOKED?> 10 YEARS LATEX QUESTIONNAIRE LATEX ALLERGY : HAVE YOU EVER DEVELOPED ANY TYPE OF REACTION AFTER HANDLING LATEX PRODUCTS SUCH RUBBER GLOVES, CONDOMS, DIAPHRAGMS, BALLOONS, SOCKS, OR UNDERWEAR?NO LATEX ALLERGY : HAVE YOU EVER DEVELOPED ANY TYPE OF REACTION DURING OR AFTER DENTAL APPOINTMENT, VAGINAL/RECTAL EXAMINATION, SURGICAL PROCEDURE, OR ANY OTHER EXPOSURE?NO LATEX RISK : HAVE YOU EVER HAD ANY DIFFICULTY BREATHING OR HIVES AFTER EATING OR HANDLING ANY FRUITS, OR VEGETABLES; SUCH KIWI, BANANAS, STONE FRUITS, OR CHESTNUTSNO LATEX RISK : DO YOU HAVE A PREVIOUS PERSONAL HISTORY OF MORE THAN NINE SURGERIES, SPINA BIFIDA, OR REPEATED CATHERIZATIONS? YES - PLEASE INDICATE : > 9 SURGERIES LATEX RISK : ARE YOU FREQUENTLY EXPOSED TO LATEX PRODUCTS IN YOUR OCCUPATION?NO DATE ASKED : 01/27/2020 ALCOHOL USE: NO. BMI CARE GOAL FOLLOW-UP ABOVE NORMAL BMI FOLLOW-UPGIVING ENCOURAGEMENT TO EXERCISE ALCOHOL SCREENING DID YOU HAVE A DRINK CONTAINING ALCOHOL IN THE PAST YEAR?NO POINTS0 INTERPRETATIONNEGATIVE RECREATIONAL DRUG USE DRUG USE?NO PATIENT DENIES ABUSE OR MISSUSED OF ANY MEDICATION DENIES 07/26/2019 CAFFEINE CAFFEINE USE?NO SEXUAL HX HAD SEX IN THE LAST 12 MONTHS (VAGINAL, ORAL, OR ANAL)?NO HAVE YOU EVER HAD AN STD?NO HIV / HEP-C SCREENING HIV TEST OFFERED TO PATIENT:YES DATE OFFERED:10/09/2016 TEST ACCEPTED:NO HEP-C TEST OFFERED TO PATIENT:YES DATE OFFERED:10/09/2016 REASON:PATIENT DECLINED TEST ACCEPTED:NO REASON:PATIENT DECLINED BAHAI [id number] HINDU LANGUAGE LANGUAGES SPOKEN:HEBREW EDUCATION LEVEL OF EDUCATION:NOT FINISHED COLLEGE LEARNING BARRIERS / SPECIAL NEEDS CHANGE FROM LAST VISIT?NO BARRIERS TO LEARNING?NO HEARING IMPAIRED?NO VISION IMPAIRED?YES :CORRECTIVE LENSES COGNITIVELY IMPAIRED?NO READINESS TO LEARN?YES LEARNING PREFERENCES?NO LEARNING CAPABILITIES PRESENT?YES EMOTIONAL BARRIERS?NO SPECIAL DEVICES?NO EDGER SAW OPERATOR NEEDED?NO DOMESTIC VIOLENCE DO YOU FEEL SAFE IN YOUR ENVIRONMENT?YES PATIENT DESCRIBES PAIN : ACHING, HAVE IT ALL THE TIME, THROBBING, SHOOTING, FROM 0-10, WHAT LEVEL IS YOUR PAIN TODAY? 7 07/26/2019, PRECIPITATING FACTORS OVERDOING THINGS, ALLEVIATING FACTORS RESTING, WALKING. - PFS REFERRAL NEEDED?NO CLERGY REFERRAL NEEDED?NO PUBLIC HEALTH REFERRAL NEEDED?NO WAS THE PROVIDER NOTIFIED OF ANY PERTINENT INFO?YES N/A HAS THE PATIENT BEEN EDUCATED REGARDING HIS/HER PLAN OF CARE?YES HAS THE PATIENT BEEN EDUCATED REGARDING PAIN, THE RISK FOR PAIN, THE IMPORTANCE OF EFFECTIVE PAIN MANAGEMENT, AND THE PAIN ASSESSMENT PROCESS?YES ADVANCE DIRECTIVE ADVANCE DIRECTIVE DISCUSSED WITH PATIENT:YES 03/31/2019 PATIENT GIVEN INFORMATION ON HCP AT THIS TIME, DECLINES ASSISTANCE IN FILLING OUT FORM. JS REVIEWED WITH PT 08/18/17 0912 BVREVIEWED WITH PT 04/02/18 1121 LASREVIEWED WITH PATIENT 07/01/18 0930 JSREVIEWED WITH PATIENT 03/31/2019 0950 JS. REVIEW OF SYSTEMS CONSTITUTIONAL: ANY RECENT FEVER NO . CHILLS NO . WEIGHT CHANGE OF UNKNOWN REASONS NO . GASTROENTEROLOGY: NEW UNEXPLAINABLE CHANGES IN BOWEL CONTROL NO . CONSTIPATION NO . GENITOURINARY: ANY NEW CHANGE IN BLADDER CONTROL? NO . NEUROLOGY: NEW ONSET DIZZINESS OR NEUROLOGICAL CHANGES NOT MENTIONED NO . NEW NUMBNESS OR PAIN PATTERNS NOT MENTIONED AND PERTINENT TO TODAY'S VISIT NO . CARDIOLOGY: NEW CHEST PRESSURE NO . NEW CHEST PAIN NO . RESPIRATORY: UNEXPLAINABLE COUGH NO . NEW SHORTNESS OF BREATH NO . VITAL SIGNS WT 222.6 LBS, HT 66", BMI 35.92 INDEX, BP 136/86 MM HG, HR 117 /MIN, RR 18 /MIN, TEMP 97.0 F, OXYGEN SAT % 97%, SAFE IN ENV? (Y/N) YES, NA INITIALS AW 0959, REVIEWED BY: SEA CARDONA MA. EXAMINATION GENERAL EXAMINATION: GENERAL AWAKE,ALERT ,PLEASANT . PSYCH AFFECT NORMAL . LUNGS: LUNG SINHA ARE CLEAR TO AUSCULTATION BILATERALLY. GOOD MOVEMENT OF AIR . HEART: S1, S2 IN A REGULAR RATE AND RHYTHM. NO SIGNIFICANT MURMURS, RUBS OR GALLOPS NOTED . ASSESSMENTS LUMBAGO WITH SCIATICA, LEFT SIDE - M54.42 (PRIMARY) TREATMENT LUMBAGO WITH SCIATICA, LEFT SIDE REFILL CYMBALTA CAPSULE DELAYED RELEASE PARTICLES, 30 MG, 1 CAPSULE, ORALLY WITH FOOD, TWICE A DAY FOR PAIN MDD2, 30 DAYS, 60, REFILLS 5 CONTINUE PROTONIX TABLET DELAYED RELEASE, 40 MG, DIRECTED, ORALLY, BID FOR STOMACH PAIN MDD2 CONTINUE NORCO TABLET, 5-325 MG, 1 TABLET NEEDED, ORALLY, Q8H PRN PAIN MDD2 NOTES: ISTOP REGISTRY REVIEWED AND DEMONSTRATES COMPLLIANCE. BRINGS IN MEDICATIONS WHICH IS APPROPRIATE FOR WHAT WAS DISPENSED. RECENT URINE TOXICOLOGY REVIEWED. NO UNAUTHORIZED MEDICATIONS. NO ILLICIT SUBSTANCES AND PRESCRIBED MEDICATIONS WERE PRESENT. , RISKS OF NARCOTIC/OPIOD MEDICATIONS INCLUDES BUT IS NOT LIMITED TO RISK OF DEPENDANCE/DEVELOPMENT OF ADDICTION, MOOD DISTURBANCE AND DEPRESSION, OSTEOPOROSIS, HORMONAL AND LABIDAL CHANGES, RESPIRATORY DEPRESSION AND . PATIENT IS ADVISED NOT TO DRIVE OR DRINK ALCOHOL WHILE ON THESE MEDICATIONS. PROCEDURES PN WORKMANS' COMP OPINION IN YOUR OPINION, WAS THE INCIDENT THAT THE PATIENT DESCRIBED THE COMPETENT MEDICAL CAUSE OF THIS INJURY/ILLNESS? YES ARE THE PATIENT'S COMPLAINTS CONSISTENT WITH HIS/HER HISTORY OF THE INJURY/ILLNESS? YES IS THE PATIENT'S HISTORY OF THE INJURY/ILLNESS CONSISTENT WITH YOUR OBJECTIVE FINDING? YES WHAT IS THE PERCENTAGE OF TEMPORARY IMPAIRMENT? MODERATE TO MARKED = 66.7% IS THE PATIENT WORKING? NO DOCTOR ON SITE: SHELBI ERAZO MD PROCEDURE CODES FA211 ESTABILISHED PATIENT [facility] CHARGE DISPOSITION & COMMUNICATION FOLLOW UP 3 MONTHS (REASON: W/C MED MGMNT LBP/UTOX) ELECTRONICALLY SIGNED BY LINO WALTON ON 04/30/2020 AT 08:28 AM EST DISCLAIMER : THIS IS A VISIT SUMMARY EXTRACTED FROM THE [employer] CHART. IT IS NOT A COPY OF THE [employer] PROGRESS NOTE. MARCIAL
== END ==
LOC: M PAIN 10:00
PROVIDERS: ATTEND Nurse Practitioner Family
DX: M54.42 Lumbago with sciatica, left side (principal); G89.29 Other chronic pain; M79.7 Fibromyalgia; J45.909 Unspecified asthma, uncomplicated; Z86.59 Personal history of other mental and behavioral disorders; K21.9 Gastro-esophageal reflux disease without esophagitis; Z87.891 Personal history of nicotine dependence; Z79.899 Other long term (current) drug therapy

== ENCOUNTER → 2020-07-23 | Outpatient (CLI) | payer OTHER ==
--- NOTE | 2020-07-24 23:21 | ECWPNPC ---
PATIENT NAME: ADY KING : 1955 GENDER: FEMALE VISIT DATE: 07/23/2020 DISCHARGE DATE: 07/23/20 1124 VISIT LOCKED DATE TIME: PHYSICIAN: NASIM GUILLEN RESOURCE: NASIM GUILLEN REASON FOR APPOINTMENT 1. W/C MED MGMNT LBP/UTOX HISTORY OF PRESENT ILLNESS GENERAL: -. FALL RISK SCREENING: SCREENING : NO FALLS REPORTED IN THE LAST YEAR. PAIN SCREENING: PATIENT HAS A COMPLAINT OF ACUTE OR CHRONIC PAIN :YES LOCATION OF PAIN:LOW BACK, LEFT HIP, RIGHT HIP, LEG(S) INTENSITY OF PAIN (SCALE OF 1 TO 10):5 WHAT DOES YOUR PAIN FEEL LIKE:ACHING, SHARP DURATION:CONTINOUS, ALL DAY, AWAKENS FROM SLEEP PAIN IS INCREASED BY:ACTIVITIES, PROLONGED STANDING, OTHERS PROLONGED WALKING PAIN IS DECREASED BY:OTHERS HEAT NURSING NOTE: -. PAIN CENTER INTAKE QUESTIONS: DO YOU HAVE A HISTORY OF MRSA? :NO DO YOU TAKE A BLOOD THINNERS? :NO DO YOU HAVE ANY BLEEDING DISORDERS? :NO ANY NEW NUMBNESS OR WEAKNESS IN YOUR LEGS OR ARMS? :YES NUMBNESS TO LEGS OCCASSIONALLY ANY PACEMAKER,DEFIBRILLATOR, OR DORSAL COLUMN STIMULATOR? :NO DO YOU HAVE ANY RASHES OR OPEN SORES? :NO ARE YOU ALLERGIC TO IV DYE? :NO ARE YOU DIABETIC? :NO ANY NEW PROBLEMS WITH YOUR MEDICATIONS? :NO HAVE YOU RECEIVED A VACCINE IN THE PAST 30 DAYS? :NO DO YOU PLAN TO RECEIVE A VACCINE IN THE NEXT 21 DAYS? :NO DO YOU NEED ANY PRESCRIPTION? :YES HYDROCODONE DO YOU TAKE ANY IMMUNOSUPPRESSIVE MEDICATIONS? :NO IS THERE A CHANCE YOU COULD BE ? :NO ARE YOU BREAST FEEDING? :NO HISTORY OF PRESENT ILLNESS: PAIN THE PATIENT DESCRIBES THE PAIN... 64 YEAR OLD FEMALE PATIENT WITH HISTORY OF CHRONIC LOW BACK PAIN. PATIENT DESCRIBES THE PAIN SHOOTING WITH A PAIN SCORE OF 5/10 AT TODAY'S VISIT. PATIENT WAS INJURED IN A WORK RELATED INJURY. PATIENT STATES THAT SHE HAS TRIED PT IN THE PAST AND IT DID NOT REALLY WORK FOR HER. PATIENT STATES THAT SHE HAS HAD ONE BACK SURGERY IN 05/20/1992. CURRENTLY THE PATIENT IS USING VICODIN, PROTONIX, , AND CYMBALTA WHICH SHE STATES KEEPS HER MOBILE AND FUNCTIONAL.DISCUSSED MEDICATION AND TREATMENT OPTIONS. CURRENT MEDICATIONS TAKING TOPIRAMATE 50 50MG TABLET 1 TAB ORAL ONCE A DAY TAKING XALATAN 0.005 % SOLUTION 1 DROP INTO AFFECTED EYE IN THE EVENING OPHTHALMIC ONCE A DAY TAKING ALBUTEROL SULFATE HFA 108 (90 BASE) MCG/ACT AEROSOL SOLUTION 2 PUFFS NEEDED INHALATION EVERY 4 HRS TAKING ATORVASTATIN CALCIUM 20 MG TABLET 1 TABLET ORALLY ONCE A DAY TAKING NITROFURANTOIN MACROCRYSTAL 100 MG CAPSULE 1 CAPSULE WITH FOOD OR MILK ORALLY DAILY TAKING ADVAIR DISKUS 100-50 MCG/DOSE AEROSOL POWDER BREATH ACTIVATED 1 PUFF INHALATION DAILY TAKING DIAZEPAM 5 MG TABLET 2 TABLETS IN THE MORNING AND 1.5 TABLETS IN THE EVENING NEEDED FOR ANXIETY ORALLY TWICE DAILY DIRECTED MDD#3.5 TAKING CYCLOBENZAPRINE HCL 10 MG TABLET TAKE ONE TABLET BY MOUTH TWICE A DAY NEEDED FOR SPASM AND PAIN ORALLY BID TAKING CYMBALTA 30 MG CAPSULE DELAYED RELEASE PARTICLES 1 CAPSULE ORALLY WITH FOOD TWICE A DAY FOR PAIN MDD2 TAKING PROTONIX 40 MG TABLET DELAYED RELEASE DIRECTED ORALLY BID FOR STOMACH PAIN MDD2 TAKING HYDROCODONE-ACETAMINOPHEN 5-325 MG TABLET 1 TABLET NEEDED ORALLY TWICE A DAY NEEDED FOR PAIN MDD 2 MDD 2 NOT-TAKING NORCO 5-325 MG TABLET 1 TABLET NEEDED ORALLY Q8H PRN PAIN MDD2, NOTES: DUPLICATE NOT-TAKING FERROUS SULFATE 325 (65 FE) MG TABLET 1 TABLET ORALLY ONCE A DAY NOT-TAKING ADVAIR DISKUS 100-50 MCG/DOSE MISCELLANEOUS 1 INHALATION DAILY, NOTES: DUPLICATE MEDICATION LIST REVIEWED AND RECONCILED WITH THE PATIENT PAST MEDICAL HISTORY SPONDYLOLITHESI/CHRONIC LOW BACK PAIN - DR. GASTELUM FOR FIBROMYALGIA ASTHMA CHRONIC CYSTITIS HISTORY OF KIDNEY STONES DEPRESSION LEFT INTERNAL CAROTID ANEURYSM - S/P COIL/STENT 01/2012; DR. BURKS GLAUCOMA - DR. GRIGGS ANXIETY WITH DIAZEPAM DEPENDENCE DIVERTICULOSIS REFLUX ESOPHAGITIS CHEMICAL GASTRITIS COLON POLYPS - TUBULAR ADENOMAS IRON DEFICIENCY ANEMIA ALLERGIES SEASONAL IC: RASH - ALLERGY SOCIAL HISTORY GENERAL: TOBACCO USE ARE YOU A:FORMER SMOKER HOW LONG HAS IT BEEN SINCE YOU LAST SMOKED?> 10 YEARS LATEX QUESTIONNAIRE LATEX ALLERGY : HAVE YOU EVER DEVELOPED ANY TYPE OF REACTION AFTER HANDLING LATEX PRODUCTS SUCH RUBBER GLOVES, CONDOMS, DIAPHRAGMS, BALLOONS, SOCKS, OR UNDERWEAR?NO LATEX ALLERGY : HAVE YOU EVER DEVELOPED ANY TYPE OF REACTION DURING OR AFTER DENTAL APPOINTMENT, VAGINAL/RECTAL EXAMINATION, SURGICAL PROCEDURE, OR ANY OTHER EXPOSURE?NO LATEX RISK : HAVE YOU EVER HAD ANY DIFFICULTY BREATHING OR HIVES AFTER EATING OR HANDLING ANY FRUITS, OR VEGETABLES; SUCH KIWI, BANANAS, STONE FRUITS, OR CHESTNUTSNO LATEX RISK : DO YOU HAVE A PREVIOUS PERSONAL HISTORY OF MORE THAN NINE SURGERIES, SPINA BIFIDA, OR REPEATED CATHERIZATIONS? YES - PLEASE INDICATE : > 9 SURGERIES LATEX RISK : ARE YOU FREQUENTLY EXPOSED TO LATEX PRODUCTS IN YOUR OCCUPATION?NO DATE ASKED : 07/23/2020 ALCOHOL USE: NO. BMI CARE GOAL FOLLOW-UP ABOVE NORMAL BMI FOLLOW-UPGIVING ENCOURAGEMENT TO EXERCISE ALCOHOL SCREENING DID YOU HAVE A DRINK CONTAINING ALCOHOL IN THE PAST YEAR?NO POINTS0 INTERPRETATIONNEGATIVE RECREATIONAL DRUG USE DRUG USE?NO PATIENT DENIES ABUSE OR MISSUSED OF ANY MEDICATION DENIES 07/26/2019 CAFFEINE CAFFEINE USE?NO SEXUAL HX HAD SEX IN THE LAST 12 MONTHS (VAGINAL, ORAL, OR ANAL)?NO HAVE YOU EVER HAD AN STD?NO HIV / HEP-C SCREENING HIV TEST OFFERED TO PATIENT:YES DATE OFFERED:10/09/2016 TEST ACCEPTED:NO HEP-C TEST OFFERED TO PATIENT:YES DATE OFFERED:10/09/2016 REASON:PATIENT DECLINED TEST ACCEPTED:NO REASON:PATIENT DECLINED GNOSTICISM [id number] CHURCH LANGUAGE LANGUAGES SPOKEN:MACEDONIAN EDUCATION LEVEL OF EDUCATION:NOT FINISHED COLLEGE LEARNING BARRIERS / SPECIAL NEEDS CHANGE FROM LAST VISIT?NO BARRIERS TO LEARNING?NO HEARING IMPAIRED?NO VISION IMPAIRED?YES :CORRECTIVE LENSES COGNITIVELY IMPAIRED?NO READINESS TO LEARN?YES LEARNING PREFERENCES?NO LEARNING CAPABILITIES PRESENT?YES EMOTIONAL BARRIERS?NO SPECIAL DEVICES?NO A P SUPERVISOR NEEDED?NO DOMESTIC VIOLENCE DO YOU FEEL SAFE IN YOUR ENVIRONMENT?YES PATIENT DESCRIBES PAIN : ACHING, HAVE IT ALL THE TIME, THROBBING, SHOOTING, FROM 0-10, WHAT LEVEL IS YOUR PAIN TODAY? 7 07/26/2019, PRECIPITATING FACTORS OVERDOING THINGS, ALLEVIATING FACTORS RESTING, WALKING. - PFS REFERRAL NEEDED?NO CLERGY REFERRAL NEEDED?NO PUBLIC HEALTH REFERRAL NEEDED?NO WAS THE PROVIDER NOTIFIED OF ANY PERTINENT INFO?YES N/A HAS THE PATIENT BEEN EDUCATED REGARDING HIS/HER PLAN OF CARE?YES HAS THE PATIENT BEEN EDUCATED REGARDING PAIN, THE RISK FOR PAIN, THE IMPORTANCE OF EFFECTIVE PAIN MANAGEMENT, AND THE PAIN ASSESSMENT PROCESS?YES ADVANCE DIRECTIVE ADVANCE DIRECTIVE DISCUSSED WITH PATIENT:YES 03/31/2019 PATIENT GIVEN INFORMATION ON HCP AT THIS TIME, DECLINES ASSISTANCE IN FILLING OUT FORM. JS REVIEW OF SYSTEMS CONSTITUTIONAL: ANY RECENT FEVER NO . CHILLS NO . WEIGHT CHANGE OF UNKNOWN REASONS NO . GASTROENTEROLOGY: NEW UNEXPLAINABLE CHANGES IN BOWEL CONTROL NO . CONSTIPATION NO . GENITOURINARY: ANY NEW CHANGE IN BLADDER CONTROL? NO . NEUROLOGY: NEW ONSET DIZZINESS OR NEUROLOGICAL CHANGES NOT MENTIONED NO . NEW NUMBNESS OR PAIN PATTERNS NOT MENTIONED AND PERTINENT TO TODAY'S VISIT NO . CARDIOLOGY: NEW CHEST PRESSURE NO . PATIENT DENIES NO . RESPIRATORY: UNEXPLAINABLE COUGH NO . NEW SHORTNESS OF BREATH NO . VITAL SIGNS WT 214.6 LBS, HT 66", BMI 34.63 INDEX, BP 161/82 MM HG, HR 108 /MIN, RR 18 /MIN, TEMP 96.3 F, OXYGEN SAT % 97%, SAFE IN ENV? (Y/N) YES, NA INITIALS IN 10:23, REVIEWED BY: Connor PAREDES RN. EXAMINATION GENERAL EXAMINATION: GENERAL AWAKE,ALERT ,PLEASANT . PSYCH AFFECT NORMAL . LUNGS: LUNG SINHA ARE CLEAR TO AUSCULTATION BILATERALLY. GOOD MOVEMENT OF AIR . HEART: S1, S2 IN A REGULAR RATE AND RHYTHM. NO SIGNIFICANT MURMURS, RUBS OR GALLOPS NOTED . ASSESSMENTS CHRONIC PRESCRIPTION OPIATE USE - Z79.891 (PRIMARY) LUMBAGO WITH SCIATICA, LEFT SIDE - M54.42 TREATMENT CHRONIC PRESCRIPTION OPIATE USE REFILL CYMBALTA CAPSULE DELAYED RELEASE PARTICLES, 30 MG, 1 CAPSULE, ORALLY WITH FOOD, TWICE A DAY FOR PAIN MDD2, 30 DAYS, 60, REFILLS 5 REFILL PROTONIX TABLET DELAYED RELEASE, 40 MG, DIRECTED, ORALLY, BID FOR STOMACH PAIN MDD2, 30 DAYS, 60, REFILLS 2 REFILL HYDROCODONE-ACETAMINOPHEN TABLET, 5-325 MG, 1 TABLET NEEDED, ORALLY, TWICE A DAY NEEDED FOR PAIN MDD 2 MDD 2, 30 DAYS, 60, REFILLS 0 LAB: URINE TEST GROUP ESEQUIEL PAREDES 07/23/2020 11:18:38 AM > LAST DOSE: VALIUM 07/23/20 @ 0800; HYDROCODONE 07/22/20 @ 2000 NOTES: ISTOP REGISTRY REVIEWED AND DEMONSTRATES COMPLLIANCE. (REF # ) BRINGS IN MEDICATIONS WHICH IS APPROPRIATE FOR WHAT WAS DISPENSED. RECENT URINE TOXICOLOGY REVIEWED. NO UNAUTHORIZED MEDICATIONS. NO ILLICIT SUBSTANCES AND PRESCRIBED MEDICATIONS WERE PRESENT. , RISKS OF NARCOTIC/OPIOD MEDICATIONS INCLUDES BUT IS NOT LIMITED TO RISK OF DEPENDANCE/DEVELOPMENT OF ADDICTION, MOOD DISTURBANCE AND DEPRESSION, OSTEOPOROSIS, HORMONAL AND LABIDAL CHANGES, RESPIRATORY DEPRESSION AND . PATIENT IS ADVISED NOT TO DRIVE OR DRINK ALCOHOL WHILE ON THESE MEDICATIONS. PROCEDURES PN WORKMANS' COMP OPINION IN YOUR OPINION, WAS THE INCIDENT THAT THE PATIENT DESCRIBED THE COMPETENT MEDICAL CAUSE OF THIS INJURY/ILLNESS? YES ARE THE PATIENT'S COMPLAINTS CONSISTENT WITH HIS/HER HISTORY OF THE INJURY/ILLNESS? YES IS THE PATIENT'S HISTORY OF THE INJURY/ILLNESS CONSISTENT WITH YOUR OBJECTIVE FINDING? YES WHAT IS THE PERCENTAGE OF TEMPORARY IMPAIRMENT? MODERATE TO MARKED = 66.7% IS THE PATIENT WORKING? NO DOCTOR ON SITE: SHELBI ERAZO MD PROCEDURE CODES FA211 ESTABILISHED PATIENT [facility] CHARGE DISPOSITION & COMMUNICATION FOLLOW UP 3 MONTHS (REASON: W/C MED MGMNT/REVIEW UTOX) ELECTRONICALLY SIGNED BY LINO WALTON ON 07/24/2020 AT 08:18 AM EDT DISCLAIMER : THIS IS A VISIT SUMMARY EXTRACTED FROM THE [employer] CHART. IT IS NOT A COPY OF THE [employer] PROGRESS NOTE. MARCIAL
== END ==
LOC: M PAIN 10:00
PROVIDERS: ATTEND Nurse Practitioner Family
DX: M54.42 Lumbago with sciatica, left side (principal); M79.7 Fibromyalgia; J45.909 Unspecified asthma, uncomplicated; N30.20 Other chronic cystitis without hematuria; F32.9 Major depressive disorder, single episode, unspecified; H40.9 Unspecified glaucoma; M43.16 Spondylolisthesis, lumbar region; F41.9 Anxiety disorder, unspecified; K21.00 Gastro-esophageal reflux disease with esophagitis, without bleeding; D50.9 Iron deficiency anemia, unspecified; Z86.010 Personal history of colon polyps; Z87.891 Personal history of nicotine dependence; Z79.891 Long term (current) use of opiate analgesic

== ENCOUNTER → 2020-10-23 | Outpatient (CLI) | payer OTHER ==
--- NOTE | 2020-10-24 03:09 | ECWPNPC ---
PATIENT NAME: ADY KING : 1955 GENDER: FEMALE VISIT DATE: 10/23/2020 DISCHARGE DATE: 10/23/20 1020 VISIT LOCKED DATE TIME: PHYSICIAN: NASIM GUILLEN RESOURCE: NASIM GUILLEN REASON FOR APPOINTMENT 1. W/C MED MGMNT/REVIEW UTOX HISTORY OF PRESENT ILLNESS GENERAL: -. FALL RISK SCREENING: SCREENING : NO FALLS REPORTED IN THE LAST YEAR. PAIN SCREENING: PATIENT HAS A COMPLAINT OF ACUTE OR CHRONIC PAIN :YES LOCATION OF PAIN:LOW BACK INTENSITY OF PAIN (SCALE OF 1 TO 10):7 WHAT DOES YOUR PAIN FEEL LIKE:CONTINOUS, THROBBING DURATION:CONTINOUS, CONSTANT, ALL DAY PAIN IS INCREASED BY:ACTIVITIES PAIN IS DECREASED BY:USE OF PAIN MEDICATIONS NURSING NOTE: -. PAIN CENTER INTAKE QUESTIONS: DO YOU HAVE A HISTORY OF MRSA? :NO DO YOU TAKE A BLOOD THINNERS? :NO DO YOU HAVE ANY BLEEDING DISORDERS? :NO ANY NEW NUMBNESS OR WEAKNESS IN YOUR LEGS OR ARMS? :YES NUMBNESS TO LEGS OCCASSIONALLY ANY PACEMAKER,DEFIBRILLATOR, OR DORSAL COLUMN STIMULATOR? :NO DO YOU HAVE ANY RASHES OR OPEN SORES? :NO ARE YOU ALLERGIC TO IV DYE? :NO ARE YOU DIABETIC? :NO ANY NEW PROBLEMS WITH YOUR MEDICATIONS? :NO HAVE YOU RECEIVED A VACCINE IN THE PAST 30 DAYS? :NO DO YOU PLAN TO RECEIVE A VACCINE IN THE NEXT 21 DAYS? :NO DO YOU NEED ANY PRESCRIPTION? :YES HYDROCODONE DO YOU TAKE ANY IMMUNOSUPPRESSIVE MEDICATIONS? :NO IS THERE A CHANCE YOU COULD BE ? :NO ARE YOU BREAST FEEDING? :NO HISTORY OF PRESENT ILLNESS: PAIN THE PATIENT DESCRIBES THE PAIN... HERE FOR FOLLOW-UP AND MEDICATION MANAGEMENT FOR CHRONIC LOW BACK PAIN. THIS IS A WORK-RELATED INJURY. PATIENT STATES THAT SHE HAS TRIED PT IN THE PAST AND IT DID NOT REALLY WORK FOR HER. PATIENT STATES THAT SHE HAS HAD ONE BACK SURGERY IN 05/20/1992. CURRENTLY THE PATIENT IS USING VICODIN, PROTONIX, , AND CYMBALTA WHICH SHE STATES KEEPS HER MOBILE AND FUNCTIONAL.DISCUSSED MEDICATION AND TREATMENT OPTIONS. CURRENT MEDICATIONS TAKING TOPIRAMATE 50 50MG TABLET 1 TAB ORAL ONCE A DAY TAKING XALATAN 0.005 % SOLUTION 1 DROP INTO AFFECTED EYE IN THE EVENING OPHTHALMIC ONCE A DAY TAKING ALBUTEROL SULFATE HFA 108 (90 BASE) MCG/ACT AEROSOL SOLUTION 2 PUFFS NEEDED INHALATION EVERY 4 HRS TAKING ATORVASTATIN CALCIUM 20 MG TABLET 1 TABLET ORALLY ONCE A DAY TAKING NITROFURANTOIN MACROCRYSTAL 100 MG CAPSULE 1 CAPSULE WITH FOOD OR MILK ORALLY DAILY TAKING ADVAIR DISKUS 100-50 MCG/DOSE AEROSOL POWDER BREATH ACTIVATED 1 PUFF INHALATION DAILY TAKING DIAZEPAM 5 MG TABLET 2 TABLETS IN THE MORNING AND 1.5 TABLETS IN THE EVENING NEEDED FOR ANXIETY ORALLY TWICE DAILY DIRECTED MDD#3.5 TAKING CYCLOBENZAPRINE HCL 10 MG TABLET TAKE ONE TABLET BY MOUTH TWICE A DAY NEEDED FOR SPASM AND PAIN ORALLY BID TAKING CYMBALTA 30 MG CAPSULE DELAYED RELEASE PARTICLES 1 CAPSULE ORALLY WITH FOOD TWICE A DAY FOR PAIN MDD2 TAKING PROTONIX 40 MG TABLET DELAYED RELEASE DIRECTED ORALLY BID FOR STOMACH PAIN MDD2 TAKING HYDROCODONE-ACETAMINOPHEN 5-325 MG TABLET 1 TABLET NEEDED ORALLY TWICE A DAY NEEDED FOR PAIN MDD 2 MDD 2 NOT-TAKING NORCO 5-325 MG TABLET 1 TABLET NEEDED ORALLY Q8H PRN PAIN MDD2, NOTES: DUPLICATE NOT-TAKING FERROUS SULFATE 325 (65 FE) MG TABLET 1 TABLET ORALLY ONCE A DAY NOT-TAKING ADVAIR DISKUS 100-50 MCG/DOSE MISCELLANEOUS 1 INHALATION DAILY, NOTES: DUPLICATE MEDICATION LIST REVIEWED AND RECONCILED WITH THE PATIENT PAST MEDICAL HISTORY SPONDYLOLITHESI/CHRONIC LOW BACK PAIN - DR. GASTELUM FOR FIBROMYALGIA ASTHMA CHRONIC CYSTITIS HISTORY OF KIDNEY STONES DEPRESSION LEFT INTERNAL CAROTID ANEURYSM - S/P COIL/STENT 01/2012; DR. VITALIY SPICER - DR. GRIGGS ANXIETY WITH DIAZEPAM DEPENDENCE DIVERTICULOSIS REFLUX ESOPHAGITIS CHEMICAL GASTRITIS COLON POLYPS - TUBULAR ADENOMAS IRON DEFICIENCY ANEMIA SLEEP STUDY ALLERGIES SEASONAL IC: RASH - ALLERGY SURGICAL HISTORY LAMINECTOMY AND DISCECTOMY WITH REMOVAL OF DISC FRAGMENT 05-20-1992 EGD WITH ESOPHAGUS AND STOMACH BIOPSIES 01/2002 CEREBRAL ANEURYSM 2010 APPENDECTOMY COLONOSCOPY - SHOWED INTERNAL/EXTERNAL HEMORRHOIDS, DIVERTICULOSIS; DR. ENGEL; REPEAT Q5Y 07/[address] JOSE INIGUEZ 09/2016 COLONOSCOPY - 2 TUBULAR ADNOMAS - DR. WILLARD; R/P IN 1 YEAR 05/25/2017 EGD - BENIGN GASTRIC POLYPS RESECTED, H. PYLORI NEGATIVE - DR. WILLARD 05/25/2017 LEFT KNEE REPLACEMENT 04/2018 SLEEP STUDY 11/03/2020 SOCIAL HISTORY GENERAL: TOBACCO USE ARE YOU A:FORMER SMOKER HOW LONG HAS IT BEEN SINCE YOU LAST SMOKED?> 10 YEARS LATEX QUESTIONNAIRE LATEX ALLERGY : HAVE YOU EVER DEVELOPED ANY TYPE OF REACTION AFTER HANDLING LATEX PRODUCTS SUCH RUBBER GLOVES, CONDOMS, DIAPHRAGMS, BALLOONS, SOCKS, OR UNDERWEAR?NO LATEX ALLERGY : HAVE YOU EVER DEVELOPED ANY TYPE OF REACTION DURING OR AFTER DENTAL APPOINTMENT, VAGINAL/RECTAL EXAMINATION, SURGICAL PROCEDURE, OR ANY OTHER EXPOSURE?NO LATEX RISK : HAVE YOU EVER HAD ANY DIFFICULTY BREATHING OR HIVES AFTER EATING OR HANDLING ANY FRUITS, OR VEGETABLES; SUCH KIWI, BANANAS, STONE FRUITS, OR CHESTNUTSNO LATEX RISK : DO YOU HAVE A PREVIOUS PERSONAL HISTORY OF MORE THAN NINE SURGERIES, SPINA BIFIDA, OR REPEATED CATHERIZATIONS? YES - PLEASE INDICATE : > 9 SURGERIES LATEX RISK : ARE YOU FREQUENTLY EXPOSED TO LATEX PRODUCTS IN YOUR OCCUPATION?NO DATE ASKED : 10/23/2020 ALCOHOL USE: NO. BMI CARE GOAL FOLLOW-UP ABOVE NORMAL BMI FOLLOW-UPGIVING ENCOURAGEMENT TO EXERCISE ALCOHOL SCREENING DID YOU HAVE A DRINK CONTAINING ALCOHOL IN THE PAST YEAR?NO POINTS0 INTERPRETATIONNEGATIVE RECREATIONAL DRUG USE DRUG USE?NO PATIENT DENIES ABUSE OR MISSUSED OF ANY MEDICATION DENIES 07/26/2019 CAFFEINE CAFFEINE USE?NO SEXUAL HX HAD SEX IN THE LAST 12 MONTHS (VAGINAL, ORAL, OR ANAL)?NO HAVE YOU EVER HAD AN STD?NO HIV / HEP-C SCREENING HIV TEST OFFERED TO PATIENT:YES DATE OFFERED:10/09/2016 TEST ACCEPTED:NO REASON:PATIENT DECLINED HEP-C TEST OFFERED TO PATIENT:YES DATE OFFERED:10/09/2016 TEST ACCEPTED:NO REASON:PATIENT DECLINED ORIENTAL ORTHODOX [id number] NONDENOMINATIONAL LANGUAGE LANGUAGES SPOKEN:BURMESE EDUCATION LEVEL OF EDUCATION:NOT FINISHED COLLEGE LEARNING BARRIERS / SPECIAL NEEDS CHANGE FROM LAST VISIT?NO BARRIERS TO LEARNING?NO HEARING IMPAIRED?NO VISION IMPAIRED?YES :CORRECTIVE LENSES COGNITIVELY IMPAIRED?NO READINESS TO LEARN?YES LEARNING PREFERENCES?NO LEARNING CAPABILITIES PRESENT?YES EMOTIONAL BARRIERS?NO SPECIAL DEVICES?NO EDGE INKER HEELS NEEDED?NO DOMESTIC VIOLENCE DO YOU FEEL SAFE IN YOUR ENVIRONMENT?YES PATIENT DESCRIBES PAIN : ACHING, HAVE IT ALL THE TIME, THROBBING, SHOOTING, FROM 0-10, WHAT LEVEL IS YOUR PAIN TODAY? 7 07/26/2019, PRECIPITATING FACTORS OVERDOING THINGS, ALLEVIATING FACTORS RESTING, WALKING. - PFS REFERRAL NEEDED?NO CLERGY REFERRAL NEEDED?NO PUBLIC HEALTH REFERRAL NEEDED?NO WAS THE PROVIDER NOTIFIED OF ANY PERTINENT INFO?YES N/A HAS THE PATIENT BEEN EDUCATED REGARDING HIS/HER PLAN OF CARE?YES HAS THE PATIENT BEEN EDUCATED REGARDING PAIN, THE RISK FOR PAIN, THE IMPORTANCE OF EFFECTIVE PAIN MANAGEMENT, AND THE PAIN ASSESSMENT PROCESS?YES ADVANCE DIRECTIVE ADVANCE DIRECTIVE DISCUSSED WITH PATIENT:YES 03/31/2019 PATIENT GIVEN INFORMATION ON HCP AT THIS TIME, DECLINES ASSISTANCE IN FILLING OUT FORM. JS HOSPITALIZATION/MAJOR DIAGNOSTIC PROCEDURE SURGERY RELATED REVIEW OF SYSTEMS CONSTITUTIONAL: ANY RECENT FEVER NO . CHILLS NO . WEIGHT CHANGE OF UNKNOWN REASONS NO . GASTROENTEROLOGY: NEW UNEXPLAINABLE CHANGES IN BOWEL CONTROL NO . CONSTIPATION NO . GENITOURINARY: ANY NEW CHANGE IN BLADDER CONTROL? NO . NEUROLOGY: NEW ONSET DIZZINESS OR NEUROLOGICAL CHANGES NOT MENTIONED NO . NEW NUMBNESS OR PAIN PATTERNS NOT MENTIONED AND PERTINENT TO TODAY'S VISIT NO . CARDIOLOGY: NEW CHEST PRESSURE NO . PATIENT DENIES NO . RESPIRATORY: UNEXPLAINABLE COUGH NO . NEW SHORTNESS OF BREATH NO . VITAL SIGNS WT 222.0 LBS, WT-KG 100.7 KG, HT 66", BMI 35.83 INDEX, BP 135/85 MM HG, HR 113 /MIN, RR 18 /MIN, TEMP 97.1 F, OXYGEN SAT % 97%, SAFE IN ENV? (Y/N) YES, NA INITIALS AW [id number].SNOW HANCOCK. EXAMINATION GENERAL EXAMINATION: GENERAL AWAKE,ALERT ,PLEASANT . PSYCH AFFECT NORMAL . LUNGS: LUNG SINHA ARE CLEAR TO AUSCULTATION BILATERALLY. GOOD MOVEMENT OF AIR . HEART: S1, S2 IN A REGULAR RATE AND RHYTHM. NO SIGNIFICANT MURMURS, RUBS OR GALLOPS NOTED . ASSESSMENTS LUMBAGO WITH SCIATICA, LEFT SIDE - M54.42 (PRIMARY) TREATMENT LUMBAGO WITH SCIATICA, LEFT SIDE CONTINUE PROTONIX TABLET DELAYED RELEASE, 40 MG, DIRECTED, ORALLY, BID FOR STOMACH PAIN MDD2 REFILL HYDROCODONE-ACETAMINOPHEN TABLET, 5-325 MG, 1 TABLET NEEDED, ORALLY, TWICE A DAY NEEDED FOR PAIN MDD 2 MDD 2, 30 DAYS, 60, REFILLS 0 STOP NORCO TABLET, 5-325 MG, 1 TABLET NEEDED, ORALLY, Q8H PRN PAIN MDD2, NOTES: DUPLICATE NOTES: ISTOP REGISTRY REVIEWED AND DEMONSTRATES COMPLLIANCE. BRINGS IN MEDICATIONS WHICH IS APPROPRIATE FOR WHAT WAS DISPENSED. RECENT URINE TOXICOLOGY REVIEWED. NO UNAUTHORIZED MEDICATIONS. NO ILLICIT SUBSTANCES AND PRESCRIBED MEDICATIONS WERE PRESENT. PROCEDURES PN WORKMANS' COMP OPINION IN YOUR OPINION, WAS THE INCIDENT THAT THE PATIENT DESCRIBED THE COMPETENT MEDICAL CAUSE OF THIS INJURY/ILLNESS? YES ARE THE PATIENT'S COMPLAINTS CONSISTENT WITH HIS/HER HISTORY OF THE INJURY/ILLNESS? YES IS THE PATIENT'S HISTORY OF THE INJURY/ILLNESS CONSISTENT WITH YOUR OBJECTIVE FINDING? YES WHAT IS THE PERCENTAGE OF TEMPORARY IMPAIRMENT? MODERATE TO MARKED = 66.7% IS THE PATIENT WORKING? NO DOCTOR ON SITE: SHELBI ERAZO MD PROCEDURE CODES FA211 ESTABILISHED PATIENT [facility] CHARGE DISPOSITION & COMMUNICATION FOLLOW UP 3 MONTHS (REASON: MED MGMNT) ELECTRONICALLY SIGNED BY LINO WALTON ON 10/23/2020 AT 03:04 PM EDT DISCLAIMER : THIS IS A VISIT SUMMARY EXTRACTED FROM THE [employer] CHART. IT IS NOT A COPY OF THE [employer] PROGRESS NOTE. MARCIAL
== END ==
LOC: M PAIN 09:30
PROVIDERS: ATTEND Nurse Practitioner Family
DX: M54.42 Lumbago with sciatica, left side (principal); M79.7 Fibromyalgia; J45.909 Unspecified asthma, uncomplicated; F32.9 Major depressive disorder, single episode, unspecified; H40.9 Unspecified glaucoma; F41.9 Anxiety disorder, unspecified; K21.00 Gastro-esophageal reflux disease with esophagitis, without bleeding; D50.9 Iron deficiency anemia, unspecified; N30.20 Other chronic cystitis without hematuria; Z87.891 Personal history of nicotine dependence; Z79.891 Long term (current) use of opiate analgesic; Z79.899 Other long term (current) drug therapy

== ENCOUNTER → 2020-11-03 | Outpatient (CLI) | payer MEDICARE ==
--- NOTE | 2020-11-05 16:16 | SLEEPCENT ---
DATE: 11/03/2020 ORDERED BY: LINO Bond Nocturnal polysomnography was performed for evaluation of sleep physiology in this patient with a history of excessive somnolence and nonrestorative sleep. Seven hours and 31 minutes of data were reviewed. There were 360 minutes of sleep identified. Sleep latency was prolonged at 34 minutes. REM latency was prolonged at 339 minutes. Sleep architecture showed poor progression and some fragmentation. There was one REM cycle late in the study. Overall sleep efficiency was 81.4%. The electrocardiogram showed a sinus rhythm with an average heart rate of 80 beats per minute. Rate ranged 70-90. EEG showed normal waveforms for wake and sleep. There were 156 respiratory events identified of 10 seconds in duration or greater for an apnea-hypopnea index of 26. The events were more significant in stage REM but not exclusive to that stage. They were more frequent in the supine posture. Arousals from respiratory events occurred 7.3 times per hour, and oxygen desaturations were seen into the 70s. There was some activity in the limb leads but arousals from limb events were few. IMPRESSION: Obstructive sleep apnea syndrome (G47.33). Apnea-hypopnea index 26. RECOMMENDATION: The patient should be encouraged to return to [facility] for [facility]. In the interim, alcohol and sedative avoidance should be practiced and caution exercised during the operation of motor vehicles. cc: ROGER Boyd
== END ==
LOC: M SLEEP 20:00
PROVIDERS: ATTEND Nurse Practitioner Family
DX: G47.33 Obstructive sleep apnea (adult) (pediatric) (principal)

== ENCOUNTER → 2020-12-14 | Outpatient (CLI) | payer MEDICARE ==
--- NOTE | 2020-12-17 16:30 | SLEEPCENT ---
DATE: 12/14/2020 ORDERED BY: LINO Bond Nocturnal polysomnography was performed for the titration of pressure therapy in this patient with obstructive sleep apnea syndrome, apnea-hypopnea index of 26. For testing the patient was fit with a ResMed AirFit F20 full face mask of medium size, 4 cm of water pressure were applied to the circuit, and the lights were extinguished. Eight hours and 2 minutes of data were reviewed. There were 385.5 minutes of sleep identified. Sleep latency was normal at 13 minutes. REM latency was mildly prolonged at 187 minutes. Sleep architecture improved. There were two REM cycles over the course of the study and overall sleep efficiency was 81.6%. The electrocardiogram showed a sinus rhythm with an average heart rate of 80 beats per minute. EEG showed normal waveforms for wake and sleep. Respiratory events were fully palliated with CPAP at a pressure of +8. There was some minor limb activity and remaining measures of sleep physiology were normal. IMPRESSIONS: Obstructive sleep apnea syndrome (G47.33). RECOMMENDATION: Nightly use of pressure therapy 8 cm of water. cc: ROGER Boyd
== END ==
LOC: M SLEEP 20:00
PROVIDERS: ATTEND Nurse Practitioner Family
DX: G47.33 Obstructive sleep apnea (adult) (pediatric) (principal)

== ENCOUNTER → 2021-02-21 | Outpatient (CLI) | payer OTHER | LOC: M PAIN 10:00 | PROVIDERS: ATTEND Anesthesiology | DX: M51.16 Intervertebral disc disorders with radiculopathy, lumbar region (principal); M79.7 Fibromyalgia; J45.909 Unspecified asthma, uncomplicated; F32.A Depression, unspecified; H40.9 Unspecified glaucoma; F41.9 Anxiety disorder, unspecified; K21.00 Gastro-esophageal reflux disease with esophagitis, without bleeding; D50.9 Iron deficiency anemia, unspecified; Z79.891 Long term (current) use of opiate analgesic; Z79.899 Other long term (current) drug therapy; Z87.891 Personal history of nicotine dependence ==

== ENCOUNTER → 2021-06-06 | Outpatient (CLI) | payer MEDICARE ==
[~2021-06-06] MED LIST changes: +CARB1DRO11 OU; -THERSOL2 OU
== END ==
LOC: M SLEEP 20:00
PROVIDERS: ATTEND Physician Assistant
DX: G47.33 Obstructive sleep apnea (adult) (pediatric) (principal)

== ENCOUNTER 2021-06-21 08:10 | Emergency (ER) | payer MEDICARE ==
[2021-06-21] MEDS ORDERED: methocarbamoL 500 MG TAB PO ONE (12:00)
[2021-06-21] MEDS ORDERED: LIDOCAINE 5% (LIDODERM) PATCH TD ONE (12:00)
[2021-06-21] MEDS ORDERED: KETOROLAC 30 MG/ML 1ML VIAL IV ONE (12:00)
[2021-06-21] MEDS ORDERED: KETOROLAC 30 MG/ML 1ML VIAL IM ONE (12:15)
[2021-06-21] MEDS ORDERED: LIDO5DIS41 TOP (13:45)
[2021-06-21] MEDS ORDERED: METH-1164 PO (13:45)
[2021-06-21 14:10] VITALS: BP 152/78
[2021-06-22] MEDS ORDERED: **NOTE PATIENT COMMENT** MISC XX ONE
== END 2021-06-21 14:08 | disposition home or self-care (01) ==
LOC: M ED 08:10
DX: M54.6 Pain in thoracic spine (principal); G89.29 Other chronic pain; J45.909 Unspecified asthma, uncomplicated; K21.9 Gastro-esophageal reflux disease without esophagitis; K58.9 Irritable bowel syndrome, unspecified; M79.7 Fibromyalgia; Z79.899 Other long term (current) drug therapy; Z87.891 Personal history of nicotine dependence
CPT/HCPCS: 71046; 96372; 99283; J1885

== ENCOUNTER → 2021-10-25 | Outpatient (CLI) | payer MEDICARE ==
[~2021-10-25] MED LIST changes: +LIDO5DIS41 TOP; +METH-1164 PO
[2021-10-25 11:43] LABS: BASO # 0.1 10^3/uL (0.0-0.2); BASO % 0.6 % (0.0-1.0); EOS # 0.2 10^3/uL (0.0-0.5); EOS % 2.9 % (0.0-3.0); HEMATOCRIT 39.3 % (36.0-47.0); HEMOGLOBIN 11.7 g/dl (12.0-15.5); LYMPH # 1.7 10^3/uL (1.5-5.0); LYMPH % 21.8 % (24.0-44.0); MEAN CORPUSCULAR HEMOGLOBIN 24.5 pg (27.0-33.0); MEAN CORPUSCULAR HGB CONC 29.8 g/dl (32.0-36.5); MEAN CORPUSCULAR VOLUME 82.4 fl (80.0-96.0); MONO # 0.6 10^3/uL (0.0-0.8); MONO % 7.8 % (2.0-8.0); NEUTROPHILS # 5.2 10^3/uL (1.5-8.5); NEUTROPHILS % 66.8 % (36.0-66.0); PLATELET COUNT, AUTOMATED 346 10^3/uL (150-450); RED BLOOD COUNT 4.77 10^6/uL (4.00-5.40); WHITE BLOOD COUNT 7.8 10^3/uL (4.0-10.0)
[2021-10-25 12:03] LABS: HEMOGLOBIN A1c 5.8 %
[2021-10-25 12:33] LABS: ALBUMIN 3.5 GM/DL (3.2-5.2); ALT/SGPT 25 U/L (12-78); BILIRUBIN,TOTAL 0.6 MG/DL (0.2-1.0); BLOOD UREA NITROGEN 17 MG/DL (7-18); CALCIUM LEVEL 9.3 MG/DL (8.8-10.2); CARBON DIOXIDE LEVEL 27 MEQ/L (21-32); CHLORIDE LEVEL 108 MEQ/L (98-107); CHOLESTEROL LEVEL 187 MG/DL (<200); CHOLESTEROL RISK RATIO 2.968 (<5); CREATININE FOR GFR 0.73 MG/DL (0.55-1.30); FREE T4 0.73 NG/DL (0.76-1.46); GLOMERULAR FILTRATION RATE > 60.0 (>45); GLUCOSE, FASTING 95 MG/DL (70-100); HDL CHOLESTEROL 63 MG/DL (>40); LDL CHOLESTEROL 95 MG/DL (<100); NON-HDL-C 124 MG/DL; POTASSIUM SERUM 4.1 MEQ/L (3.5-5.1); SODIUM LEVEL 140 MEQ/L (136-145); TOTAL PROTEIN 7.3 GM/DL (6.4-8.2); TRIGLYCERIDES LEVEL 143 MG/DL (<150)
== END ==
LOC: M PLALAB 09:12
PROVIDERS: ATTEND Nurse Practitioner Adult Health
DX: E78.2 Mixed hyperlipidemia (principal); Z79.899 Other long term (current) drug therapy

== ENCOUNTER → 2021-11-14 | Outpatient (CLI) | payer OTHER ==
[2021-11-14 18:04] LABS: BLOOD UREA NITROGEN 19 MG/DL (7-18); CREATININE FOR GFR 0.78 MG/DL (0.55-1.30); GLOMERULAR FILTRATION RATE > 60.0 (>45)
== END ==
LOC: M PLALAB 14:50
PROVIDERS: ATTEND Pain Medicine Interventional Pain Medicine
DX: M96.1 Postlaminectomy syndrome, not elsewhere classified (principal)

== ENCOUNTER → 2021-11-20 | Outpatient (CLI) | payer OTHER ==
[~2021-11-20] MED LIST changes: +PROHANCE 279.3MG/ML 15ML VIAL ONE; +PROHANCE 279.3MG/ML 5ML VIAL ONE
== END ==
LOC: M PLAIMG 07:35
PROVIDERS: ATTEND Pain Medicine Interventional Pain Medicine
DX: M96.1 Postlaminectomy syndrome, not elsewhere classified (principal)
CPT/HCPCS: 72158; A9576

== ENCOUNTER → 2022-02-06 | Outpatient (CLI) | payer MEDICARE ==
[~2022-02-06] MED LIST changes: -PROHANCE 279.3MG/ML 15ML VIAL ONE; -PROHANCE 279.3MG/ML 5ML VIAL ONE
== END ==
LOC: M WHC 12:53
PROVIDERS: ATTEND Family Medicine
DX: Z12.31 Encounter for screening mammogram for malignant neoplasm of breast (principal); M85.852 Other specified disorders of bone density and structure, left thigh; M85.88 Other specified disorders of bone density and structure, other site

== ENCOUNTER → 2022-11-13 | Outpatient (CLI) | payer MEDICARE ==
[2022-11-13 15:39] LABS: BASO # 0.1 10^3/uL (0.0-0.2); BASO % 0.5 % (0.0-1.0); EOS # 0.3 10^3/uL (0.0-0.5); EOS % 3.4 % (0.0-3.0); HEMOGLOBIN 11.1 g/dl (12.0-15.5); LYMPH # 1.5 10^3/uL (1.5-5.0); LYMPH % 15.3 % (24.0-44.0); MEAN CORPUSCULAR HGB CONC 28.5 g/dl (32.0-36.5); MEAN CORPUSCULAR VOLUME 77.2 fl (80.0-96.0); MONO # 0.8 10^3/uL (0.0-0.8); MONO % 8.9 % (2.0-8.0); NEUTROPHILS # 6.8 10^3/uL (1.5-8.5); NEUTROPHILS % 71.7 % (36.0-66.0); PLATELET COUNT, AUTOMATED 304 10^3/uL (150-450); RED BLOOD COUNT 5.05 10^6/uL (4.00-5.40); WHITE BLOOD COUNT 9.5 10^3/uL (4.0-10.0)
[2022-11-13 15:57] LABS: FERRITIN 4.3 NG/ML (7.3-270.7); LIPASE 36 U/L (12-53)
[2022-11-13 15:59] LABS: AMYLASE 48 U/L (30-118); IRON (FE) 22 UG/DL (50-170); PERCENT SATURATION 6.5 % (13.2-45.0); TOTAL IRON BINDING CAPACITY 338 UG/DL (250-425)
[2022-11-13 16:00] LABS: ALBUMIN 3.5 G/DL (3.2-5.2); ALKALINE PHOSPHATASE 140 U/L (46-116); ALT/SGPT 26 U/L (7.0-40); AST/SGOT 16 U/L (<34); BILIRUBIN,TOTAL 0.5 MG/DL (0.3-1.2); BLOOD UREA NITROGEN 15 MG/DL (9-23); CALCIUM LEVEL 9.4 MG/DL (8.3-10.6); CARBON DIOXIDE LEVEL 25 MMOL/L (20-31); CHLORIDE LEVEL 108 MMOL/L (98-107); CREATININE FOR GFR 0.66 MG/DL (0.55-1.30); GLOMERULAR FILTRATION RATE > 60.0 (>45); GLUCOSE, FASTING 107 MG/DL (74-106); POTASSIUM SERUM 4.7 MMOL/L (3.5-5.1); SODIUM LEVEL 140 MMOL/L (136-145); TOTAL PROTEIN 6.3 G/DL (5.7-8.2)
== END ==
LOC: M PLALAB 10:46
PROVIDERS: ATTEND Family Medicine
DX: R19.7 Diarrhea, unspecified (principal)

== ENCOUNTER 2022-12-04 14:40 | Outpatient (CLI) | payer MEDICARE ==
[2022-12-04 14:40] VITALS: BP 110/61; O2SAT 99
[~2022-12-04 14:40] MED LIST changes: +DIAZ-654 PO; -VALI10TA PO
[2022-12-04] MEDS ORDERED: FERRIC CARBOXYMALTOSE INJ 750 MG in NS 250 ML (>50kg) IV ONE ×3 (14:50)
[2022-12-04 16:44] VITALS: BP 129/66; O2SAT 97
== END 2022-12-04 16:40 | disposition home or self-care (01) ==
LOC: M INFU 14:40
PROVIDERS: ATTEND Family Medicine
DX: D50.9 Iron deficiency anemia, unspecified (principal); Z91.048 Other nonmedicinal substance allergy status
CPT/HCPCS: 96365; J1439

== ENCOUNTER 2022-12-11 08:55 | Outpatient (CLI) | payer MEDICARE ==
[~2022-12-11] VITALS: Ht 165.1 cm; Wt 90.0 kg
[2022-12-11 08:55] VITALS: BP 164/79; O2SAT 95
[~2022-12-11 08:55] MED LIST changes: +FERRIC CARBOXYMALTOSE INJ 750 MG in NS 250 ML (>50kg) IV ONE
[2022-12-11 10:40] VITALS: BP 139/76; O2SAT 97
== END 2022-12-11 10:40 | disposition home or self-care (01) ==
LOC: M INFU 08:55
PROVIDERS: ATTEND Family Medicine
DX: D50.9 Iron deficiency anemia, unspecified (principal); Z91.048 Other nonmedicinal substance allergy status
CPT/HCPCS: 96365; J1439

== ENCOUNTER 2023-01-05 11:14 | Day surgery (SDC) | payer MEDICARE ==
[~2023-01-05] VITALS: Ht 165.1 cm; Wt 90.7 kg
[~2023-01-05 11:14] MED LIST changes: -FERRIC CARBOXYMALTOSE INJ 750 MG in NS 250 ML (>50kg) IV ONE; +GABA-282 PO; +NS 1,000 ML IV ONE
[2023-01-05 13:45] VITALS: TEMP 96.6
[2023-01-05 14:14] VITALS: BP 138/74; O2SAT 96
== END 2023-01-05 14:30 | disposition home or self-care (01) ==
LOC: M OPP 11:14
PROVIDERS: ATTEND Internal Medicine Gastroenterology
DX: Z86.010 Personal history of colon polyps (principal); D12.6 Benign neoplasm of colon, unspecified; K64.4 Residual hemorrhoidal skin tags; K64.8 Other hemorrhoids; Q43.8 Other specified congenital malformations of intestine; D50.9 Iron deficiency anemia, unspecified; K44.9 Diaphragmatic hernia without obstruction or gangrene; K29.70 Gastritis, unspecified, without bleeding; G47.30 Sleep apnea, unspecified; Z99.89 Dependence on other enabling machines and devices; Z79.02 Long term (current) use of antithrombotics/antiplatelets; Z79.2 Long term (current) use of antibiotics; Z79.51 Long term (current) use of inhaled steroids; Z79.891 Long term (current) use of opiate analgesic; Z79.899 Other long term (current) drug therapy

== ENCOUNTER → 2023-02-10 | Outpatient (CLI) | payer MEDICARE ==
[~2023-02-10] MED LIST changes: -NS 1,000 ML IV ONE
[2023-02-10 13:32] LABS: BASO # 0.1 10^3/uL (0.0-0.2); BASO % 0.8 % (0.0-1.0); EOS # 0.2 10^3/uL (0.0-0.5); EOS % 2.8 % (0.0-3.0); HEMATOCRIT 48.5 % (36.0-47.0); HEMOGLOBIN 15.2 g/dl (12.0-15.5); LYMPH # 1.6 10^3/uL (1.5-5.0); LYMPH % 25.4 % (24.0-44.0); MEAN CORPUSCULAR HEMOGLOBIN 27.2 pg (27.0-33.0); MEAN CORPUSCULAR HGB CONC 31.3 g/dl (32.0-36.5); MEAN CORPUSCULAR VOLUME 86.9 fl (80.0-96.0); MONO # 0.5 10^3/uL (0.0-0.8); MONO % 7.4 % (2.0-8.0); NEUTROPHILS # 4.1 10^3/uL (1.5-8.5); NEUTROPHILS % 63.4 % (36.0-66.0); PLATELET COUNT, AUTOMATED 258 10^3/uL (150-450); RED BLOOD COUNT 5.58 10^6/uL (4.00-5.40); WHITE BLOOD COUNT 6.5 10^3/uL (4.0-10.0)
[2023-02-10 14:00] LABS: HEMOGLOBIN A1c 5.3 % (4.0-6.0)
[2023-02-10 14:04] LABS: FREE T4 0.86 NG/DL (0.89-1.76)
[2023-02-10 14:05] LABS: ALBUMIN 3.8 G/DL (3.2-5.2); ALKALINE PHOSPHATASE 154 U/L (46-116); ALT/SGPT 26 U/L (7.0-40); AST/SGOT 21 U/L (<34); BILIRUBIN,TOTAL 0.8 MG/DL (0.3-1.2); BLOOD UREA NITROGEN 16 MG/DL (9-23); CALCIUM LEVEL 9.6 MG/DL (8.3-10.6); CARBON DIOXIDE LEVEL 29 MMOL/L (20-31); CHLORIDE LEVEL 109 MMOL/L (98-107); CHOLESTEROL LEVEL 213 MG/DL (<200); CHOLESTEROL RISK RATIO 3.57 (<5); CREATININE FOR GFR 0.72 MG/DL (0.55-1.30); GLOMERULAR FILTRATION RATE > 60.0 (>45); GLUCOSE, FASTING 99 MG/DL (74-106); HDL CHOLESTEROL 59.5 MG/DL (>40); LDL CHOLESTEROL 118.3 MG/DL (<100); NON-HDL-C 153.5 MG/DL; POTASSIUM SERUM 4.8 MMOL/L (3.5-5.1); SODIUM LEVEL 145 MMOL/L (136-145); THYROID STIMULATING HORMONE 2.401 uIU/ML (0.55-4.78); TOTAL PROTEIN 6.7 G/DL (5.7-8.2); TRIGLYCERIDES LEVEL 176 MG/DL (<150)
== END ==
LOC: M PLALAB 09:25
PROVIDERS: ATTEND Family Medicine
DX: E78.2 Mixed hyperlipidemia (principal); R73.01 Impaired fasting glucose

== ENCOUNTER → 2023-02-10 | Outpatient (CLI) | payer MEDICARE | LOC: M WHC 09:16 | PROVIDERS: ATTEND Family Medicine | DX: Z12.31 Encounter for screening mammogram for malignant neoplasm of breast (principal) ==

== ENCOUNTER → 2023-05-12 | Outpatient (CLI) | payer MEDICARE ==
[~2023-05-12] MED LIST changes: -NITR1CAP27 PO; +NITR50CA51 PO
[2023-05-12 10:23] LABS: C REACTIVE PROTEIN QUANTITATIV < 0.40 MG/DL (<1.0)
[2023-05-12 10:25] LABS: FREE T4 0.92 NG/DL (0.89-1.76); RHEUMATOID FACTOR QUANT 3.7 IU/ML (<14)
[2023-05-12 10:38] LABS: URIC ACID 4.4 MG/DL (3.1-7.8)
[2023-05-14 03:10] LABS: ANA (HEP2) Negative (.); CYCLIC CITRULLINATED PEPTIDE 10 units (0-19)
== END ==
LOC: M PLALAB 07:56
PROVIDERS: ATTEND Family Medicine
DX: M79.7 Fibromyalgia (principal); M25.50 Pain in unspecified joint

== ENCOUNTER → 2023-06-18 | Outpatient (CLI) | payer MEDICARE ==
[2023-06-18 15:45] LABS: BASO # 0.1 10^3/uL (0.0-0.2); BASO % 0.8 % (0.0-1.0); EOS # 0.1 10^3/uL (0.0-0.5); EOS % 1.4 % (0.0-3.0); HEMATOCRIT 45.1 % (36.0-47.0); HEMOGLOBIN 14.7 g/dl (12.0-15.5); LYMPH # 1.9 10^3/uL (1.5-5.0); LYMPH % 24.9 % (24.0-44.0); MEAN CORPUSCULAR HEMOGLOBIN 29.6 pg (27.0-33.0); MEAN CORPUSCULAR HGB CONC 32.6 g/dl (32.0-36.5); MEAN CORPUSCULAR VOLUME 90.7 fl (80.0-96.0); MONO # 0.6 10^3/uL (0.0-0.8); MONO % 8.2 % (2.0-8.0); NEUTROPHILS % 64.6 % (36.0-66.0); PLATELET COUNT, AUTOMATED 277 10^3/uL (150-450); RED BLOOD COUNT 4.97 10^6/uL (4.00-5.40); WHITE BLOOD COUNT 7.8 10^3/uL (4.0-10.0)
[2023-06-18 16:01] LABS: ERYTHROCYTE SEDIMENTATION RATE 21 mm/hr (0-30)
[2023-06-18 16:07] LABS: ALBUMIN 3.8 G/DL (3.2-5.2); ALKALINE PHOSPHATASE 117 U/L (46-116); ALT/SGPT 20 U/L (7.0-40); AST/SGOT 19 U/L (<34); BILIRUBIN,TOTAL 0.8 MG/DL (0.3-1.2); BLOOD UREA NITROGEN 22 MG/DL (9-23); CALCIUM LEVEL 9.8 MG/DL (8.3-10.6); CARBON DIOXIDE LEVEL 26 MMOL/L (20-31); CHLORIDE LEVEL 107 MMOL/L (98-107); CREATININE FOR GFR 0.66 MG/DL (0.55-1.30); GLOMERULAR FILTRATION RATE > 60.0 (>45); GLUCOSE, FASTING 119 MG/DL (74-106); RHEUMATOID FACTOR QUANT < 3.5 IU/ML (<14); SODIUM LEVEL 139 MMOL/L (136-145); TOTAL PROTEIN 6.4 G/DL (5.7-8.2)
[2023-06-18 16:13] LABS: TOTAL 25(OH) VITAMIN D 31.2 NG/ML (20.0-100.0)
[2023-06-18 16:14] LABS: THYROID STIMULATING HORMONE 1.504 uIU/ML (0.55-4.78)
== END ==
LOC: M PLALAB 14:21
PROVIDERS: ATTEND Psychiatry & Neurology Neurology
DX: R51.9 Headache, unspecified (principal); Z79.899 Other long term (current) drug therapy

== ENCOUNTER 2024-03-26 08:18 | Emergency (ER) | payer MEDICARE ==
[~2024-03-26 08:18] MED LIST changes: +ADVA1AER8 INH; -DIAZ1CON PO; +DIAZ5ORA PO; +GABA-1172 PO; -GABA-282 PO
[2024-03-26 10:44] VITALS: BP 163/73; TEMP 98.1; O2SAT 96
[2024-03-26] MEDS: IBUPROFEN 600MG TAB PO ONE (10:46)
== END 2024-03-26 10:53 | disposition home or self-care (01) ==
LOC: M ED 08:18
DX: S63.502A Unspecified sprain of left wrist, initial encounter (principal); S60.212A Contusion of left wrist, initial encounter; W00.0XXA Fall on same level due to ice and snow, initial encounter; Y92.410 Unspecified street and highway as the place of occurrence of the external cause; Y93.K1 Activity, walking an animal; Y99.9 Unspecified external cause status; M79.7 Fibromyalgia; K21.9 Gastro-esophageal reflux disease without esophagitis; E78.5 Hyperlipidemia, unspecified; J30.89 Other allergic rhinitis; Z86.79 Personal history of other diseases of the circulatory system; Z87.39 Personal history of other diseases of the musculoskeletal system and connective tissue; M19.032 Primary osteoarthritis, left wrist; Z79.899 Other long term (current) drug therapy

== ENCOUNTER → 2024-11-14 | Outpatient (REF) | payer MEDICARE, OTHER ==
[~2024-11-14] MED LIST changes: +LIDO1ADH93 TOP; -LIDO5DIS41 TOP; +TOPI-14 PO; -TOPI200T7 PO
== END ==
LOC: M SFHCWAGY 15:08
PROVIDERS: ATTEND Nurse Practitioner Family
DX: R10.2 Pelvic and perineal pain (principal)

== ENCOUNTER → 2024-11-14 | Outpatient (CLI) | payer MEDICARE | LOC: M WHC 10:04 | PROVIDERS: ATTEND Nurse Practitioner Family | DX: N95.2 Postmenopausal atrophic vaginitis (principal); N63.31 Unspecified lump in axillary tail of the right breast; N95.1 Menopausal and female climacteric states; R92.323 Mammographic fibroglandular density, bilateral breasts; Z13.820 Encounter for screening for osteoporosis; M79.621 Pain in right upper arm ==

== ENCOUNTER → 2024-11-14 | Outpatient (CLI) | payer MEDICARE | LOC: M WHC 10:04 | PROVIDERS: ATTEND Nurse Practitioner Family | DX: N95.2 Postmenopausal atrophic vaginitis (principal); N63.31 Unspecified lump in axillary tail of the right breast; Z13.820 Encounter for screening for osteoporosis; N95.1 Menopausal and female climacteric states; M85.89 Other specified disorders of bone density and structure, multiple sites ==

== ENCOUNTER → 2025-03-06 | Outpatient (CLI) | payer MEDICARE ==
[2025-03-06 13:52] LABS: BASO # 0.1 10^3/uL (0.0-0.2); BASO % 1.3 % (0.0-1.0); EOS # 0.2 10^3/uL (0.0-0.5); EOS % 2.5 % (0.0-3.0); LYMPH # 2.1 10^3/uL (1.5-5.0); LYMPH % 29.9 % (24.0-44.0); MONO # 0.6 10^3/uL (0.0-0.8); MONO % 8.9 % (2.0-8.0); NEUTROPHILS # 4.0 10^3/uL (1.5-8.5); NEUTROPHILS % 57.3 % (36.0-66.0); PLATELET COUNT, AUTOMATED 272 10^3/uL (150-450)
[2025-03-06 14:31] LABS: ESTIMATED AVERAGE GLUCOSE 114.0 MG/DL (60-110)
[2025-03-06 14:39] LABS: ALT/SGPT 20.0 U/L (7.0-40); AST/SGOT 23.0 U/L (<34); CALCIUM LEVEL 9.8 MG/DL (8.3-10.6); CARBON DIOXIDE LEVEL 27.0 MMOL/L (20-31); CHLORIDE LEVEL 110.0 MMOL/L (98-107); CHOLESTEROL LEVEL 176.0 MG/DL (<200); CHOLESTEROL RISK RATIO 2.45 (<5); CREATININE FOR GFR 0.77 MG/DL (0.55-1.30); GLOMERULAR FILTRATION RATE 83.5 (>45); IRON (FE) 163.0 UG/DL (50-170); LDL CHOLESTEROL 86.5 MG/DL (<100); NON-HDL-C 104.3 MG/DL; PERCENT SATURATION 45.3 % (13.2-45.0); POTASSIUM SERUM 4.6 MMOL/L (3.5-5.1); SODIUM LEVEL 144.0 MMOL/L (136-145); TRIGLYCERIDES LEVEL 89.0 MG/DL (<150)
== END ==
LOC: M PLALAB 11:16
PROVIDERS: ATTEND Nurse Practitioner Adult Health
DX: J45.20 Mild intermittent asthma, uncomplicated (principal); E78.2 Mixed hyperlipidemia; R73.01 Impaired fasting glucose; D50.9 Iron deficiency anemia, unspecified